=== PATIENT | male | born 1945 | race Caucasian/White ===

== ENCOUNTER → 2016-10-13 | Outpatient (CLI) | payer OTHER ==
[~2016-10-13] MED LIST: ALPH300C PO; ASCA500 PO; ASPCH81 PO; ASPI81TA28 PO; ATOR-22 PO; AZEL0.15 NAE; CEPH500C PO; CRDCD120 PO; CYAN1SUB12 SL; DILT120C67 PO; FLUT0.15 NAE; GABA-113 PO; HYDRELX3 PO; MULT-506 PO; NAPR1TAB9 PO; OMEG10007 PO; OXYB5TAB PO; OXYB5TAB74 PO; PRAM0.5T10 PO; PRLSR20 PO; SAW1000C PO; SIMV40TA2 PO; TAMS0.4C38 PO; TELM80TA4 PO; TRAZ50TA35 PO; VIT D PO; [UNRECOGNIZED DRUG - REMARK] PO
[2016-10-13 17:53] LABS: ALT/SGPT 37 U/L (12-78); AST/SGOT 19 U/L (15-37); BLOOD UREA NITROGEN 20 mg/dl (7-18); BUN/CREATININE RATIO 14.2 (10-20); CALCIUM 8.6 mg/dl (8.5-10.1); CARBON DIOXIDE 27 mmol/L (21-32); CHLORIDE 105 mmol/L (98-107); GLUCOSE 118 mg/dl (70-99); POTASSIUM 3.9 mmol/L (3.5-5.1); SODIUM 141 mmol/L (136-145)
[2016-10-13 17:56] LABS: ALB/GLOB RATIO 1.3 (0.9-2); ALKALINE PHOSPHATASE 71 U/L (45-117)
== END | disposition home or self-care (01) ==
LOC: C.LAB1850 16:19
PROVIDERS: ATTEND Internal Medicine
DX: Z11.59 Encounter for screening for other viral diseases (principal); N28.9 Disorder of kidney and ureter, unspecified

== ENCOUNTER → 2016-10-25 | Outpatient (CLI) | payer OTHER ==
--- NOTE | 2016-10-25 12:11 | DIAGNOSTIC IMAGING REPORT ---
CHEST 2 VIEWS ROUTINE CLINICAL HISTORY: Productive cough COMPARISON STUDY: 06/14/2007 FINDINGS: The cardiac and mediastinal contours are normal. There is no evidence of focal pulmonary consolidation. There is no evidence of failure. No pleural effusions are visualized.[ A linear opacity at the left lung base is felt to be atelectatic. IMPRESSION: No active disease in the chest. Electronically signed by: Johny Baca M.D. 10/25/2016 12:09 PM Dictated Date/Time: 10/25/2016 12:09 PM
== END | disposition home or self-care (01) ==
LOC: C.RAD1850 11:49
PROVIDERS: ATTEND Family Medicine
DX: R05 Cough (principal)

== ENCOUNTER → 2016-12-26 | Outpatient (CLI) | payer OTHER ==
[~2016-12-26] VITALS: Ht 171.5 cm; Wt 109.0 kg
[2016-12-26 11:21] VITALS: BP 125/87; PULSE 84; Ht 171.5 cm; Wt 109.0 kg
== END | disposition home or self-care (01) ==
LOC: C.NEUR 10:43
PROVIDERS: ATTEND Internal Medicine Pulmonary Disease
DX: G47.33 Obstructive sleep apnea (adult) (pediatric) (principal); J31.0 Chronic rhinitis

== ENCOUNTER → 2017-03-28 | Outpatient (CLI) | payer OTHER ==
[2017-03-28 12:32] LABS: BASO % 0.3 %; BASO ABS # 0.02 K/uL (0-0.2); COMPLETE YES; EOS % 3.2 %; HEMATOCRIT 42.7 % (42-52); IG% 0.2 %; LYMPH ABS # 2.05 K/uL (1.2-3.4); MEAN CELL VOLUME 90.7 fL (80-100); MEAN CORPUSCULAR HEMOGLOBIN 32.5 pg (25-34); MEAN CORPUSCULAR HGB CONC 35.8 g/dl (32-36); MEAN PLATELET VOLUME 11.2 fL (7.4-10.4); NEUT % 54.3 %; PLATELET COUNT 126 K/uL (130-400); RED BLOOD COUNT 4.71 M/uL (4.7-6.1); WHITE BLOOD COUNT 6.61 K/uL (4.8-10.8)
[2017-03-28 12:59] LABS: ALT/SGPT 36 U/L (12-78); BLOOD UREA NITROGEN 18 mg/dl (7-18); BUN/CREATININE RATIO 13.1 (10-20); CALCIUM 9.1 mg/dl (8.5-10.1); CARBON DIOXIDE 27 mmol/L (21-32); CHLORIDE 109 mmol/L (98-107); CHOLESTEROL 150 mg/dl (0-200); GLUCOSE 95 mg/dl (70-99); POTASSIUM 4.2 mmol/L (3.5-5.1); SODIUM 143 mmol/L (136-145)
[2017-03-28 13:08] LABS: ALB/GLOB RATIO 1.3 (0.9-2); ALKALINE PHOSPHATASE 66 U/L (45-117); AST/SGOT 20 U/L (15-37); CHOLESTEROL/HDL RATIO 3.1; HDL CHOLESTEROL 48 mg/dl; LDL CHOLESTEROL CALCULATED 69 mg/dl; TRIGLYCERIDES 167 mg/dl (0-150); VERY LOW DENSITY LIPOPROT CALC 33 mg/dl
--- NOTE | 2017-04-10 09:13 | CODING QUERY MEDICAL NECESSITY ---
SUPPORTING DIAGNOSIS NEEDED Dr. Gilmore, A supporting diagnosis is required for the test/procedure performed on this patient in order for us to be reimbursed by the patient's insurance. Please provide a supporting diagnosis for the following test/procedure listed below next to the test name along with your signature. *If there is no additional diagnosis for this patient that would support the following test/procedure please document that below next to the test/procedure. Test(s)/Procedure(s) that require a supporting diagnosis: * ([id number]) B12 VITAMIN LEVEL DIAGNOSIS: DATE OF SERVICE: 03/28/17 Provider Signature: Date: Thank you James Olson [facility] Information Management Once completed, please kindly fax back to [phone] For questions please call [phone]
== END | disposition home or self-care (01) ==
LOC: C.LAB1850 10:50
PROVIDERS: ATTEND Internal Medicine
DX: I10 Essential (primary) hypertension (principal); N40.0 Benign prostatic hyperplasia without lower urinary tract symptoms; G62.9 Polyneuropathy, unspecified

== ENCOUNTER 2017-04-01 19:04 | Emergency (ER) | payer OTHER ==
[~2017-04-01] VITALS: Ht 170.2 cm; Wt 112.0 kg
[~2017-04-01 19:04] MED LIST changes: -ALPH300C PO; -ASPI81TA28 PO; -ATOR-22 PO; -AZEL0.15 NAE; -CYAN1SUB12 SL; -DILT120C67 PO; -FLUT0.15 NAE; -GABA-113 PO; -OXYB5TAB PO; -OXYB5TAB74 PO; -PRAM0.5T10 PO; -SAW1000C PO; -TAMS0.4C38 PO; -TRAZ50TA35 PO
[2017-04-01 19:08] VITALS: Ht 170.2 cm; Wt 112.0 kg
[2017-04-01] MEDS ORDERED: LACTATED RINGER'S 1000ML 1,000 ML IV ONE (19:30)
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
[2017-04-01 19:45] LABS: INR 1.6 (0.9-1.1); PARTIAL THROMBOPLASTIN RATIO 1.4; PROTHROMBIN TIME (PATIENT) 17.6 SECONDS (9.0-12.0)
[2017-04-01] MEDS ORDERED: MoRPHine SULFATE 10 MG/ML CARP/VIAL IV PRN (19:45)
[2017-04-01] MEDS ORDERED: ONDANSETRON INJ 2 MG/ML 2 ML VIAL IV PRN (19:45)
[2017-04-01 19:55] LABS: HEMATOCRIT 19.1 % (42-52); MEAN CELL VOLUME 89.7 fL (80-100); MEAN CORPUSCULAR HEMOGLOBIN 30.5 pg (25-34); MEAN PLATELET VOLUME 9.7 fL (7.4-10.4); PLATELET COUNT 61 K/uL (130-400); PLT ESTIMATE DECREASED; RED BLOOD COUNT 2.13 M/uL (4.7-6.1)
[2017-04-01] MEDS ORDERED: RAPID SEQUENCE INDUCTION BAG ONE (19:57)
[2017-04-01] MEDS ORDERED: MoRPHine SULFATE 4 MG/ML 1 ML CARP\\VIAL ONE (20:00)
[2017-04-01 20:11] LABS: ALB/GLOB RATIO 1.1 (0.9-2); ALKALINE PHOSPHATASE 21 U/L (45-117); ALT/SGPT 11 U/L (12-78); AST/SGOT 9 U/L (15-37); BLOOD UREA NITROGEN 10 mg/dl (7-18); CALCIUM < 5.0 mg/dl (8.5-10.1); CARBON DIOXIDE 11 mmol/L (21-32); CHLORIDE 132 mmol/L (98-107); CREATININE 0.38 mg/dl (0.60-1.40); GLUCOSE 52 mg/dl (70-99); POTASSIUM 1.6 mmol/L (3.5-5.1); SODIUM 157 mmol/L (136-145)
[2017-04-01] MEDS ORDERED: ASPI81TA28 PO (20:11)
[2017-04-01] MEDS ORDERED: DILT120C67 PO (20:11)
[2017-04-01] MEDS ORDERED: ALPH300C PO (20:11)
[2017-04-01] MEDS ORDERED: SAW1000C PO (20:11)
[2017-04-01] MEDS ORDERED: GABA-113 PO (20:11)
[2017-04-01] MEDS ORDERED: OXYB5TAB74 PO (20:11)
[2017-04-01] MEDS ORDERED: FLUT0.15 NAE (20:11)
[2017-04-01] MEDS ORDERED: ATOR-22 PO (20:11)
[2017-04-01] MEDS ORDERED: CYAN1SUB12 SL (20:11)
[2017-04-01] MEDS ORDERED: OXYB5TAB PO (20:19)
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
[2017-04-01 20:23] LABS: ISTAT CREATININE 1.2 mg/dl (0.6-1.3); ISTAT HEMOGLOBIN 9.5 g/dl (14.0-18.0); ISTAT IONIZED CALCIUM 1.07 mmol/l (1.12-1.32)
[2017-04-01] MEDS ORDERED: TAMS0.4C38 PO (20:31)
[2017-04-01] MEDS ORDERED: TRAZ50TA35 PO (20:31)
[2017-04-01] MEDS ORDERED: AZEL0.15 NAE (20:31)
[2017-04-01] MEDS ORDERED: PRAM0.5T10 PO (20:41)
[2017-04-01 20:56] VITALS: BP 116/63; PULSE 76; O2SAT 100
[2017-04-01 20:57] VITALS: TEMP 36.4
[2017-04-01 21:00] VITALS: BP 112/66; PULSE 71; O2SAT 100
[2017-04-01 21:04] LABS: URINE APPEARANCE CLEAR (CLEAR); URINE BILIRUBIN NEG (NEG); URINE COLOR YELLOW; URINE NITRITE NEG (NEG); URINE SPECIFIC GRAVITY 1.023 (1.000-1.030); UROBILINOGEN NEG (NEG); ZZUR CULT IF INDIC CLEAN CATCH NO
[2017-04-01 21:06] LABS: MANUAL MICROSCOPIC REQUIRED? NO; REVIEW REQ? NO
[2017-04-01 21:14] VITALS: O2SAT 100
[2017-04-01 21:15] VITALS: BP 116/68; PULSE 81; TEMP 36.7; O2SAT 100
[2017-04-01 21:35] VITALS: BP 116/81; PULSE 70
== END 2017-04-01 21:36 | disposition short-term general hospital (02) ==
LOC: EDBD 19:04 → C.EDB 19:07
DX: S22.49XA Multiple fractures of ribs, unspecified side, initial encounter for closed fracture (principal); S36.09XA Other injury of spleen, initial encounter; T14.8 Other injury of unspecified body region; T79.4XXA Traumatic shock, initial encounter; V30 Occupant of three-wheeled motor vehicle injured in collision with pedestrian or animal; I10 Essential (primary) hypertension; I48.91 Unspecified atrial fibrillation; Z79.82 Long term (current) use of aspirin; Z79.899 Other long term (current) drug therapy

== ENCOUNTER → 2017-04-09 | Outpatient (CLI) | payer OTHER ==
[~2017-04-09] MED LIST changes: +ALPH300C PO; -ASCA500 PO; -ASPCH81 PO; +ASPI81TA28 PO; +ATOR-22 PO; +AZEL0.15 NAE; -CEPH500C PO; -CRDCD120 PO; +CYAN1SUB12 SL; +DILT120C67 PO; +FLUT0.15 NAE; +GABA-113 PO; -HYDRELX3 PO; -NAPR1TAB9 PO; -OMEG10007 PO; +OXYB5TAB PO; +PRAM0.5T10 PO; +SAW1000C PO; -SIMV40TA2 PO; +TAMS0.4C38 PO; +TRAZ50TA35 PO; -VIT D PO; -[UNRECOGNIZED DRUG - REMARK] PO
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
--- NOTE | 2017-04-27 12:08 | CODING QUERY MEDICAL NECESSITY ---
TREATMENT RENDERED WITHOUT A DIAGNOSIS To promote full compliance with coding requirements relating to patient care, physician participation is requested in all cases of telemetry monitor uncertainty. Please assist us with providing a diagnosis/symptom for the test(s) below: A diagnosis/symptom was not documented on your Order. A valid diagnosis/symptom is required to bill all insurances. Please remember that we are unable to code a diagnosis of rule out, probable, possible, questionable, or suspected. Tests that require a diagnosis: * CT LOWER EXTREM W/O IV CONT DIAGNOSIS: Provider Signature: Date: Thank you Yany Cristobal [facility] Information Management Once completed, please kindly fax back to [phone] For questions please call [phone]
== END | disposition home or self-care (01) ==
LOC: C.CTS 14:59
PROVIDERS: ATTEND Physical Medicine & Rehabilitation
DX: S82.142A Displaced bicondylar fracture of left tibia, initial encounter for closed fracture (principal); X58.XXXA Exposure to other specified factors, initial encounter

== ENCOUNTER → 2017-05-26 | Outpatient (CLI) | payer OTHER ==
--- NOTE | 2017-05-26 10:55 | DIAGNOSTIC IMAGING REPORT ---
VENOUS DOPP LOWER EXT UNILAT CLINICAL HISTORY: 71 years-old Male presenting with CALF PAIN. TECHNIQUE: Real-time grayscale and color and spectral Doppler ultrasound imaging of the veins of the right was performed. Compression and augmentation were also utilized. COMPARISON: None. FINDINGS: Right: Common femoral vein: Patent. Femoral vein: Patent. Greater saphenous vein: Patent. Popliteal vein: Patent. Calf veins: Limited visualization. Other: Heterogeneously hypoechoic laminar collection in the mid medial right calf at the site of clinical interest measuring 8.3 x 0.8 x 5.9 cm. This is avascular on color Doppler. IMPRESSION: 1. No evidence of deep venous thrombosis. 2. Complex fluid collection in the medial mid right calf could represent hematoma or less likely abscess. Electronically signed by: Marc Rocha M.D. 05/26/2017 10:53 AM Dictated Date/Time: 05/26/2017 10:51 AM
== END | disposition home or self-care (01) ==
LOC: C.ULTR 10:11
PROVIDERS: ATTEND Internal Medicine
DX: M79.604 Pain in right leg (principal); M79.89 Other specified soft tissue disorders

== ENCOUNTER → 2017-06-21 | Outpatient (CLI) | payer OTHER ==
[2017-06-21 10:36] LABS: BASO % 0.4 %; BASO ABS # 0.03 K/uL (0-0.2); COMPLETE YES; HEMATOCRIT 47.6 % (42-52); IG% 0.1 %; LYMPH % 36.6 %; LYMPH ABS # 2.48 K/uL (1.2-3.4); MEAN CORPUSCULAR HEMOGLOBIN 31.6 pg (25-34); MEAN CORPUSCULAR HGB CONC 35.5 g/dl (32-36); MEAN PLATELET VOLUME 10.4 fL (7.4-10.4); MONO % 8.7 %; NEUT % 53.2 %; PLATELET COUNT 133 K/uL (130-400); RED BLOOD COUNT 5.35 M/uL (4.7-6.1); WHITE BLOOD COUNT 6.77 K/uL (4.8-10.8)
[2017-06-21 11:14] LABS: ALT/SGPT 31 U/L (12-78); AST/SGOT 18 U/L (15-37); BLOOD UREA NITROGEN 19 mg/dl (7-18); BUN/CREATININE RATIO 14.2 (10-20); CALCIUM 9.8 mg/dl (8.5-10.1); CARBON DIOXIDE 29 mmol/L (21-32); CHLORIDE 104 mmol/L (98-107); GLUCOSE 102 mg/dl (70-99); SODIUM 139 mmol/L (136-145)
[2017-06-21 11:17] LABS: ALB/GLOB RATIO 1.1 (0.9-2); ALKALINE PHOSPHATASE 80 U/L (45-117)
== END | disposition home or self-care (01) ==
LOC: C.LAB1850 10:02
PROVIDERS: ATTEND Internal Medicine
DX: I10 Essential (primary) hypertension (principal)

== ENCOUNTER 2017-11-29 11:41 | Emergency (ER) | payer OTHER ==
[~2017-11-29] VITALS: Ht 170.2 cm; Wt 110.0 kg
[~2017-11-29 11:41] MED LIST changes: -PRAM0.5T10 PO; +PRAM0.5T13 PO; -TELM80TA4 PO; +TELM80TA6 PO
[2017-11-29 11:53] VITALS: TEMP 36.6; Ht 170.2 cm; Wt 110.0 kg
--- NOTE | 2017-11-29 12:56 | DIAGNOSTIC IMAGING REPORT ---
L ANKLE MIN 3 VIEWS ROUTINE CLINICAL HISTORY: R/O BONE INVOLVEMENT COMPARISON: None FINDINGS: Alignment of the left ankle is anatomic. No fracture or suspicious osseous lesion is present. There is no radiographic evidence of osteomyelitis. There is moderate posterior and plantar calcaneal spurring. There is mild ankle soft tissue swelling. Talar dome is intact. IMPRESSION: No acute osseous abnormality of the left ankle. Electronically signed by: Shane Mcdaniel M.D. 11/29/2017 12:54 PM Dictated Date/Time: 11/29/2017 12:53 PM
--- NOTE | 2017-11-29 13:24 | EMERGENCY ROOM VISIT NOTE ---
ED Visit Note First contact with patient: 12:00 The patient was examined by Jorge Molina PA-C. I agree with the history, physical and findings. Please see the note for disposition and details.
[2017-11-29] MEDS ORDERED: CEPH500C PO (13:30)
[2017-11-29] MEDS ORDERED: TRAM-10 PO (13:30)
[2017-11-29 13:57] VITALS: BP 143/82; PULSE 60; O2SAT 93
--- NOTE | 2017-11-29 15:43 | EMERGENCY ROOM VISIT NOTE ---
History First contact with patient: 12:00 Chief Complaint: ANKLE PAIN Stated Complaint: ANKLE PAIN History of Present Illness The patient is a 72 year old male who presents to the Emergency Room with complaints of left ankle pain. The patient has had this discomfort for the past 2 days. He thought the pain was secondary to his neuropathy. When he looked at his ankle this morning, he noticed some redness. The patient denies any recent trauma to the ankle. He has had a prior history of skin infections in his legs. He denies history of gout. He currently denies any pain extending into the knee, thigh or back region. He denies any prior history of DVT. He rates his discomfort a 10 out of 10 that is worsened when the area is touched or bumped Review of Systems 10 system review was performed and was negative except for pertinent positives and negatives as indicated in history of present illness Past Medical/Surgical History Medical Problems: (1) Atrial fibrillation (2) Hypertension (3) Neuropathy of both feet Family History FH: cancer FH: diabetes mellitus FH: heart disease FH: hypertension FH: kidney disease Social History Smoking Status: Never Smoker Alcohol Use: none Marital Status: Occupation Status: employed Current/Historical Medications Scheduled Alpha-Lipoic Acid (Thioctic Ac (Alpha Lipoic Acid), 300 MG PO UD Aspirin (Aspirin Ec), 81 MG PO DAILY Cephalexin Monohydrate (Keflex), 500 MG PO QID Cyanocobalamin (Vitamin B-12), 2,500 MCG SL DAILY Diltiazem Hcl Extended Release (Diltiazem Hcl Er), 120 MG PO DAILY Fluticasone Propionate (Nasal) (Flonase Allergy Relief), 2 SPRAYS ROXANA DAILY Gabapentin (Neurontin), 300 MG PO TID Multivitamin (Multivitamin), 1 TAB PO QAM Omeprazole (Prilosec), 20 MG PO QAM Tamsulosin Hcl (Flomax), 0.8 MG PO HS Telmisartan/Hctz (Micardis Hct 80MG/12.5MG), 1 TAB PO QAM Trazodone Hcl (Trazodone), 50 MG PO HS Scheduled PRN Azelastine Hcl (Astepro), 2 SPRY ROXANA BID PRN for Nasal Congestion Oxybutynin Chloride (Oxybutynin Chloride Er), 5 MG PO DAILY PRN for Urinary Discomfort Pramipexole Dihydrochloride (Pramipexole Dihydrochlori), 0.5 MG PO HS PRN for Restless Legs Tramadol (Ultram), 1-2 TAB PO Q4H PRN for Pain Physical Exam Vital Signs Date Time Temp Pulse Resp B/P (MAP) Pulse Ox O2 Delivery O2 Flow Rate FiO2 11/29/17 13:57 60 18 143/82 93 11/29/17 11:53 36.6 69 16 171/84 92 Physical Exam CONSTITUTIONAL: Healthy and well nourished. Alert and oriented X 3 with positive affect. Patient appears in moderate discomfort from pain. HEENT: Normocephalic, atraumatic. Pupils equal, round and reactive. NECK: Full active range of motion without discomfort. RESPIRATORY: Clear to auscultation bilaterally with no wheezing, crackles, rhonchi or stridor. CARDIOVASCULAR: Regular rate and rhythm with no murmurs, rubs or gallops. MUSCULOSKELETAL: Examination of the left medial ankle shows an area of erythema that is notably tender to palpation. No vesicles, pustules, induration or fluctuance noted. The patient has no edema, erythema or tenderness to palpation of the anterior, posterior or lateral ankle region. Gentle passive flexion and extension of the ankle does not worsen his discomfort. Pedal pulses are intact. INTEGUMENTARY: No rash or other significant dermatologic conditions noted. NEUROLOGIC: No focal neurologic deficits noted. Left foot and toes are sensory intact. Medical Decision & Procedures ED Course Patient history and physical exam were performed. Nurse's notes were reviewed. Vital signs were reviewed, showing a marginally elevated blood pressure of 171 /84. Clinical exam is most consistent with cellulitis. I did discuss other possibilities, including gout, septic joint and other dermatologic conditions. I did suggest treatment with Keflex antibiotics. He should notice a significant improvement of the erythema within the next 48 hours. He was instructed to return to the emergency department for any progressively worsening symptoms or developing fever. The patient was provided a prescription for OxyIR as needed for breakthrough pain. He was warned about sedation and constipation while taking this medicine. He was encouraged to follow-up with his family doctor if symptoms persist. The patient was happy with plan of care, voiced understanding of all discharge instructions, and rated his discomfort a 6 out of 10 at the conclusion of my exam. The patient was also seen and examined by Dr. Maciejczyk, ED attending physician , who agrees with workup and plan of care. Medical Decision See previous section [place] Drug Monitoring Program Search Results: patient reviewed within database, no issues identified Blood Pressure Screening Patient's blood pressure: Elevated blood pressure Blood pressure disposition: Did not require urgent referral Impression Primary Impression: Cellulitis of left ankle Departure Information Dispostion Home / Self-Care Condition FAIR Prescriptions Tramadol (Ultram) 50 Mg Tab 1-2 TAB PO Q4H Y for Pain, #20 TAB For Initial Treatment Prov: Jorge Molina PA 11/29/17 Cephalexin Monohydrate (Keflex) 500 Mg Cap 500 MG PO QID for 7 Days, #28 CAP Prov: Jorge Molina PA 11/29/17 Forms HOME CARE DOCUMENTATION FORM, IMPORTANT VISIT INFORMATION Patient Instructions My [facility] Additional Instructions Complete all Keflex antibiotics as prescribed. Tylenol 1000 mg every 6-8 hours as needed for pain. Do not exceed Tylenol 3000 mg in a 24-hour period. Ultram if needed for worse pain. The redness should start to fade away within the next 48 hours. Follow up with your family doctor as needed with any persistent symptoms. Return to the emergency department for any progressively worsening redness, swelling, fever or pain.
== END 2017-11-29 13:57 | disposition home or self-care (01) ==
LOC: C.EDB 11:42 → C.EDD 13:57
DX: L03.116 Cellulitis of left lower limb (principal); M25.572 Pain in left ankle and joints of left foot; I10 Essential (primary) hypertension; Z79.899 Other long term (current) drug therapy; G62.9 Polyneuropathy, unspecified

== ENCOUNTER → 2017-12-24 | Outpatient (CLI) | payer OTHER ==
[~2017-12-24] MED LIST changes: -ATOR-22 PO; +CHOL100010 PO; +MAGN500T4 PO; +NIAC1CAP PO; +OMEG10007 PO; -SAW1000C PO; +TRAM-10 PO; +VITA-88 PO
[2017-12-24 12:33] LABS: HEMOGLOBIN A1C 5.6 % (4.5-5.6)
[2017-12-24 12:41] LABS: ALT/SGPT 34 U/L (12-78); BLOOD UREA NITROGEN 23 mg/dl (7-18); CALCIUM 9.5 mg/dl (8.5-10.1); CARBON DIOXIDE 31 mmol/L (21-32); CHOLESTEROL 239 mg/dl (0-200); CREATININE 1.31 mg/dl (0.60-1.40); GLUCOSE 104 mg/dl (70-99); POTASSIUM 4.1 mmol/L (3.5-5.1); SODIUM 136 mmol/L (136-145)
[2017-12-24 12:44] LABS: ALKALINE PHOSPHATASE 80 U/L (45-117); AST/SGOT 17 U/L (15-37); LDL CHOLESTEROL CALCULATED 149 mg/dl; TOTAL PROTEIN 7.7 gm/dl (6.4-8.2)
== END | disposition home or self-care (01) ==
LOC: C.LAB1850 09:56
PROVIDERS: ATTEND Internal Medicine
DX: E78.5 Hyperlipidemia, unspecified (principal); R73.03 Prediabetes

== ENCOUNTER → 2017-12-25 | Outpatient (CLI) | payer OTHER ==
[~2017-12-25] VITALS: Ht 170.2 cm; Wt 108.0 kg
[2017-12-25 12:37] VITALS: BP 143/80; PULSE 91; Ht 170.2 cm; Wt 108.0 kg
== END | disposition home or self-care (01) ==
LOC: C.NEUR 12:15
PROVIDERS: ATTEND Internal Medicine Pulmonary Disease
DX: G47.33 Obstructive sleep apnea (adult) (pediatric) (principal); J31.0 Chronic rhinitis; J30.89 Other allergic rhinitis; I10 Essential (primary) hypertension; J45.909 Unspecified asthma, uncomplicated; Z87.891 Personal history of nicotine dependence; E78.5 Hyperlipidemia, unspecified; G47.00 Insomnia, unspecified; G62.9 Polyneuropathy, unspecified; R73.03 Prediabetes; Z85.528 Personal history of other malignant neoplasm of kidney; Z79.82 Long term (current) use of aspirin; Z79.899 Other long term (current) drug therapy

== ENCOUNTER → 2018-01-14 | Day surgery (SDC) | payer OTHER ==
[2017-12-27 09:54] VITALS: Ht 171.5 cm; Wt 107.3 kg
[~2018-01-14] VITALS: Ht 171.5 cm; Wt 107.3 kg
[~2018-01-14] MED LIST changes: +LIDOCAINE HCL 2% 2 ML VIAL (20MG/ML) ONE; +PROPOFOL IV EMULSION 10 MG/ML 20 ML VIAL IV ONE; +SODIUM CHLORIDE 0.9% 500ML 500 ML IV ONE
--- NOTE | 2018-01-14 09:50 | Endo History and Physical ---
History & Physical Date of Service: Jan 14, 2018. Chief Complaint: screening Referring Physician: Dr. Gilmore History of Present Illness 72 yo CM who presents for screening colonoscopy. Past Surgical History Hx Cardiac Surgery: No Hx Internal Defibrillator: No Hx Pacemaker: No Hx Abdominal Surgery: No Hx of Implantable Prosthesis: No Hx Post-Op Nausea and Vomiting: No Hx Cancer Surgery: Yes (RIGHT PARTIAL NEPHRECTOMY) Hx Thoracic Surgery: No Hx Orthopedic: Yes (KNEE ARTHROSCOPY, CTR, SHOULDER ARTHROSCOPY) Hx Urinary Tract Surgery: No Family History None Social History Smoking Status: Former Smoker Hx Substance Use: No Hx Alcohol Use: Yes (2 DRINKS/MONTH) Allergies Coded Allergies: No Known Allergies (Verified , 12/27/17) Current Medications Reported Home Medications Medications Dose Route/Sig Max Daily Dose Days Date Category Dose Instructions Niacin Flush Free (Niacin W/ Inositol) 1 Cap Cap 1 Cap PO QAM 12/27/17 Reported Cvs Vitamin E (Vitamin E) 400 Unit Cap 400 Units PO QAM 12/27/17 Reported Vitamin D (Cholecalciferol) 1,000 Unit Tab 1,000 Units PO QAM 12/27/17 Reported Keyes-3 (Fish Oil) 1 Ea Cap 1 Cap PO QAM 12/27/17 Reported Magnesium (Magnesium Oxide (Mg Supplement) 500 Mg Tab 500 Mg PO UD 12/27/17 Reported Ultram (Tramadol HCl) 50 Mg Tab 1-2 Tab PO Q4H PRN 11/29/17 Rx For Initial Treatment Pramipexole Dihydrochlori (Pramipexole Dihydrochloride) 0.5 Mg Tab 0.5 Mg PO HS PRN 04/01/17 Reported Flomax (Tamsulosin Hcl) 0.4 Mg Cap 0.8 Mg PO HS 04/01/17 Reported Astepro (Azelastine Hcl) 0.15 % Spr 2 [place] ROXANA BID PRN 04/01/17 Reported Trazodone (Trazodone HCl) 50 Mg Tab 50 Mg PO HS 04/01/17 Reported Oxybutynin Chloride Er (Oxybutynin Chloride) 5 Mg Tab 5 Mg PO DAILY PRN 04/01/17 Reported Neurontin (Gabapentin) 300 Mg Cap 300 Mg PO TID 04/01/17 Reported Flonase Allergy Relief (Fluticasone Propionate (Nasal)) 50 Mcg/Act Spr 2 Sprays ROXANA QAM 04/01/17 Reported Vitamin B-12 (Cyanocobalamin) 2,500 Mcg Sub 2,500 Mcg SL DAILY 04/01/17 Reported Alpha Lipoic Acid (Alpha-Lipoic Acid (Thioctic Ac) 300 Mg Cap 300 Mg PO UD 04/01/17 Reported Diltiazem Hcl Er (Diltiazem Hcl Extended Release) 120 Mg Cap 120 Mg PO QAM 04/01/17 Reported Aspirin Ec (Aspirin) 81 Mg Tab 81 Mg PO QPM 04/01/17 Reported Multivitamin (Multivitamins) Tab 1 Tab PO QAM 11/22/10 Reported Micardis Hct 80MG/12.5MG (Telmisartan/Hydrochlorothiazide) Tab 0.5 Tab PO QAM 11/22/10 Reported Prilosec (Omeprazole) 20 Mg Capcr 20 Mg PO QAM 05/01/08 Reported Vital Signs Weight (Kilograms): 107.27 Height (Feet): 5 Height (Inches): 7.5 Date Time Temp Pulse Resp B/P (MAP) Pulse Ox O2 Delivery O2 Flow Rate FiO2 01/14/18 09:41 36.6 52 18 139/91 (107) 93 Room Air Physical Exam General Appearance: WD/WN, no apparent distress Respiratory/Chest: Auscultation: breath sounds normal Cardiovascular: Heart Auscultation: RRR Abdomen: Bowel Sounds: normal Inspection & Palpation: soft, non-distended, no tenderness, guarding & rebound Assessment and Plan Assessment: 72 yo CM who presents for screening colonoscopy. Plan: Proceed with colonoscopy.
--- NOTE | 2018-01-14 11:04 | GI REPORT ---
Procedure Date: 01/14/2018 10:22 AM Procedure: Colonoscopy Indications: Screening for colorectal malignant neoplasm Medicines: Monitored Anesthesia Care Complications: No immediate complications. Estimated Blood Loss: Estimated blood loss: none. Procedure: Pre-Anesthesia Assessment: - Prior to the procedure, a History and Physical was performed, and patient medications and allergies were reviewed. The patient's tolerance of previous anesthesia was also reviewed. The risks and benefits of the procedure and the sedation options and risks were discussed with the patient. All questions were answered, and informed consent was obtained. Prior Anticoagulants: The patient has taken aspirin, last dose was 3 days prior to procedure. ASA Grade Assessment: III - A patient with severe systemic disease. After reviewing the risks and benefits, the patient was deemed in satisfactory condition to undergo the procedure. After I obtained informed consent, the scope was passed under direct vision. Throughout the procedure, the patient's blood pressure, pulse, and oxygen saturations were monitored continuously. The scope was introduced through the anus and advanced to the terminal ileum. The colonoscopy was performed without difficulty. The patient tolerated the procedure well. The quality of the bowel preparation was good. The terminal ileum, ileocecal valve, appendiceal orifice, and rectum were photographed. Findings: The perianal and digital rectal examinations were normal. Two sessile polyps were found in the transverse colon and ascending colon. The polyps were 5 to 7 mm in size. These polyps were removed with a hot snare. Resection and retrieval were complete. A 8 mm polyp was found in the transverse colon. The polyp was flat. The polyp was removed with a hot snare. Resection and retrieval were complete. To prevent bleeding after the polypectomy, one hemostatic clip was successfully placed (MR conditional). There was no bleeding at the end of the procedure. Multiple small-mouthed diverticula were found in the sigmoid colon. Non-bleeding internal hemorrhoids were found during retroflexion. The hemorrhoids were small. Impression: - Two 5 to 7 mm polyps in the transverse colon and in the ascending colon, removed with a hot snare. Resected and retrieved. - One 8 mm polyp in the transverse colon, removed with a hot snare. Resected and retrieved. Clip (MR conditional) was placed. - Diverticulosis in the sigmoid colon. - Non-bleeding internal hemorrhoids. Recommendation: - Resume previous diet. - Continue present medications. - Repeat colonoscopy for surveillance based on pathology results. - Return to primary care physician as previously scheduled. Greg Rivero, DO 01/14/2018 11:04:08 AM This report has been signed electronically. Note Initiated On: 01/14/2018 10:22 AM I attest to the content of the Intraoperative Record and orders documented therein, exceptions below
--- NOTE | 2018-01-14 11:16 | Anesthesiology Progress Note ---
Anesthesia Post Op Note Date & Time Jan 14, 2018 at 11:16 Vital Signs Pain Intensity: 0 Vital Signs Past 12 Hours Date Time Temp Pulse Resp B/P (MAP) Pulse Ox O2 Delivery O2 Flow Rate FiO2 01/14/18 11:05 58 16 114/69 (84) 94 Room Air 01/14/18 09:41 36.6 52 18 139/91 (107) 93 Room Air Notes Mental Status: alert / awake / arousable, participated in evaluation Pt Amnestic to Procedure: Yes Nausea / Vomiting: adequately controlled Pain: adequately controlled Airway Patency, RR, SpO2: stable & adequate BP & HR: stable & adequate Hydration State: stable & adequate Anesthetic Complications: no major complications apparent
[2018-01-14 11:35] VITALS: BP 130/79; PULSE 49; O2SAT 94
--- NOTE | 2018-01-14 12:08 | Discharge Instructions ---
Endoscopy Patient Instructions Date / Procedure(s) Performed Jan 14, 2018. Colonoscopy Allergy Information Coded Allergies: No Known Allergies (Verified , 12/27/17) Discharge Date / Findings Jan 14, 2018. Colon polyps Diverticulosis Internal hemorrhoids Medication Instructions Stopped Medication(s): stopped ASA and vitamins and supplements on Sunday Restart Stopped Medication(s): OK to resume all medications today as prescribed Reported Home Medications Medications Dose Route/Sig Max Daily Dose Days Date Category Dose Instructions Niacin Flush Free (Niacin W/ Inositol) 1 Cap Cap 1 Cap PO QAM 12/27/17 Reported [facility] Vitamin E (Vitamin E) 400 Unit Cap 400 Units PO QAM 12/27/17 Reported Vitamin D (Cholecalciferol) 1,000 Unit Tab 1,000 Units PO QAM 12/27/17 Reported [place]-3 (Fish Oil) 1 Ea Cap 1 Cap PO QAM 12/27/17 Reported Magnesium (Magnesium Oxide (Mg Supplement) 500 Mg Tab 500 Mg PO UD 12/27/17 Reported Ultram (Tramadol HCl) 50 Mg Tab 1-2 Tab PO Q4H PRN 11/29/17 Rx For Initial Treatment Pramipexole Dihydrochlori (Pramipexole Dihydrochloride) 0.5 Mg Tab 0.5 Mg PO HS PRN 04/01/17 Reported Flomax (Tamsulosin Hcl) 0.4 Mg Cap 0.8 Mg PO HS 04/01/17 Reported Astepro (Azelastine Hcl) 0.15 % Spr 2 Velma ROXANA BID PRN 04/01/17 Reported Trazodone (Trazodone HCl) 50 Mg Tab 50 Mg PO HS 04/01/17 Reported Oxybutynin Chloride Er (Oxybutynin Chloride) 5 Mg Tab 5 Mg PO DAILY PRN 04/01/17 Reported Neurontin (Gabapentin) 300 Mg Cap 300 Mg PO TID 04/01/17 Reported Flonase Allergy Relief (Fluticasone Propionate (Nasal)) 50 Mcg/Act Spr 2 Sprays ROXANA QAM 04/01/17 Reported Vitamin B-12 (Cyanocobalamin) 2,500 Mcg Sub 2,500 Mcg SL DAILY 04/01/17 Reported Alpha Lipoic Acid (Alpha-Lipoic Acid (Thioctic Ac) 300 Mg Cap 300 Mg PO UD 04/01/17 Reported Diltiazem Hcl Er (Diltiazem Hcl Extended Release) 120 Mg Cap 120 Mg PO QAM 04/01/17 Reported Aspirin Ec (Aspirin) 81 Mg Tab 81 Mg PO QPM 04/01/17 Reported Multivitamin (Multivitamins) Tab 1 Tab PO QAM 11/22/10 Reported Micardis Hct 80MG/12.5MG (Telmisartan/Hydrochlorothiazide) Tab 0.5 Tab PO QAM 11/22/10 Reported Prilosec (Omeprazole) 20 Mg Capcr 20 Mg PO QAM 05/01/08 Reported Provider Instructions Activity Restrictions - No exercising or heavy lifting for 24 hours. - Do not drink alcohol the day of the procedure. - Do not drive a car or operate machinery until the day after the procedure. - Do not make any important decisions or sign important papers in 24 hours after the procedure. Following Day: - Return to full activity which may include returning to work/school. Diet Start your diet with liquids and light foods (jello, soup, juice, toast). Then eat your usual diet if not nauseated. Treatment For Common After Affects For mild abdominal pain, bloating, or excessive gas: - Rest - Eat lightly - Lie on right side Follow-Up Information Follow-up with Dr. Gilmore as scheduled Anesthesia Information What You Should Know You have had a procedure that required some medicine to reduce anxiety and discomfort. This treatment is called moderate sedation. After receiving the treatment, you may be sleepy, but you will be able to breathe on your own. The effects of the treatment may last for several hours. Follow these instructions along with Activity/Diet recommendations noted above: * Do NOT do anything where dizziness or clumsiness would be dangerous. * Rest quietly at home today, then you can be up and about tomorrow. * Have a responsible person stay with you the rest of today. * You may have had an I.V. today. If so, you may take the dressing off later today. Recommendations Call your doctor if: * Trouble breathing * Continuous vomiting for more than 24 hours * Temperature above 101 degrees * Severe abdominal pain or bloating * Pain not relieved by pain medicine ordered * There is increased drainage or redness from any incision * A large amount of rectal bleeding greater than 2-3 tablespoons. (If you had a polyp/s removed or have hemorrhoids, a small amount of blood - from the rectum is to be expected.) * You have any unanswered questions or concerns. IN THE EVENT OF A SERIOUS EMERGENCY, GO TO THE NEAREST EMERGENCY ROOM Your discharge instructions were prepared by provider Greg Rivero. Patient Instructions Signature Page Chriss Sen Patient (or Guardian) Signature/Date: I have read and understand the instructions given to me by my caregivers. Caregiver/RN/Doctor Signature/Date: The above-named patient and/or guardian has received patient instructions on this date. + Original Patient Signature Page (only) stays with chart. Please make copy for patient.
== END | disposition home or self-care (01) ==
LOC: C.GI 09:20
PROVIDERS: ATTEND Internal Medicine
DX: Z12.11 Encounter for screening for malignant neoplasm of colon (principal); D12.2 Benign neoplasm of ascending colon; D12.3 Benign neoplasm of transverse colon; K57.30 Diverticulosis of large intestine without perforation or abscess without bleeding; K64.8 Other hemorrhoids; G47.33 Obstructive sleep apnea (adult) (pediatric); I10 Essential (primary) hypertension; Z90.5 Acquired absence of kidney; Z98.890 Other specified postprocedural states; Z87.891 Personal history of nicotine dependence; Z79.82 Long term (current) use of aspirin; Z79.899 Other long term (current) drug therapy; Z85.528 Personal history of other malignant neoplasm of kidney

== ENCOUNTER → 2018-01-29 | Outpatient (CLI) | payer OTHER ==
[~2018-01-29] MED LIST changes: -LIDOCAINE HCL 2% 2 ML VIAL (20MG/ML) ONE; -PROPOFOL IV EMULSION 10 MG/ML 20 ML VIAL IV ONE; -SODIUM CHLORIDE 0.9% 500ML 500 ML IV ONE
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
--- NOTE | 2018-01-29 13:48 | DIAGNOSTIC IMAGING REPORT ---
LEFT FOOT 3 VIEWS CLINICAL HISTORY: Left foot pain. FINDINGS: 3 views of the left foot are compared to study dated 03/25/2014. The skeletal structures are osteopenic. No fracture is identified. Degenerative spurring is seen along the dorsal aspect of the tarsal bones. Minimal arthritic change is seen at the first metatarsophalangeal joint. Large dorsal and plantar calcaneal enthesophytes are identified. The overlying soft tissues are within normal limits. IMPRESSION: 1. No left foot fracture is identified. 2. Osteopenia, mild degenerative change, and large heel spurs as above. Electronically signed by: Romario Murphy M.D. 01/29/2018 1:46 PM Dictated Date/Time: 01/29/2018 1:45 PM
== END | disposition home or self-care (01) ==
LOC: C.RAD1850 13:17
PROVIDERS: ATTEND Internal Medicine
DX: M85.872 Other specified disorders of bone density and structure, left ankle and foot (principal); M19.072 Primary osteoarthritis, left ankle and foot; M77.32 Calcaneal spur, left foot; S89.92XA Unspecified injury of left lower leg, initial encounter; X58.XXXA Exposure to other specified factors, initial encounter

== ENCOUNTER 2020-11-15 07:40 | Inpatient (IN) ==
[2020-11-15] MEDS ORDERED: ACETAMINOPHEN 1,000 MG/100 ML VIAL IV STA (08:15)
[2020-11-15] MEDS ORDERED: IPRATROPIUM BROMIDE/ALBUTEROL respimat INH INH STA (08:15)
[2020-11-15] MEDS ORDERED: SODIUM CHLORIDE 0.9% 1000ML 1,000 ML IV ONE (08:15)
[2020-11-15] MEDS ORDERED: guaiFENesin 600 MG TABCR PO STA (08:15)
[2020-11-15] MEDS ORDERED: DEXAMETHASONE SOD INJ 10 MG/ML VIAL IV ONE (08:16)
[2020-11-15 08:25] LABS: Basophils # (auto) 0.01 K/uL (0-0.2); Basophils % (auto) 0.1 %; Eosinophils # (auto) 0.01 K/uL (0-0.5); Eosinophils % (auto) 0.1 %; Hematocrit (blood only) 48.8 % (42-52); Hemoglobin 17.1 g/dL (14.0-18.0); Immature Granulocytes # (auto) 0.03 K/uL (0.00-0.02); Immature Granulocytes % (auto) 0.4 %; Lymphocytes # (auto) 1.46 K/uL (1.2-3.4); Lymphocytes % (auto) 19.3 %; Mean Corpuscular Volume 91.4 fL (80-100); Mean Platelet Volume 10.9 fL (7.4-10.4); Monocytes # (auto) 0.61 K/uL (0.11-0.59); Neutrophils # (auto) 5.46 K/uL (1.4-6.5); Neutrophils % (auto) 72.1 %; Platelet Count 137 K/uL (130-400); RDW Coefficient of Variation 12.6 % (11.5-14.5); RDW Standard Deviation 42.2 fL (36.4-46.3); Red Blood Count 5.34 M/uL (4.7-6.1); White Blood Count 7.58 K/uL (4.8-10.8)
[2020-11-15 08:45] LABS: Alanine Aminotransferase 50 U/L (12-78); Albumin Level 3.4 gm/dl (3.4-5.0); Aspartate Aminotransferase 58 U/L (15-37); BUN Creatinine Ratio 18.1 (10-20); Bilirubin Direct 0.2 mg/dl (0-0.2); Blood Urea Nitrogen 25 mg/dl (7-18); Calcium 9.3 mg/dl (8.5-10.1); Carbon Dioxide 30 mmol/L (21-32); Chloride 104 mmol/L (98-107); Creatinine Clr Calc Pharmacy 57.4 ml/min; Est GFR (African American) 58.9; Est GFR (Non-African American) 50.8; Glucose 86 mg/dl (70-99); Lipase 112 U/L (73-393); Magnesium 2.4 mg/dl (1.8-2.4); Potassium 3.5 mmol/L (3.5-5.1); Sodium 140 mmol/L (136-145)
[2020-11-15 08:48] LABS: Albumin Globulin Ratio 0.8 (0.9-2); Alkaline Phosphatase 55 U/L (45-117); Bilirubin,Total 0.9 mg/dl (0.2-1); Globulin 4.2 gm/dl (2.5-4.0); Phosphorus 1.8 mg/dl (2.5-4.9); Total Protein 7.6 gm/dl (6.4-8.2); Troponin I < 0.015 ng/ml (0-0.045)
--- NOTE | 2020-11-15 09:00 | XRay Report ---
XR chest 1V portable CLINICAL HISTORY: Atypical chest pain COMPARISON STUDY: Chest x-ray dated 2006, CT scan performed January 2020 FINDINGS: The heart is the upper limits of normal in size. There is aortic tortuosity/ectasia. There are multiple old left-sided rib fractures. There is bilateral mucosal thickening, a finding which debbie ears new. Diagnostic considerations include mild pulmonary vascular congestion versus interstitial in flammatory/infectious process. Clinical and radiographic follow-up is recommended.[ IMPRESSION: Interval development of mild interstitial thickening. Likely diagnostic considerations in clude mild pulmonary vascular congestion versus interstitial infectious/inflammatory process. Clinica l and radiographic follow-up is recommended. ACT 112: Negative or not required by law. Electronically signed by: Johny Baca M.D. 11/15/2020 8:59 AM
--- NOTE | 2020-11-15 09:50 | Emergency Department Note ---
Impression & Plan Pneumonia due to COVID-19 virus, Hypoxemia, Former smoker, Hypophosphatemia ED Provider Note NAME: HAZEL LOCKETT AGE: 75 SEX: M ARRIVES VIA: Ambulance INFORMANT: Patient, ED PROVIDER(S): Javy Herron MD CHIEF COMPLAINT: Shortness of breath. PLAN: Disposition: Admit MEDICAL DECISION MAKING: The patient is a pleasant 75 y/o gentleman with a pmhx of HTN, HLD, former smoker who presents to the emergency department with worsening shortness of br eath, cough, body aches, diarrhea, sore throat evolving over the past 2 weeks with Covid19 test performed on 11/10 at [facility] that returned positive yesterday. The patient reports he was also diagnosed with PNA on CXR and was started on Azithromycin and prednisone but has had worsening symptoms over the past 24 hours and has noted low home O2 saturations. On arrival the patient is fatigued uncomfortable-appearing but in NAD, AF, O2 saturation 87% on RA and otherwise VSS. The patient appears clinically dry. He has scant intermittent wheeze and diminished at bases. EKG without overt acute ischemia. CXR with interstitial thickening, which is suspicious for PNA given patient's known Covid19 status. WBC, H/H, platelets wnl. Chemistry without acidosis. BUN 25 c/w patient's clinially dry appearance. Phosphorus 1.8 with repletion initiated. AST 58, nonspecific. Otherwise, LFTs and electrolytes unremarkable. Troponin negative/undetectable. BNP wnl. Treatment initiated with IVF hydration, apap, guaifenesin, dexamethasone, and combivent. Given patient hypoxia in the setting of Covid19 pna, reasonable to admit for further management. Patient agrees. Dr. Hoffman, [facility] hospitalist, will evaluate the patient for admission. Triage Nursing notes reviewed and agree them. Prior medical records reviewed Vital Signs: reviewed and remarkable for hypoxia. Differential diagnosis: Reactive airway disease, pneumonia, pneumothorax, COPD, CHF, infections, cardiac ischemia, pulmonary embolism, musculoskeletal, gastrointestinal, as well as other pathologies. ER treatment provided: See below. Diagnostics interpreted by me: ECG: Sinus bradycardia, 57 bpm, incomplete but right bundle branch block, no ectopy, no overt ST elevation depression, QTC 100. Cardiac Monitoring: An order for continuous cardiac monitoring was placed and demonstrated Sinus bradycardia, 57 bpm, no ectopy Laboratory studies: See below Imaging studies: XR chest 1V portable CLINICAL HISTORY: Atypical chest pain COMPARISON STUDY: Chest x-ray dated 2006, CT scan performed January 2020 FINDINGS: The heart is the upper limits of normal in size. There is aortic tortuosity/ectasia. There are multiple old left-sided rib fractures. There is bilateral mucosal thickening, a finding which appears new. Diagnostic considerations include mild pulmonary vascular congestion versus interstitial inflammatory/infectious process. Clinical and radiographic follow-up is recommended.[ IMPRESSION: Interval development of mild interstitial thickening. Likely diagnostic considerations include mild pulmonary vascular congestion versus interstitial infectious/inflammatory process. Clinical and radiographic follow- up is recommended. ACT 112: Negative or not required by law. Electronically signed by: Johny Baca M.D. 11/15/2020 8:59 AM Consultation(s): Dr. Hoffman, [facility] hospitalist. HPI: The patient is a pleasant 75 y/o gentleman with a pmhx of HTN, HLD, former smoker who presents to the emergency department with worsening shortness of breath, cough, body aches, diarrhea, sore throat evolving over the past 2 weeks with Covid19 test performed on 11/10 at [facility] that returned positive yesterday. The patient reports he was also diagnosed with PNA on CXR and was started on Azithromycin and prednisone but has had worsening symptoms over the past 24 hours and has noted low home O2 saturations. ROS: See above HPI for pertinent positives & negatives. A total of 10 systems reviewed and were otherwise negative. PAST MEDICAL HISTORY:See Below PAST SURGICAL HISTORY:See Below FAMILY HISTORY:See Below SOCIAL HISTORY:See Below HOME MEDICATIONS:See Below ALLERGIES:See Below VITALS:See Below PHYSICAL EXAMINATION: GENERAL: Awake, alert, fatigued/uncomfortable-appearing, in no distress HENT: Normocephalic, atraumatic. Oropharynx with dry mucous membranes and otherwise unremarkable. . EYES: Normal conjunctiva. Sclera non-icteric. NECK: Supple. No nuchal rigidity. FROM. No JVD. RESPIRATORY: Scant intermittent wheeze and diminished at bases. CARDIAC: Regular rate, normal rhythm. Extremities warm and well perfused. Pulses equal. ABDOMEN: Soft, non-distended. No tenderness to palpation. No rebound or guarding. No masses. RECTAL: Deferred. MUSCULOSKELETAL: Chest examination reveals no tenderness. The back is symmetrical on inspection without obvious abnormality. There is no CVA tenderness to palpation. No joint edema. LOWER EXTREMITIES: Calves are equal size bilaterally and non-tender. No edema. No discoloration. NEURO: Normal sensorium. No sensory or motor deficits noted. SKIN: No rash or jaundice noted. Javy Herron MD Past Med/Surg History Medical History (Updated 11/15/20 @ 20:58 by Javy Herron MD) Benign essential hypertension Enlarged prostate without lower urinary tract symptoms (luts) Former smoker Generalized osteoarthritis History of malignant neoplasm of kidney Hyperlipidemia Insomnia Internal hemorrhoids Memory loss Neuropathy of both feet Obstructive sleep apnea Peripheral neuropathy Postnasal drip Prediabetes Renal/ureteral disease Thoracic aortic aneurysm Tubular adenoma of colon Surgical History S/P carpal tunnel release S/P nasal septoplasty S/p nephrectomy S/P shoulder surgery S/P tonsillectomy and adenoidectomy Family History Mother Kidney malignancy Grandfather Prostate cancer Myocardial infarction Denies family history of Colon cancer Ovarian cancer Breast cancer Social History Smoking Status: Former smoker Smoking End Date: 1981; Hx Alcohol Use: Yes Alcohol type: beer Hx Substance Use: No Preferred Language: Faroese Communication Ability: Effective Visual Impairment: No Limitations Hearing Ability: Normal 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 Beliefs That Will Affect Care: None marital status: Current Living Situation: Spouse current occupational status: employed Other Information That Helps Us Care for You: No Feels Safe at Home: Yes Safety Concerns: Feels Safe At This Time Childhood Exposure to Second-Hand Smoke: Yes Dental Care, Regularly: Yes Physical Activity Frequency: 5-6 Times per Week Seatbelt Use: always Sunscreen Use: Yes Assistive Devices: Oxygen - Continuous Allergies Allergies Allergy/AdvReac Type Severity Reaction Status Date / Time No Known Drug Allergies Allergy Verified 11/15/20 09:54 house dust mite AdvReac Verified 11/15/20 09:54 Home Meds Home Medications Medication Instructions Recorded Confirmed aspirin 81 mg tablet 81 mg PO DAILY tab 06/26/19 11/15/20 diltiazem HCl 120 mg 120 mg PO DAILY #90 cap 06/26/19 11/15/20 capsule,extended release 24 hr fluticasone propionate 50 2 sprays INTRANASAL BID #48 gm 06/26/19 11/15/20 mcg/actuation nasal spray,suspension telmisartan 80 0.5 tab PO DAILY #90 tab 06/26/19 11/15/20 mg-hydrochlorothiazide 12.5 mg tablet benzonatate 100 mg PO [id number] 11/15/20 11/15/20 finasteride 5 mg PO DAILY 11/15/20 11/15/20 gabapentin 600 mg PO DAILY 11/15/20 11/15/20 trazodone 100 mg PO QPM 11/15/20 11/15/20 Previous Rx's Medication Instructions Recorded pramipexole 0.5 mg tablet 0.5 mg PO QPM #90 tab 03/05/19 cholecalciferol (vitamin D3) 125 5,000 units PO DAILY #30 cap 06/27/19 mcg (5,000 unit) capsule omeprazole 20 mg capsule,delayed 40 mg PO DAILY #90 cap 06/27/19 release tamsulosin 0.4 mg capsule 0.8 mg PO QPM #180 cap 04/26/20 pravastatin 10 mg tablet 10 mg PO DAILY #90 tab 05/24/20 Results & Data (ED) Vital Signs Vital Signs - 24 hr 11/15/20 07:40 11/15/20 07:55 11/15/20 09:32 Temperature 36.8 C Temperature Source Oral Pulse Rate 56 L 59 L Pulse Rate [Apical] 64 Pulse Rhythm Regular Regular Pulse Rhythm [Apical] Regular Pulse Strength Normal Pulse Strength [Apical] Normal Respiratory Rate 20 20 Respiratory Effort / Characteristics Non-Labored Spontaneous Short of Breath Non-Labored Spontaneous Respiratory Depth Normal Normal Respiratory Pattern Regular Regular Blood Pressure 136/71 Blood Pressure [Right Arm] 133/82 Blood Pressure Mean 92 Blood Pressure Mean [Right Arm] 99 Blood Pressure Position Lying Blood Pressure Position [Right Arm] Lying Pulse Oximetry 87 L 92 92 Oxygen Delivery Method Nasal Cannula Nasal Cannula Nasal Cannula Oxygen Flow Rate 4 4 5 Sepsis Recent Fever Within 48 Hours No Sepsis New/Unexplained Change in Mental Status No Sepsis Action Taken by Nursing No Action Required Oxygen Flow Rate - Titration 4 Pulse Oximetry Post Tiitration 92 Laboratory Data Attestation: I reviewed the patient's lab results. Result diagrams: 11/15/20 08:05 11/15/20 08:05 Lab Results 11/15/20 11/15/20 11/15/20 Range/Units 08:05 08:05 08:05 WBC 7.58 (4.8-10.8) K/uL RBC 5.34 (4.7-6.1) M/uL Hgb 17.1 (14.0-18.0) g/dL Hct 48.8 (42-52) % MCV 91.4 (80-100) fL MCH 32.0 (25-34) pg MCHC 35.0 (32-36) g/dL RDW Std Deviation 42.2 (36.4-46.3) fL RDW Coeff of Linda 12.6 (11.5-14.5) % Plt Count 137 (130-400) K/uL MPV 10.9 H (7.4-10.4) fL Immature Gran % (Auto) 0.4 % Neut % (Auto) 72.1 % Lymph % (Auto) 19.3 % [place] % (Auto) 8.0 % Eos % (Auto) 0.1 % Baso % (Auto) 0.1 % Neut # (Auto) 5.46 (1.4-6.5) K/uL Lymph # (Auto) 1.46 (1.2-3.4) K/uL [place] # (Auto) 0.61 H (0.11-0.59) K/uL Eos # (Auto) 0.01 (0-0.5) K/uL Baso # (Auto) 0.01 (0-0.2) K/uL Immature Gran # (Auto) 0.03 H (0.00-0.02) K/uL D-Dimer (0-500) ug/L FEU Sodium 140 (136-145) mmol/L Potassium 3.5 (3.5-5.1) mmol/L Chloride 104 (98-107) mmol/L Carbon Dioxide 30 (21-32) mmol/L Anion Gap 6.0 (3-11) BUN 25 H (7-18) mg/dl Creatinine 1.37 (0.6-1.4) mg/dl Est Cr Clr Drug Dosing 57.4 ml/min Est GFR ( Amer) 58.9 Est GFR (Non-Af Amer) 50.8 BUN/Creatinine Ratio 18.1 (10-20) Glucose 86 (70-99) mg/dl Calcium 9.3 (8.5-10.1) mg/dl Phosphorus 1.8 L (2.5-4.9) mg/dl Magnesium 2.4 (1.8-2.4) mg/dl Ferritin (8-388) ng/ml Total Bilirubin 0.9 (0.2-1) mg/dl Direct Bilirubin 0.2 (0-0.2) mg/dl AST 58 H (15-37) U/L ALT 50 (12-78) U/L Alkaline Phosphatase 55 (45-117) U/L Lactate Dehydrogenase (87-241) U/L Total Creatine Kinase (39-308) U/L Troponin I < 0.015 (0-0.045) ng/ml C-Reactive Protein (0-0.29) mg/dl NT-Pro-B Natriuret Pep 288 (0-900) pg/ml Total Protein 7.6 (6.4-8.2) gm/dl Albumin 3.4 (3.4-5.0) gm/dl Globulin 4.2 H (2.5-4.0) gm/dl Albumin/Globulin Ratio 0.8 L (0.9-2) Lipase 112 (73-393) U/L Procalcitonin (0-0.5) ng/ml Hepatitis C Ab Screen (Neg) 11/15/20 11/15/20 11/15/20 Range/Units 08:05 08:05 08:05 WBC (4.8-10.8) K/uL RBC (4.7-6.1) M/uL Hgb (14.0-18.0) g/dL Hct (42-52) % MCV (80-100) fL MCH (25-34) pg MCHC (32-36) g/dL RDW Std Deviation (36.4-46.3) fL RDW Coeff of Linda (11.5-14.5) % Plt Count (130-400) K/uL MPV (7.4-10.4) fL Immature Gran % (Auto) % Neut % (Auto) % Lymph % (Auto) % [place] % (Auto) % Eos % (Auto) % Baso % (Auto) % Neut # (Auto) (1.4-6.5) K/uL Lymph # (Auto) (1.2-3.4) K/uL [place] # (Auto) (0.11-0.59) K/uL Eos # (Auto) (0-0.5) K/uL Baso # (Auto) (0-0.2) K/uL Immature Gran # (Auto) (0.00-0.02) K/uL D-Dimer (0-500) ug/L FEU Sodium (136-145) mmol/L Potassium (3.5-5.1) mmol/L Chloride (98-107) mmol/L Carbon Dioxide (21-32) mmol/L Anion Gap (3-11) BUN (7-18) mg/dl Creatinine (0.6-1.4) mg/dl Est Cr Clr Drug Dosing ml/min Est GFR ( Amer) Est GFR (Non-Af Amer) BUN/Creatinine Ratio (10-20) Glucose (70-99) mg/dl Calcium (8.5-10.1) mg/dl Phosphorus (2.5-4.9) mg/dl Magnesium (1.8-2.4) mg/dl Ferritin 870.0 H (8-388) ng/ml Total Bilirubin (0.2-1) mg/dl Direct Bilirubin (0-0.2) mg/dl AST (15-37) U/L ALT (12-78) U/L Alkaline Phosphatase (45-117) U/L Lactate Dehydrogenase 547 H (87-241) U/L Total Creatine Kinase 459 H (39-308) U/L Troponin I (0-0.045) ng/ml C-Reactive Protein 4.10 H (0-0.29) mg/dl NT-Pro-B Natriuret Pep (0-900) pg/ml Total Protein (6.4-8.2) gm/dl Albumin (3.4-5.0) gm/dl Globulin (2.5-4.0) gm/dl Albumin/Globulin Ratio (0.9-2) Lipase (73-393) U/L Procalcitonin < 0.05 (0-0.5) ng/ml Hepatitis C Ab Screen (Neg) 11/15/20 11/15/20 Range/Units 08:05 08:21 WBC (4.8-10.8) K/uL RBC (4.7-6.1) M/uL Hgb (14.0-18.0) g/dL Hct (42-52) % MCV (80-100) fL MCH (25-34) pg MCHC (32-36) g/dL RDW Std Deviation (36.4-46.3) fL RDW Coeff of Linda (11.5-14.5) % Plt Count (130-400) K/uL MPV (7.4-10.4) fL Immature Gran % (Auto) % Neut % (Auto) % Lymph % (Auto) % [place] % (Auto) % Eos % (Auto) % Baso % (Auto) % Neut # (Auto) (1.4-6.5) K/uL Lymph # (Auto) (1.2-3.4) K/uL [place] # (Auto) (0.11-0.59) K/uL Eos # (Auto) (0-0.5) K/uL Baso # (Auto) (0-0.2) K/uL Immature Gran # (Auto) (0.00-0.02) K/uL D-Dimer 1430 H* (0-500) ug/L FEU Sodium (136-145) mmol/L Potassium (3.5-5.1) mmol/L Chloride (98-107) mmol/L Carbon Dioxide (21-32) mmol/L Anion Gap (3-11) BUN (7-18) mg/dl Creatinine (0.6-1.4) mg/dl Est Cr Clr Drug Dosing ml/min Est GFR ( Amer) Est GFR (Non-Af Amer) BUN/Creatinine Ratio (10-20) Glucose (70-99) mg/dl Calcium (8.5-10.1) mg/dl Phosphorus (2.5-4.9) mg/dl Magnesium (1.8-2.4) mg/dl Ferritin (8-388) ng/ml Total Bilirubin (0.2-1) mg/dl Direct Bilirubin (0-0.2) mg/dl AST (15-37) U/L ALT (12-78) U/L Alkaline Phosphatase (45-117) U/L Lactate Dehydrogenase (87-241) U/L Total Creatine Kinase (39-308) U/L Troponin I (0-0.045) ng/ml C-Reactive Protein (0-0.29) mg/dl NT-Pro-B Natriuret Pep (0-900) pg/ml Total Protein (6.4-8.2) gm/dl Albumin (3.4-5.0) gm/dl Globulin (2.5-4.0) gm/dl Albumin/Globulin Ratio (0.9-2) Lipase (73-393) U/L Procalcitonin (0-0.5) ng/ml Hepatitis C Ab Screen Neg (Neg) Administered Medications Finasteride (Finasteride 5 Mg Tab) 5 mg PO DAILY IVA Stop: 12/15/20 15:59 Last Admin: 11/15/20 18:19 Dose: 5 mg Documented by: [id number] Ondansetron HCl (Ondansetron Inj 2 Mg/Ml 2 Ml Vial) 4 mg IV Q6H PRN PRN Reason: Nausea Stop: 12/15/20 15:06 Last Admin: 11/15/20 18:23 Dose: 4 mg Documented by: [id number] Pravastatin Sodium (Pravastatin Sod 10 Mg Tab) 10 mg PO DAILY IVA Stop: 12/15/20 15:59 Last Admin: 11/15/20 17:27 Dose: 10 mg Documented by: [id number] Discontinued Medications Albuterol (Ipratropium [place]/Albuterol Respimat Inh) 2 puffs INH NOW STA Stop: 11/15/20 08:16 Last Admin: 11/15/20 09:23 Dose: 2 puffs Documented by: [id number] Dexamethasone (Dexamethasone Sod Inj 10 Mg/Ml Vial) 6 mg IV NOW ONE Stop: 11/15/20 08:17 Last Admin: 11/15/20 09:22 Dose: 6 mg Documented by: [id number] Guaifenesin (Guaifenesin 600 Mg Tabcr) 600 mg PO NOW STA Stop: 11/15/20 08:16 Last Admin: 11/15/20 09:22 Dose: 600 mg Documented by: [id number] Sodium Chloride (Nss 1000ml) 1,000 mls @ 999 mls/hr IV .Q1H1M ONE Stop: 11/15/20 09:15 Last Infusion: 11/15/20 10:23 Dose: 0 mls/hr Documented by: [id number] Admin: 11/15/20 09:23 Dose: 999 mls/hr Documented by: [id number] Acetaminophen (Ofirmev) 1,000 mg in 100 mls @ 400 mls/hr IV NOW STA Stop: 11/15/20 08:29 Last Infusion: 11/15/20 09:37 Dose: 0 mls/hr Documented by: [id number] Admin: 11/15/20 09:22 Dose: 400 mls/hr Documented by: [id number] Potassium Phosphate 9 mmol/ (Sodium Chloride) 253 mls @ 170 mls/hr IV ONE ONE Stop: 11/15/20 11:59 Last Infusion: 11/15/20 13:40 Dose: 0 mls/hr Documented by: [id number] Admin: 11/15/20 10:40 Dose: 170 mls/hr Documented by: [id number] Potassium Phosphate (Potassium Phos 3 Mmol/1 Ml Infusion) 9 mmol IV NOW STA Stop: 11/15/20 09:52 Last Admin: 11/15/20 11:37 Dose: Not Given Documented by: [id number] Discharge Plan Visit Data Chief Complaint: Shortness of Breath/Dyspnea ED Provider: Javy Herron Discharge Problem: Pneumonia due to COVID-19 virus, Hypoxemia, Former smoker, Hypophosphatemia Patient Disposition: Admitted As Inpatient Discharge Instructions Interventions: ED Discharge Assessment Last Done: 11/15/20 14:01
[2020-11-15] MEDS ORDERED: POTASSIUM PHOS 3 MMOL/1 ML INFUSION IV STA (09:51)
[2020-11-15] MEDS ORDERED: POTASSIUM PHOSPHATE 9 MMOL in SODIUM CHLORIDE 0.9% 250 ML IV ONE (10:30)
[2020-11-15 10:37] LABS: D Dimer 1430 ug/L FEU (0-500)
--- NOTE | 2020-11-15 10:46 | History & Physical Report ---
Date of Service November 15, 2020 Assessment & Plan (1) Pneumonia due to COVID-19 virus: Mr. Sen is a 75 year old male with a history of Prediabetes, Hypertension, Hyperlipidemia, Obstructive Sleep Apnea, Renal Cancer, Lung Nodules, Thoracic Aortic Aneurysm, and Ossteoarthritis who presents to [facility] ER today with progressive SOB and Hypoxia secondary to SARS CoV 2. Patient developed a cough approximately 1 week ago, along with general achiness, loss of taste, decreased appetite, and loose stools. He was evaluated at [facility] last week and was diagnosed with pneumonia. He was started on Azithromycin, prednisone, and Tessalon Perles -- although he does not recall exactly when he started these medications. He does not feel these medication have been helping him. A COVID swab was done through [facility], and this test was Positive. His SpO2 was 87% when he came into the ER. Now on O2 at 5L/min via nasal cannula, and his O2 saturations are in the 92% to 94% range. Recommend the following: -- Admit to [facility], isolation precautions. -- Continue supplemental O2. -- IV Decadron 6 mg daily. -- Incentive spirometry. -- Continuous O2 monitoring. -- Supportive care. (2) Hypoxemia: -- Secondary to SARS CoV2 pneumonia. -- Management as outlined above. (3) Hypertension, essential: -- HR and BP are well controlled. -- Hold Diltiazem and Telmisartan-Hydrochlorothiazide today. (4) Hyperlipidemia: -- Continue Pravastatin 10 mg daily. (5) Obstructive sleep apnea: -- Continue CPAP. -- Patient does not know the settings. -- Set up through [facility] Patient. (6) Thoracic aortic aneurysm: -- Stable at 4.[address] Scans 02/19/2020 and 07/06/2019. -- Control BP/HR. History of Present Illness Chief Complaint: -- SOB. -- Cough. -- + SARS Cov-2. Primary Care Provider: Moni Pickett MD Mr. Sen is a 75 year old male with a history of Prediabetes, Hypertension, Hyperlipidemia, Obstructive Sleep Apnea, Renal Cancer, Lung Nodules, Thoracic Aortic Aneurysm, and Ossteoarthritis who presents to [facility] ER today with progressive SOB and Hypoxia. Patient developed a cough approximately 1 week ago, along general achiness, loss of taste, decreased appetite, and loose stools. As his symptoms were persisting, he went to [facility] last week and was diagnosed with pneumonia. He was started on Azithromycin, prednisone, and Tessalon Perles. A COVID swab was done through [facility], and this test was Positive. Patient notices the SOB predominantly following cough spells, but he now notices dyspnea with exertion. He denies any chest pain, heaviness, or tightness. His cough is non- productive. He denies any fever, chills, headache, or stiff neck. He denies any vomiting and his diarrhea resolved after taking Kaopectate. He denies any abdominal pain. He denies any dysuria, urinary urgency, or urinary frequency. Patient previously smoked but quit in the . He has 2 pulmonary nodules which are followed, and they have been stable in size suggesting a benign process. He denies any history of COPD. Allergies Allergy/AdvReac Type Severity Reaction Status Date / Time No Known Drug Allergies Allergy Verified 11/15/20 09:54 house dust mite AdvReac Verified 11/15/20 09:54 Home Medications Medication Instructions Recorded Confirmed Type pramipexole 0.5 mg tablet 0.5 mg PO QPM #90 tab 03/05/19 11/15/20 Rx aspirin 81 mg tablet 81 mg PO DAILY tab 06/26/19 11/15/20 History diltiazem HCl 120 mg 120 mg PO DAILY #90 cap 06/26/19 11/15/20 History capsule,extended release 24 hr fluticasone propionate 50 2 sprays INTRANASAL BID #48 gm 06/26/19 11/15/20 History mcg/actuation nasal spray,suspension telmisartan 80 0.5 tab PO DAILY #90 tab 06/26/19 11/15/20 History mg-hydrochlorothiazide 12.5 mg tablet cholecalciferol (vitamin D3) 125 5,000 units PO DAILY #30 cap 06/27/19 11/15/20 Rx mcg (5,000 unit) capsule omeprazole 20 mg capsule,delayed 40 mg PO DAILY #90 cap 06/27/19 11/15/20 Rx release tamsulosin 0.4 mg capsule 0.8 mg PO QPM #180 cap 04/26/20 11/15/20 Rx pravastatin 10 mg tablet 10 mg PO DAILY #90 tab 05/24/20 11/15/20 Rx benzonatate 100 mg PO [id number] 11/15/20 11/15/20 History finasteride 5 mg PO DAILY 11/15/20 11/15/20 History gabapentin 600 mg PO DAILY 11/15/20 11/15/20 History trazodone 100 mg PO QPM 11/15/20 11/15/20 History Past Med/Surg History Medical History (Updated 11/15/20 @ 20:58 by Javy Herron MD) Benign essential hypertension Enlarged prostate without lower urinary tract symptoms (luts) Former smoker Generalized osteoarthritis History of malignant neoplasm of kidney Hyperlipidemia Insomnia Internal hemorrhoids Memory loss Neuropathy of both feet Obstructive sleep apnea Peripheral neuropathy Postnasal drip Prediabetes Renal/ureteral disease Thoracic aortic aneurysm Tubular adenoma of colon Surgical History S/P carpal tunnel release S/P nasal septoplasty S/p nephrectomy S/P shoulder surgery S/P tonsillectomy and adenoidectomy Family History Mother Kidney malignancy Grandfather Prostate cancer Myocardial infarction Denies family history of Colon cancer Ovarian cancer Breast cancer Social History Smoking Status: Former smoker Smoking End Date: 1981; Hx Alcohol Use: Yes Alcohol type: beer Hx Substance Use: No Preferred Language: Nicaraguan Communication Ability: Effective Visual Impairment: No Limitations Hearing Ability: Normal [employer] Required: No Beliefs That Will Affect Care: None marital status: Current Living Situation: Spouse current occupational status: employed Other Information That Helps Us Care for You: No Feels Safe at Home: Yes Safety Concerns: Feels Safe At This Time Childhood Exposure to Second-Hand Smoke: Yes Dental Care, Regularly: Yes Physical Activity Frequency: 5-6 Times per Week Seatbelt Use: always Sunscreen Use: Yes Assistive Devices: Oxygen - Continuous Review of Systems Review of Systems: All systems reviewed & are unremarkable except as noted in Subjective Physical Exam Physical Exam: SpO2 93%. GENERAL: Patient in no acute distress. HEENT: Head is atraumatic, normocephalic. Sclerae anicteric. EOM's intact. Facies symmetric. No perioral cyanosis. Supplemental O2 at 5L/min via NC is in place. NECK: No JVD. Carotid upstrokes are + 2 bilaterally. No bruits are noted. CHEST/LUNGS: Scattered crackles throughout, with late expiratory wheezes on forced exhalation. CVS: S1 and S2 are regular without obvious murmurs, gallops, or rubs. PMI is nonpalpable. No lifts, heaves, or thrills. No abdominal aortic or renal bruits. ABDOMINAL EXAM: Bowel sounds are present. No masses, organomegaly, or tenderness. EXTREMITIES: No clubbing or cyanosis. No edema. Intact radial pulses bilaterally. NEUROLOGIC EXAM: Patient is awake, alert, and oriented. Pleasant and cooperative. Answers questions appropriately. Speech is clear. Normal movement in all 4 extremities. EKG 11/15/20: -- Sinus bradycardia at 57 bpm with an incomplete RBBB. -- No change compared to 07/06/2019. Results & Data Results & Data ([facility]) Vital Signs (Past 12 Hours) Vital Signs Temp Pulse Pulse Resp BP BP Pulse Ox 11/15/20 09:32 59 L 64 20 133/82 92 11/15/20 07:55 92 11/15/20 07:40 36.8 C 56 L 20 136/71 87 L Laboratory Results Laboratory Results - last 24 hr 11/15/20 11/15/20 11/15/20 08:05 08:05 08:05 WBC 7.58 RBC 5.34 Hgb 17.1 Hct 48.8 MCV 91.4 MCH 32.0 MCHC 35.0 RDW Std Deviation 42.2 RDW Coeff of Linda 12.6 Plt Count 137 MPV 10.9 H Immature Gran % (Auto) 0.4 Neut % (Auto) 72.1 Lymph % (Auto) 19.3 [place] % (Auto) 8.0 Eos % (Auto) 0.1 Baso % (Auto) 0.1 Neut # (Auto) 5.46 Lymph # (Auto) 1.46 [place] # (Auto) 0.61 H Eos # (Auto) 0.01 Baso # (Auto) 0.01 Immature Gran # (Auto) 0.03 H D-Dimer Sodium 140 Potassium 3.5 Chloride 104 Carbon Dioxide 30 Anion Gap 6.0 BUN 25 H Creatinine 1.37 Est Cr Clr Drug Dosing 57.4 Est GFR ( Amer) 58.9 Est GFR (Non-Af Amer) 50.8 BUN/Creatinine Ratio 18.1 Glucose 86 Calcium 9.3 Phosphorus 1.8 L Magnesium 2.4 Ferritin Total Bilirubin 0.9 Direct Bilirubin 0.2 AST 58 H ALT 50 Alkaline Phosphatase 55 Lactate Dehydrogenase Total Creatine Kinase Troponin I < 0.015 C-Reactive Protein NT-Pro-B Natriuret Pep 288 Total Protein 7.6 Albumin 3.4 Globulin 4.2 H Albumin/Globulin Ratio 0.8 L Lipase 112 Procalcitonin Influ A Molecular Assay Influ B Molecular Assay 11/15/20 11/15/20 11/15/20 08:05 08:05 08:05 WBC RBC Hgb Hct MCV MCH MCHC RDW Std Deviation RDW Coeff of Linda Plt Count MPV Immature Gran % (Auto) Neut % (Auto) Lymph % (Auto) [place] % (Auto) Eos % (Auto) Baso % (Auto) Neut # (Auto) Lymph # (Auto) Grant # (Auto) Eos # (Auto) Baso # (Auto) Immature Gran # (Auto) D-Dimer Sodium Potassium Chloride Carbon Dioxide Anion Gap BUN Creatinine Est Cr Clr Drug Dosing Est GFR ( Amer) Est GFR (Non-Af Amer) BUN/Creatinine Ratio Glucose Calcium Phosphorus Magnesium Ferritin 870.0 H Total Bilirubin Direct Bilirubin AST ALT Alkaline Phosphatase Lactate Dehydrogenase 547 H Total Creatine Kinase 459 H Troponin I C-Reactive Protein 4.10 H NT-Pro-B Natriuret Pep Total Protein Albumin Globulin Albumin/Globulin Ratio Lipase Procalcitonin Pending Influ A Molecular Assay Influ B Molecular Assay 11/15/20 11/15/20 08:21 10:41 WBC RBC Hgb Hct MCV MCH MCHC RDW Std Deviation RDW Coeff of Linda Plt Count MPV Immature Gran % (Auto) Neut % (Auto) Lymph % (Auto) [place] % (Auto) Eos % (Auto) Baso % (Auto) Neut # (Auto) Lymph # (Auto) [place] # (Auto) Eos # (Auto) Baso # (Auto) Immature Gran # (Auto) D-Dimer 1430 H* Sodium Potassium Chloride Carbon Dioxide Anion Gap BUN Creatinine Est Cr Clr Drug Dosing Est GFR ( Amer) Est GFR (Non-Af Amer) BUN/Creatinine Ratio Glucose Calcium Phosphorus Magnesium Ferritin Total Bilirubin Direct Bilirubin AST ALT Alkaline Phosphatase Lactate Dehydrogenase Total Creatine Kinase Troponin I C-Reactive Protein NT-Pro-B Natriuret Pep Total Protein Albumin Globulin Albumin/Globulin Ratio Lipase Procalcitonin Influ A Molecular Assay Pending Influ B Molecular Assay Pending Diagnostic Findings CXR 11/15/2020: FINDINGS: The heart is the upper limits of normal in size. There is aortic tortuosity/ectasia. There are multiple old left-sided rib fractures. There is bilateral mucosal thickening, a finding which appears new. Diagnostic considerations include mild pulmonary vascular congestion versus interstitial inflammatory/infectious process. Clinical and radiographic follow-up is recommended.[ IMPRESSION: -- Interval development of mild interstitial thickening. -- Likely diagnostic considerations include mild pulmonary vascular congestion vs interstitial infectious/inflammatory process. -- Clinical and radiographic follow-up is recommended. Medications Administered Potassium Phosphate 9 mmol/ (Sodium Chloride) 253 mls @ 170 mls/hr IV ONE ONE Stop: 11/15/20 11:59 Last Admin: 11/15/20 10:40 Dose: 170 mls/hr Documented by: [id number] Discontinued Medications Albuterol (Ipratropium [place]/Albuterol Respimat Inh) 2 puffs INH NOW STA Stop: 11/15/20 08:16 Last Admin: 11/15/20 09:23 Dose: 2 puffs Documented by: [id number] Dexamethasone (Dexamethasone Sod Inj 10 Mg/Ml Vial) 6 mg IV NOW ONE Stop: 11/15/20 08:17 Last Admin: 11/15/20 09:22 Dose: 6 mg Documented by: [id number] Guaifenesin (Guaifenesin 600 Mg Tabcr) 600 mg PO NOW STA Stop: 11/15/20 08:16 Last Admin: 11/15/20 09:22 Dose: 600 mg Documented by: [id number] Sodium Chloride (Nss 1000ml) 1,000 mls @ 999 mls/hr IV .Q1H1M ONE Stop: 11/15/20 09:15 Last Infusion: 11/15/20 10:23 Dose: 0 mls/hr Documented by: [id number] Admin: 11/15/20 09:23 Dose: 999 mls/hr Documented by: [id number] Acetaminophen (Ofirmev) 1,000 mg in 100 mls @ 400 mls/hr IV NOW STA Stop: 11/15/20 08:29 Last Infusion: 11/15/20 09:37 Dose: 0 mls/hr Documented by: [id number] Admin: 11/15/20 09:22 Dose: 400 mls/hr Documented by: [id number] Code Status & VTE Plan Code Status Full Code VTE Prophylaxis Plan VTE Prophylaxis will be ordered: Yes Supervising Physician Co-Signing Physician Notes I personally saw and examined the patient. I verified all miranda points and agree with ASHWIN Davis with the following exceptions and/or additions: 75-year-old male presents to the ER with 1 week shortness of breath. COVID-19 positive on November 11 (4 days ago) at [facility]. Treated with prednisone 40 mg p.o. and Z-James. Continued hypoxia with O2 sats less than 90% and worsening shortness of breath prompted ER visit today. O/E No respiratory distress, Chest CTAB (poor inspiratory effort), no wheezing, HS1+2, RRR, no murmurs, abdomen SNT, BS +ve. A/P COVID-19 pneumonia - already had 5 days of prednisone therefore will continue 5 days of dexamethasone 6mg IV. DVT Prophylaxis - elevated d-dimer in setting of COVID-19 therefore will give higher dose Lovenox 40mg SQ BID PG Care Time/CCT Total # of Minutes Spent Total Time Spent with Patient: Total time spent is greater than 50% in coordination of care (as documented) at patient's floor/unit and/or counseling patient:35 Coding Level of Care Code 06245 Initial Inpt Care Lvl 3 Diagnoses Pneumonia due to COVID-19 virus U07.1; J12.82 Hypoxemia R09.02 Hypertension, essential I10 Hyperlipidemia E78.5 Obstructive sleep apnea G47.33 Thoracic aortic aneurysm I71.2
[2020-11-15 10:54] LABS: C Reactive Protein 4.1 mg/dl (0-0.29)
[2020-11-15 11:35] LABS: Influenza A virus by PCR Negative (Negative); Influenza B virus by PCR Negative (Negative)
[2020-11-15] MEDS ORDERED: POLYETHYLENE (MIRALAX) 17 GM PACK PO PRN (15:07)
[2020-11-15] MEDS ORDERED: ONDANSETRON INJ 2 MG/ML 2 ML VIAL IV PRN (15:07)
[2020-11-15] MEDS ORDERED: ACETAMINOPHEN 325 MG TAB PO PRN (15:07)
[2020-11-15] MEDS ORDERED: ALUMINUM/MAGNESIUM SUSP 30 ML UDC PO PRN (15:07)
[2020-11-15] MEDS: PRAVASTATIN SOD 10 MG TAB PO SCH (17:27)
[2020-11-15] MEDS: FINASTERIDE 5 MG TAB PO SCH (18:19)
[2020-11-15] MEDS: traZODone HCL 100 MG TAB PO SCH (21:10)
[2020-11-15] MEDS: ENOXAPARIN INJ 40 MG/0.4 ML SYR SQ SCH (21:10)
[2020-11-15] MEDS: PRAMIPEXOLE DIHYDROCHLO 0.5 MG TAB PO SCH (21:10)
[2020-11-15] MEDS: TAMSULOSIN HCL 0.4 MG CAP PO SCH (21:10)
--- NOTE | 2020-11-16 05:57 | Electrocardiogram Report ---
Test Reason : Blood Pressure : / mmHG Vent. Rate : 057 BPM Atrial Rate : 057 BPM P-R Int : 160 ms QRS Dur : 100 ms QT Int : 428 ms P-R-T Axes : 044 -17 024 degrees QTc Int : 416 ms Sinus bradycardia Incomplete right bundle branch block Borderline ECG When compared with ECG of 06-JUL-2019 11:51, No significant change was found Confirmed by Jonas Reyes ([id number]) on 11/16/2020 5:57:05 AM Referred By: REFERRED SELF Confirmed By:Jonas Reyes
[2020-11-16 06:37] LABS: Basophils # (auto) 0.01 K/uL (0-0.2); Basophils % (auto) 0.2 %; Hematocrit (blood only) 45.6 % (42-52); Hemoglobin 15.7 g/dL (14.0-18.0); Immature Granulocytes # (auto) 0.02 K/uL (0.00-0.02); Immature Granulocytes % (auto) 0.3 %; Lymphocytes # (auto) 1.19 K/uL (1.2-3.4); Lymphocytes % (auto) 19.5 %; Mean Corpuscular Hemoglobin 31.5 pg (25-34); Mean Corpuscular Hgb Conc 34.4 g/dL (32-36); Mean Corpuscular Volume 91.6 fL (80-100); Mean Platelet Volume 10.9 fL (7.4-10.4); Monocytes # (auto) 0.51 K/uL (0.11-0.59); Monocytes % (auto) 8.4 %; Neutrophils # (auto) 4.36 K/uL (1.4-6.5); Neutrophils % (auto) 71.6 %; Platelet Count 145 K/uL (130-400); RDW Coefficient of Variation 12.5 % (11.5-14.5); RDW Standard Deviation 41.9 fL (36.4-46.3); Red Blood Count 4.98 M/uL (4.7-6.1); White Blood Count 6.09 K/uL (4.8-10.8)
[2020-11-16 07:20] LABS: Creatinine Clr Calc Pharmacy 63.1 ml/min; Est GFR (African American) 67.1; Est GFR (Non-African American) 57.9; Potassium 4.6 mmol/L (3.5-5.1)
[2020-11-16] MEDS: GABAPENTIN 600 MG TAB PO SCH (08:18)
[2020-11-16] MEDS: PANTOprazole 40 MG TAB PO SCH (08:18)
[2020-11-16] MEDS: ENOXAPARIN INJ 40 MG/0.4 ML SYR SQ SCH ×2 (08:18→21:01)
[2020-11-16] MEDS: dexAMETHasone 6 MG in SYRINGE 0 ML IV SCH (08:18)
[2020-11-16] MEDS: PRAVASTATIN SOD 10 MG TAB PO SCH (08:19)
[2020-11-16] MEDS: CHOLECALCIFEROL 1,000 UNITS 25 MCG TAB PO SCH (08:19)
[2020-11-16] MEDS: ASPIRIN 81 MG ECTAB PO SCH (08:19)
[2020-11-16] MEDS: FINASTERIDE 5 MG TAB PO SCH (08:19)
[2020-11-16] MEDS ORDERED: DEXAMETHASONE SOD INJ 4 MG/ML VIAL IV SCH (09:00)
--- NOTE | 2020-11-16 12:47 | Hospitalist Progress Note ---
Date of Service November 16, 2020 Assessment & Plan (1) Pneumonia due to COVID-19 virus: responding well to dexamethasone 6mg IV daily, continue for 10 days, day 2 today titrate down on oxygen as tolerated, stable on 4L today making sputum with cough, will add flutter valve to better mobilize sputum incentive spirometry no role for Remdesivir or plasma procalcitonin negative, no antibiotics encourage him to eat what he can, take this one day at a time likely here until the weekend but might get better faster (2) Hypoxemia: -- Secondary to SARS CoV2 pneumonia. stable on 4L today titrate as tolerated (3) Hypertension, essential: -- HR and BP are well controlled. -- Hold Diltiazem and Telmisartan-Hydrochlorothiazide BP 116/70 (4) Hyperlipidemia: -- Continue Pravastatin 10 mg daily. (5) Obstructive sleep apnea: -- Continue CPAP. -- Patient does not know the settings. -- Set up through [facility]. (6) Thoracic aortic aneurysm: -- Stable at 4.[address] Scans 02/19/2020 and 07/06/2019. -- Control BP/HR. Admission and Anticipated Discharge Date Admission Date: November 15, 2020 Subjective patient doing better, said that as soon as he got oxygen he felt better discussed that he was probably hypoxic for a few days on and off, no wonder he would feel better says he was sick since last Sunday, 9 days ago malaise, cough, dyspnea, poor appetite, change in taste says his is now sick as well, awaiting test results at home reviewed chart reviewed labs he was on 7L NC earlier today, down to 4L now he quickly desaturates with any movement but then recovers Review of Systems Review of Systems: All systems reviewed & are unremarkable except as noted in Subjective Constitutional: + fatigue and + weakness; no fever, no chills and no sweats Respiratory: + cough, + dyspnea and + sputum production Cardiovascular: no chest pain and no edema Gastrointestinal: no abdominal pain, no nausea, no vomiting, no constipation and no diarrhea/loose stools Physical Exam Constitutional: WD/WN, vitals as above Eyes: PERRL, conjunctivae normal, anicteric sclerae Neck: trachea midline, no thyromegaly Respiratory: normal respiratory effort, lungs clear to auscultation Cardiovascular: RRR, no murmur, no edema Gastrointestinal (Abdomen): normal bowel sounds, soft, nontender, no hepatosplenomegaly Musculoskeletal: no cyanosis or clubbing, extremities motor strength 5/5 Skin: no rashes, warm and dry Neurologic: patellar DTR's 2+ bilat, sensation intact and PERRL, EOMI, accommodation nl, no face palsy, no dysarthria Psychiatric: A+Ox3, euthymic affect Lymphatic: no cervical or axillary lymphadenopathy Results & Data Results & Data ([facility]) Vital Signs (Past 12 Hours) Vital Signs Temp Pulse Resp BP Pulse Ox 11/16/20 11:28 36.7 C 47 L 20 111/62 93 11/16/20 08:30 30 H 90 11/16/20 07:47 37.0 C 45 L 20 141/74 H 95 11/16/20 06:48 36.7 C 56 L 20 152/78 H 96 Laboratory Results Laboratory Results - last 24 hr 11/15/20 11/16/20 11/16/20 08:05 05:26 05:26 WBC 6.09 RBC 4.98 Hgb 15.7 Hct 45.6 MCV 91.6 MCH 31.5 MCHC 34.4 RDW Std Deviation 41.9 RDW Coeff of Linda 12.5 Plt Count 145 MPV 10.9 H Immature Gran % (Auto) 0.3 Neut % (Auto) 71.6 Lymph % (Auto) 19.5 [place] % (Auto) 8.4 Eos % (Auto) 0.0 Baso % (Auto) 0.2 Neut # (Auto) 4.36 Lymph # (Auto) 1.19 L [place] # (Auto) 0.51 Eos # (Auto) 0.00 Baso # (Auto) 0.01 Immature Gran # (Auto) 0.02 Sodium 142 Potassium 4.6 D Chloride 107 Carbon Dioxide 28 Anion Gap 7.0 BUN 22 H Creatinine 1.23 Est Cr Clr Drug Dosing 63.1 Est GFR ( Amer) 67.1 Est GFR (Non-Af Amer) 57.9 BUN/Creatinine Ratio 18.0 Glucose 104 H Calcium 9.0 Hepatitis C Ab Screen Neg Medications Administered Current Inpatient Medications Acetaminophen (Acetaminophen 325 Mg Tab) 650 mg PO Q4H PRN PRN Reason: pain/fever Stop: 12/15/20 15:06 Al Hydrox/Mg Hydrox/Simethicone (Aluminum/Magnesium Susp 30 Ml Udc) 30 ml PO Q6H PRN PRN Reason: Dyspepsia Stop: 12/15/20 15:06 Aspirin (Aspirin 81 Mg Ectab) 81 mg PO DAILY [facility] Stop: 12/16/20 08:59 Last Admin: 11/16/20 08:19 Dose: 81 mg Documented by: Enoxaparin Sodium (Enoxaparin Inj 40 Mg/0.4 Ml Syr) 40 mg SQ BID IVA Stop: 12/15/20 20:59 Last Admin: 11/16/20 08:18 Dose: 40 mg Documented by: Finasteride (Finasteride 5 Mg Tab) 5 mg PO DAILY IVA Stop: 12/15/20 15:59 Last Admin: 11/16/20 08:19 Dose: 5 mg Documented by: Gabapentin (Gabapentin 600 Mg Tab) 600 mg PO DAILY [facility] Stop: 12/16/20 08:59 Last Admin: 11/16/20 08:18 Dose: 600 mg Documented by: Dexamethasone Sodium Phosphate (6 mg/ Syringe) 1.5 mls @ 1 mls/min IV QAM [facility] Stop: 11/21/20 08:59 Last Admin: 11/16/20 08:18 Dose: 1 mls/min Documented by: Ondansetron HCl (Ondansetron Inj 2 Mg/Ml 2 Ml Vial) 4 mg IV Q6H PRN PRN Reason: Nausea Stop: 12/15/20 15:06 Last Admin: 11/15/20 18:23 Dose: 4 mg Documented by: Pantoprazole Sodium (Pantoprazole 40 Mg Tab) 40 mg PO DAILY [facility] Stop: 12/16/20 08:59 Last Admin: 11/16/20 08:18 Dose: 40 mg Documented by: Polyethylene Glycol (Polyethylene (Miralax) 17 Gm Pack) 17 gm PO DAILY PRN PRN Reason: Constipation Stop: 12/15/20 15:06 Pramipexole Dihydrochloride (Pramipexole Dihydrochlo 0.5 Mg Tab) 0.5 mg PO QPM [facility] Stop: 12/15/20 20:59 Last Admin: 11/15/20 21:10 Dose: 0.5 mg Documented by: Pravastatin Sodium (Pravastatin Sod 10 Mg Tab) 10 mg PO DAILY [facility] Stop: 12/15/20 15:59 Last Admin: 11/16/20 08:19 Dose: 10 mg Documented by: Tamsulosin HCl (Tamsulosin Hcl 0.4 Mg Cap) 0.8 mg PO QPM IVA Stop: 12/15/20 20:59 Last Admin: 11/15/20 21:10 Dose: 0.8 mg Documented by: Trazodone HCl (Trazodone Hcl 100 Mg Tab) 100 mg PO QPM IVA Stop: 12/15/20 20:59 Last Admin: 11/15/20 21:10 Dose: 100 mg Documented by: Vitamin D (Cholecalciferol 1,000 Units 25 Mcg Tab) 5,000 units PO DAILY IVA Stop: 12/16/20 08:59 Last Admin: 11/16/20 08:19 Dose: 5,000 units Documented by: PG Care Time/CCT Total # of Minutes Spent Total Time Spent with Patient: Total time spent is greater than 50% in coordination of care (as documented) at patient's floor/unit and/or counseling patient: Coding Level of Care Code 23296 Subseq Hosp Care Lvl 2 Diagnoses Pneumonia due to COVID-19 virus U07.1; J12.82 Hypoxemia R09.02 Hypertension, essential I10 Hyperlipidemia E78.5 Obstructive sleep apnea G47.33 Thoracic aortic aneurysm I71.2
[2020-11-16] MEDS: traZODone HCL 100 MG TAB PO SCH (21:01)
[2020-11-16] MEDS: PRAMIPEXOLE DIHYDROCHLO 0.5 MG TAB PO SCH (21:01)
[2020-11-16] MEDS: TAMSULOSIN HCL 0.4 MG CAP PO SCH (21:01)
[2020-11-17] MEDS: dexAMETHasone 6 MG in SYRINGE 0 ML IV SCH (08:29)
[2020-11-17] MEDS: ENOXAPARIN INJ 40 MG/0.4 ML SYR SQ SCH ×2 (08:30→22:07)
[2020-11-17] MEDS: FINASTERIDE 5 MG TAB PO SCH (08:30)
[2020-11-17] MEDS: ASPIRIN 81 MG ECTAB PO SCH (08:31)
[2020-11-17] MEDS: CHOLECALCIFEROL 1,000 UNITS 25 MCG TAB PO SCH (08:32)
[2020-11-17] MEDS: GABAPENTIN 600 MG TAB PO SCH (08:33)
[2020-11-17] MEDS: PANTOprazole 40 MG TAB PO SCH (08:33)
[2020-11-17] MEDS: PRAVASTATIN SOD 10 MG TAB PO SCH (08:33)
[2020-11-17] MEDS ORDERED: SODIUM CHLORIDE 0.65% NA SOLN 45 ML (OCEAN) PRN (11:04)
--- NOTE | 2020-11-17 11:10 | Hospitalist Progress Note ---
Date of Service November 17, 2020 Assessment & Plan (1) Pneumonia due to COVID-19 virus: responding well to dexamethasone 6mg IV daily, continue for 10 days, day 3 today titrate down on oxygen as tolerated, stable on 6L today, saturations 90%, no distress at all making sputum with cough, will add flutter valve to better mobilize sputum incentive spirometry, able to take deeper breaths no role for Remdesivir or plasma procalcitonin negative, but with productive cough, will add Zithromax 500mg daily for atypical coverage, treat 5 days encourage him to eat what he can, intake is improving likely here until the weekend but might get better faster (2) Hypoxemia: -- Secondary to SARS CoV2 pneumonia. stable on 6L today titrate as tolerated using incentive spirometer and flutter valve as ordered very motivated to get better (3) Hypertension, essential: -- HR and BP are well controlled. -- Hold Diltiazem and Telmisartan-Hydrochlorothiazide BP 109/68 (4) Hyperlipidemia: -- Continue Pravastatin 10 mg daily. (5) Obstructive sleep apnea: -- Continue CPAP. -- Patient does not know the settings. -- Set up through [facility]. (6) Thoracic aortic aneurysm: -- Stable at 4.[address] Scans 02/19/2020 and 07/06/2019. -- Control BP/HR. (7) Epistaxis: brief, due to dry mucous membranes from oxygen add nasal spray q1H at the bedside Admission and Anticipated Discharge Date Admission Date: November 15, 2020 Subjective patient says he is feeling well, maybe a little better than yesterday coughing up more sputum, occasionally dark, like dry blood has a brief bloody nose last night, discussed that his nose is dry from oxygen, will get him nasal spray no labs today he is on 6L NC today, no distress, utilizing incentive spirometer a few times an hour and flutter valve a few times a day able to take deeper breaths eating a little more today, trying to push intake no fever, no chills, no chest pain, no GI symptoms + cough and dyspnea Review of Systems Review of Systems: All systems reviewed & are unremarkable except as noted in Subjective Physical Exam Constitutional: WD/WN, vitals as above Eyes: PERRL, conjunctivae normal, anicteric sclerae Neck: trachea midline, no thyromegaly Respiratory: normal respiratory effort, lungs clear to auscultation Cardiovascular: RRR, no murmur, no edema Gastrointestinal (Abdomen): normal bowel sounds, soft, nontender, no hepatosplenomegaly Musculoskeletal: no cyanosis or clubbing, extremities motor strength 5/5 Skin: no rashes, warm and dry Neurologic: patellar DTR's 2+ bilat, sensation intact and PERRL, EOMI, accommodation nl, no face palsy, no dysarthria Psychiatric: A+Ox3, euthymic affect Lymphatic: no cervical or axillary lymphadenopathy Results & Data Results & Data ([facility]) Vital Signs (Past 12 Hours) Vital Signs Temp Pulse Resp BP Pulse Ox 11/17/20 08:28 36.5 C 52 L 20 109/68 92 11/16/20 23:57 36.6 C 48 L 20 120/77 92 11/16/20 23:56 86 L Medications Administered Current Inpatient Medications Acetaminophen (Acetaminophen 325 Mg Tab) 650 mg PO Q4H PRN PRN Reason: pain/fever Stop: 12/15/20 15:06 Al Hydrox/Mg Hydrox/Simethicone (Aluminum/Magnesium Susp 30 Ml Udc) 30 ml PO Q6H PRN PRN Reason: Dyspepsia Stop: 12/15/20 15:06 Aspirin (Aspirin 81 Mg Ectab) 81 mg PO DAILY IVA Stop: 12/16/20 08:59 Last Admin: 11/17/20 08:31 Dose: 81 mg Documented by: Azithromycin (Azithromycin 250 Mg Tab) 500 mg PO QAM [facility] Stop: 11/24/20 11:14 Enoxaparin Sodium (Enoxaparin Inj 40 Mg/0.4 Ml Syr) 40 mg SQ BID IVA Stop: 12/15/20 20:59 Last Admin: 11/17/20 08:30 Dose: 40 mg Documented by: Finasteride (Finasteride 5 Mg Tab) 5 mg PO DAILY [facility] Stop: 12/15/20 15:59 Last Admin: 11/17/20 08:30 Dose: 5 mg Documented by: Gabapentin (Gabapentin 600 Mg Tab) 600 mg PO DAILY IVA Stop: 12/16/20 08:59 Last Admin: 11/17/20 08:33 Dose: 600 mg Documented by: Dexamethasone Sodium Phosphate (6 mg/ Syringe) 1.5 mls @ 1 mls/min IV QAM IVA Stop: 11/21/20 08:59 Last Admin: 11/17/20 08:29 Dose: 1 mls/min Documented by: Ondansetron HCl (Ondansetron Inj 2 Mg/Ml 2 Ml Vial) 4 mg IV Q6H PRN PRN Reason: Nausea Stop: 12/15/20 15:06 Last Admin: 11/15/20 18:23 Dose: 4 mg Documented by: Pantoprazole Sodium (Pantoprazole 40 Mg Tab) 40 mg PO DAILY IVA Stop: 12/16/20 08:59 Last Admin: 11/17/20 08:33 Dose: 40 mg Documented by: Polyethylene Glycol (Polyethylene (Miralax) 17 Gm Pack) 17 gm PO DAILY PRN PRN Reason: Constipation Stop: 12/15/20 15:06 Pramipexole Dihydrochloride (Pramipexole Dihydrochlo 0.5 Mg Tab) 0.5 mg PO QPM IVA Stop: 12/15/20 20:59 Last Admin: 11/16/20 21:01 Dose: 0.5 mg Documented by: Pravastatin Sodium (Pravastatin Sod 10 Mg Tab) 10 mg PO DAILY IVA Stop: 12/15/20 15:59 Last Admin: 11/17/20 08:33 Dose: 10 mg Documented by: Sodium Chloride (Sodium Chloride 0.65% Na Soln 45 Ml ([place])) 1 sprays NA Q1H PRN PRN Reason: dry nose Stop: 12/17/20 11:03 Tamsulosin HCl (Tamsulosin Hcl 0.4 Mg Cap) 0.8 mg PO QPM IVA Stop: 12/15/20 20:59 Last Admin: 11/16/20 21:01 Dose: 0.8 mg Documented by: Trazodone HCl (Trazodone Hcl 100 Mg Tab) 100 mg PO QPM IVA Stop: 12/15/20 20:59 Last Admin: 11/16/20 21:01 Dose: 100 mg Documented by: Vitamin D (Cholecalciferol 1,000 Units 25 Mcg Tab) 5,000 units PO DAILY IVA Stop: 12/16/20 08:59 Last Admin: 11/17/20 08:32 Dose: 5,000 units Documented by: PG Care Time/CCT Total # of Minutes Spent Total Time Spent with Patient: Total time spent is greater than 50% in coordination of care (as documented) at patient's floor/unit and/or counseling patient: Coding Level of Care Code 39539 Subseq Hosp Care Lvl 2 Diagnoses Pneumonia due to COVID-19 virus U07.1; J12.82 Hypoxemia R09.02 Hypertension, essential I10 Hyperlipidemia E78.5 Obstructive sleep apnea G47.33 Thoracic aortic aneurysm I71.2 Epistaxis R04.0
[2020-11-17] MEDS: AZITHROMYCIN 250 MG TAB PO SCH (12:59)
[2020-11-17] MEDS: TAMSULOSIN HCL 0.4 MG CAP PO SCH (22:05)
[2020-11-17] MEDS: traZODone HCL 100 MG TAB PO SCH (22:06)
[2020-11-17] MEDS: PRAMIPEXOLE DIHYDROCHLO 0.5 MG TAB PO SCH (22:06)
[2020-11-18 06:55] LABS: Hematocrit (blood only) 45.5 % (42-52); Mean Corpuscular Hemoglobin 31.8 pg (25-34); Mean Corpuscular Hgb Conc 35.2 g/dL (32-36); Mean Corpuscular Volume 90.5 fL (80-100); Mean Platelet Volume 11.2 fL (7.4-10.4); Platelet Count 218 K/uL (130-400); RDW Coefficient of Variation 12.5 % (11.5-14.5); RDW Standard Deviation 41.3 fL (36.4-46.3); Red Blood Count 5.03 M/uL (4.7-6.1); White Blood Count 8.86 K/uL (4.8-10.8)
[2020-11-18 07:22] LABS: BUN Creatinine Ratio 20.5 (10-20); Calcium 8.6 mg/dl (8.5-10.1); Creatinine Clr Calc Pharmacy 59.7 ml/min; Est GFR (African American) 62.7; Est GFR (Non-African American) 54.1; Magnesium 2.2 mg/dl (1.8-2.4); Potassium 4.1 mmol/L (3.5-5.1)
[2020-11-18] MEDS: ASPIRIN 81 MG ECTAB PO SCH (09:33)
[2020-11-18] MEDS: GABAPENTIN 600 MG TAB PO SCH (09:34)
[2020-11-18] MEDS: PANTOprazole 40 MG TAB PO SCH (09:34)
[2020-11-18] MEDS: PRAVASTATIN SOD 10 MG TAB PO SCH (09:35)
[2020-11-18] MEDS: FINASTERIDE 5 MG TAB PO SCH (09:36)
[2020-11-18] MEDS: CHOLECALCIFEROL 1,000 UNITS 25 MCG TAB PO SCH (09:36)
[2020-11-18] MEDS: AZITHROMYCIN 250 MG TAB PO SCH (10:04)
[2020-11-18] MEDS: ENOXAPARIN INJ 40 MG/0.4 ML SYR SQ SCH ×2 (10:05→21:01)
[2020-11-18] MEDS: dexAMETHasone 6 MG in SYRINGE 0 ML IV SCH (10:06)
--- NOTE | 2020-11-18 14:21 | Hospitalist Progress Note ---
Date of Service November 18, 2020 Assessment & Plan (1) Pneumonia due to COVID-19 virus: responding well to dexamethasone 6mg IV daily, continue for 10 days, day 4 today titrate down on oxygen as tolerated, stable on 4-6L today, saturations 92%, no distress at all making sputum with cough, continue flutter valve to better mobilize sputum incentive spirometry, able to take deeper breaths, pulling tidal volume of 2500mL today no role for Remdesivir or plasma procalcitonin negative, but with productive cough, will add Zithromax 500mg daily for atypical coverage, treat 5 days encourage him to eat what he can, intake is improving likely here through the weekend add Mucinex to loosen up sputum (2) Hypoxemia: -- Secondary to SARS CoV2 pneumonia. stable on 6L today titrate as tolerated using incentive spirometer and flutter valve as ordered very motivated to get better (3) Hypertension, essential: -- HR and BP are well controlled. -- Hold Diltiazem and Telmisartan-Hydrochlorothiazide BP 103/69 (4) Hyperlipidemia: -- Continue Pravastatin 10 mg daily. (5) Obstructive sleep apnea: -- Continue CPAP. -- Patient does not know the settings. -- Set up through [facility]. (6) Thoracic aortic aneurysm: -- Stable at 4.[address] Scans 02/19/2020 and 07/06/2019. -- Control BP/HR. (7) Epistaxis: brief, due to dry mucous membranes from oxygen add nasal spray q1H at the bedside Admission and Anticipated Discharge Date Admission Date: November 15, 2020 Subjective patient doing well, still ranging between 4 and 6L, no distress able to take deep breaths, more than 2500mL on incentive spirometer cough is decreasing in frequency, bringing up some yellow phlegm occasionally no fever/chills, no chest pain, no diarrhea CBC and BMP normal today he has concerns about being here, says his is sick at home told him he will likely be here through the weekend Review of Systems Review of Systems: All systems reviewed & are unremarkable except as noted in Subjective Physical Exam Constitutional: WD/WN, vitals as above Eyes: PERRL, conjunctivae normal, anicteric sclerae Neck: trachea midline, no thyromegaly Respiratory: normal respiratory effort, lungs clear to auscultation Cardiovascular: RRR, no murmur, no edema Gastrointestinal (Abdomen): normal bowel sounds, soft, nontender, no hepatosplenomegaly Musculoskeletal: no cyanosis or clubbing, extremities motor strength 5/5 Skin: no rashes, warm and dry Neurologic: patellar DTR's 2+ bilat, sensation intact and PERRL, EOMI, accommodation nl, no face palsy, no dysarthria Psychiatric: A+Ox3, euthymic affect Lymphatic: no cervical or axillary lymphadenopathy Results & Data Results & Data ([facility]) Vital Signs (Past 12 Hours) Vital Signs Temp Pulse Resp BP Pulse Ox 11/18/20 09:31 36.4 C L 51 L 18 103/69 92 Laboratory Results Laboratory Results - last 24 hr 11/18/20 11/18/20 06:27 06:27 WBC 8.86 RBC 5.03 Hgb 16.0 Hct 45.5 MCV 90.5 MCH 31.8 MCHC 35.2 RDW Std Deviation 41.3 RDW Coeff of Linda 12.5 Plt Count 218 MPV 11.2 H Sodium 141 Potassium 4.1 Chloride 108 H Carbon Dioxide 24 Anion Gap 9.0 BUN 27 H Creatinine 1.30 Est Cr Clr Drug Dosing 59.7 Est GFR ( Amer) 62.7 Est GFR (Non-Af Amer) 54.1 BUN/Creatinine Ratio 20.5 H Glucose 87 Calcium 8.6 Magnesium 2.2 Medications Administered Current Inpatient Medications Acetaminophen (Acetaminophen 325 Mg Tab) 650 mg PO Q4H PRN PRN Reason: pain/fever Stop: 12/15/20 15:06 Al Hydrox/Mg Hydrox/Simethicone (Aluminum/Magnesium Susp 30 Ml Udc) 30 ml PO Q6H PRN PRN Reason: Dyspepsia Stop: 12/15/20 15:06 Aspirin (Aspirin 81 Mg Ectab) 81 mg PO DAILY [facility] Stop: 12/16/20 08:59 Last Admin: 11/18/20 09:33 Dose: 81 mg Documented by: Azithromycin (Azithromycin 250 Mg Tab) 500 mg PO QAM [facility]; Protocol Stop: 11/24/20 11:29 Last Admin: 11/18/20 10:04 Dose: 500 mg Documented by: Enoxaparin Sodium (Enoxaparin Inj 40 Mg/0.4 Ml Syr) 40 mg SQ BID [facility] Stop: 12/15/20 20:59 Last Admin: 11/18/20 10:05 Dose: 40 mg Documented by: Finasteride (Finasteride 5 Mg Tab) 5 mg PO DAILY IVA Stop: 12/15/20 15:59 Last Admin: 11/18/20 09:36 Dose: 5 mg Documented by: Gabapentin (Gabapentin 600 Mg Tab) 600 mg PO DAILY IVA Stop: 12/16/20 08:59 Last Admin: 11/18/20 09:34 Dose: 600 mg Documented by: Guaifenesin (Guaifenesin 600 Mg Tabcr) 600 mg PO Q12 IVA Stop: 12/18/20 14:01 Dexamethasone Sodium Phosphate (6 mg/ Syringe) 1.5 mls @ 1 mls/min IV QAM IVA Stop: 11/21/20 08:59 Last Admin: 11/18/20 10:06 Dose: 1 mls/min Documented by: Ondansetron HCl (Ondansetron Inj 2 Mg/Ml 2 Ml Vial) 4 mg IV Q6H PRN PRN Reason: Nausea Stop: 12/15/20 15:06 Last Admin: 11/15/20 18:23 Dose: 4 mg Documented by: Pantoprazole Sodium (Pantoprazole 40 Mg Tab) 40 mg PO DAILY IVA Stop: 12/16/20 08:59 Last Admin: 11/18/20 09:34 Dose: 40 mg Documented by: Polyethylene Glycol (Polyethylene (Miralax) 17 Gm Pack) 17 gm PO DAILY PRN PRN Reason: Constipation Stop: 12/15/20 15:06 Pramipexole Dihydrochloride (Pramipexole Dihydrochlo 0.5 Mg Tab) 0.5 mg PO QPM IVA Stop: 12/15/20 20:59 Last Admin: 11/17/20 22:06 Dose: 0.5 mg Documented by: Pravastatin Sodium (Pravastatin Sod 10 Mg Tab) 10 mg PO DAILY IVA Stop: 12/15/20 15:59 Last Admin: 11/18/20 09:35 Dose: 10 mg Documented by: Sodium Chloride (Sodium Chloride 0.65% Na Soln 45 Ml ([place])) 1 sprays NA Q1H PRN PRN Reason: dry nose Stop: 12/17/20 11:03 Last Admin: 11/17/20 13:00 Dose: 1 sprays Documented by: Tamsulosin HCl (Tamsulosin Hcl 0.4 Mg Cap) 0.8 mg PO QPM IVA Stop: 12/15/20 20:59 Last Admin: 11/17/20 22:05 Dose: 0.8 mg Documented by: Trazodone HCl (Trazodone Hcl 100 Mg Tab) 100 mg PO QPM IVA Stop: 12/15/20 20:59 Last Admin: 11/17/20 22:06 Dose: 100 mg Documented by: Vitamin D (Cholecalciferol 1,000 Units 25 Mcg Tab) 5,000 units PO DAILY [facility] Stop: 12/16/20 08:59 Last Admin: 11/18/20 09:36 Dose: 5,000 units Documented by: PG Care Time/CCT Total # of Minutes Spent Total Time Spent with Patient: Total time spent is greater than 50% in coordination of care (as documented) at patient's floor/unit and/or counseling patient: Coding Level of Care Code 89595 Subseq Hosp Care Lvl 2 Diagnoses Pneumonia due to COVID-19 virus U07.1; J12.82 Hypoxemia R09.02 Hypertension, essential I10 Hyperlipidemia E78.5 Obstructive sleep apnea G47.33 Thoracic aortic aneurysm I71.2 Epistaxis R04.0
[2020-11-18] MEDS: guaiFENesin 600 MG TABCR PO SCH ×2 (14:29→21:03)
[2020-11-18] MEDS: PRAMIPEXOLE DIHYDROCHLO 0.5 MG TAB PO SCH (21:01)
[2020-11-18] MEDS: TAMSULOSIN HCL 0.4 MG CAP PO SCH (21:02)
[2020-11-18] MEDS: traZODone HCL 100 MG TAB PO SCH (21:03)
[2020-11-19] MEDS: dexAMETHasone 6 MG in SYRINGE 0 ML IV SCH (07:43)
[2020-11-19] MEDS: ASPIRIN 81 MG ECTAB PO SCH (07:43)
[2020-11-19] MEDS: GABAPENTIN 600 MG TAB PO SCH (07:43)
[2020-11-19] MEDS: PRAVASTATIN SOD 10 MG TAB PO SCH (07:44)
[2020-11-19] MEDS: FINASTERIDE 5 MG TAB PO SCH (07:44)
[2020-11-19] MEDS: CHOLECALCIFEROL 1,000 UNITS 25 MCG TAB PO SCH (07:45)
[2020-11-19] MEDS: AZITHROMYCIN 250 MG TAB PO SCH (07:46)
[2020-11-19] MEDS: PANTOprazole 40 MG TAB PO SCH (07:48)
[2020-11-19] MEDS: guaiFENesin 600 MG TABCR PO SCH ×2 (07:49→20:43)
[2020-11-19] MEDS: ENOXAPARIN INJ 40 MG/0.4 ML SYR SQ SCH ×2 (07:49→20:42)
[2020-11-19] MEDS ORDERED: LOPERAMIDE HCL 2 MG CAP PO PRN (10:59)
[2020-11-19] MEDS ORDERED: SODIUM CHLORIDE 0.9% 1000ML 500 ML IV ONE (11:01)
--- NOTE | 2020-11-19 11:56 | Hospitalist Progress Note ---
Date of Service November 19, 2020 Assessment & Plan (1) Pneumonia due to COVID-19 virus: responding well to dexamethasone 6mg IV daily, continue for 10 days, day 5 today titrate down on oxygen as tolerated, stable on 3L today, saturations 91%, no distress at all making sputum with cough, continue flutter valve to better mobilize sputum incentive spirometry, able to take deeper breaths, pulling tidal volume of 2500mL today no role for Remdesivir or plasma procalcitonin negative, stop Zithromax today encourage him to eat what he can, intake is improving has some diarrhea today, looks a little dry, will give NSS 500cc bolus (2) Hypoxemia: -- Secondary to SARS CoV2 pneumonia. stable on 3L today titrate as tolerated using incentive spirometer and flutter valve as ordered very motivated to get better (3) Hypertension, essential: -- HR and BP are well controlled. -- Hold Diltiazem and Telmisartan-Hydrochlorothiazide BP 100/54 will give NSS 500cc bolus today (4) Hyperlipidemia: -- Continue Pravastatin 10 mg daily. (5) Obstructive sleep apnea: -- Continue CPAP. -- Patient does not know the settings. -- Set up through [facility]. (6) Thoracic aortic aneurysm: -- Stable at 4.[address] Scans 02/19/2020 and 07/06/2019. -- Control BP/HR. (7) Epistaxis: brief, due to dry mucous membranes from oxygen add nasal spray q1H at the bedside give mupirocin bid to left nostril Admission and Anticipated Discharge Date Admission Date: November 15, 2020 Subjective patient having some diarrhea this morning, feeling a little more worn down breathing is better, down to 3L, coughing a lot less no fever/chills, no sweats, no chest pain, no vomiting vitals stable, no labs today updated his over the phone she has COVID, doing okay, told her to keep checking her saturations Review of Systems Review of Systems: All systems reviewed & are unremarkable except as noted in Subjective Constitutional: + fatigue and + weakness; no fever Respiratory: + cough and + dyspnea on exertion; no dyspnea and no sputum production Cardiovascular: no chest pain and no edema Gastrointestinal: + diarrhea/loose stools; no abdominal pain, no nausea, no vomiting and no constipation Physical Exam Constitutional: WD/WN, vitals as above Eyes: PERRL, conjunctivae normal, anicteric sclerae Neck: trachea midline, no thyromegaly Respiratory: normal respiratory effort, lungs clear to auscultation Cardiovascular: RRR, no murmur, no edema Gastrointestinal (Abdomen): normal bowel sounds, soft, nontender, no hepatosplenomegaly Musculoskeletal: no cyanosis or clubbing, extremities motor strength 5/5 Skin: no rashes, warm and dry Neurologic: patellar DTR's 2+ bilat, sensation intact and PERRL, EOMI, accommodation nl, no face palsy, no dysarthria Psychiatric: A+Ox3, euthymic affect Lymphatic: no cervical or axillary lymphadenopathy Results & Data Results & Data ([facility]) Vital Signs (Past 12 Hours) Vital Signs Temp Pulse Resp BP Pulse Ox 11/19/20 08:00 36.6 C 53 L 14 100/54 L 91 11/19/20 03:13 36.5 C 48 L 18 113/73 90 Medications Administered Current Inpatient Medications Acetaminophen (Acetaminophen 325 Mg Tab) 650 mg PO Q4H PRN PRN Reason: pain/fever Stop: 12/15/20 15:06 Al Hydrox/Mg Hydrox/Simethicone (Aluminum/Magnesium Susp 30 Ml Udc) 30 ml PO Q6H PRN PRN Reason: Dyspepsia Stop: 12/15/20 15:06 Aspirin (Aspirin 81 Mg Ectab) 81 mg PO DAILY [facility] Stop: 12/16/20 08:59 Last Admin: 11/19/20 07:43 Dose: 81 mg Documented by: Enoxaparin Sodium (Enoxaparin Inj 40 Mg/0.4 Ml Syr) 40 mg SQ BID IVA Stop: 12/15/20 20:59 Last Admin: 11/19/20 07:49 Dose: 40 mg Documented by: Finasteride (Finasteride 5 Mg Tab) 5 mg PO DAILY [facility] Stop: 12/15/20 15:59 Last Admin: 11/19/20 07:44 Dose: 5 mg Documented by: Gabapentin (Gabapentin 600 Mg Tab) 600 mg PO DAILY [facility] Stop: 12/16/20 08:59 Last Admin: 11/19/20 07:43 Dose: 600 mg Documented by: Guaifenesin (Guaifenesin 600 Mg Tabcr) 600 mg PO Q12 IVA Stop: 12/18/20 14:01 Last Admin: 11/19/20 07:49 Dose: 600 mg Documented by: Dexamethasone Sodium Phosphate (6 mg/ Syringe) 1.5 mls @ 1 mls/min IV QAM IVA Stop: 11/21/20 08:59 Last Admin: 11/19/20 07:43 Dose: 1 mls/min Documented by: Loperamide HCl (Loperamide Hcl 2 Mg Cap) 2 mg PO Q6 PRN PRN Reason: Diarrhea Stop: 12/19/20 10:58 Mupirocin (Mupirocin 2% Oint 22 Gm Tube) 1 appln INTNAS Q12 IVA Stop: 12/19/20 20:59 Ondansetron HCl (Ondansetron Inj 2 Mg/Ml 2 Ml Vial) 4 mg IV Q6H PRN PRN Reason: Nausea Stop: 12/15/20 15:06 Last Admin: 11/15/20 18:23 Dose: 4 mg Documented by: Pantoprazole Sodium (Pantoprazole 40 Mg Tab) 40 mg PO DAILY IVA Stop: 12/16/20 08:59 Last Admin: 11/19/20 07:48 Dose: 40 mg Documented by: Polyethylene Glycol (Polyethylene (Miralax) 17 Gm Pack) 17 gm PO DAILY PRN PRN Reason: Constipation Stop: 12/15/20 15:06 Pramipexole Dihydrochloride (Pramipexole Dihydrochlo 0.5 Mg Tab) 0.5 mg PO QPM IVA Stop: 12/15/20 20:59 Last Admin: 11/18/20 21:01 Dose: 0.5 mg Documented by: Pravastatin Sodium (Pravastatin Sod 10 Mg Tab) 10 mg PO DAILY IVA Stop: 12/15/20 15:59 Last Admin: 11/19/20 07:44 Dose: 10 mg Documented by: Sodium Chloride (Sodium Chloride 0.65% Na Soln 45 Ml ([place])) 1 sprays NA Q1H PRN PRN Reason: dry nose Stop: 12/17/20 11:03 Last Admin: 11/17/20 13:00 Dose: 1 sprays Documented by: Tamsulosin HCl (Tamsulosin Hcl 0.4 Mg Cap) 0.8 mg PO QPM IVA Stop: 12/15/20 20:59 Last Admin: 11/18/20 21:02 Dose: 0.8 mg Documented by: Trazodone HCl (Trazodone Hcl 100 Mg Tab) 100 mg PO QPM IVA Stop: 12/15/20 20:59 Last Admin: 11/18/20 21:03 Dose: 100 mg Documented by: Vitamin D (Cholecalciferol 1,000 Units 25 Mcg Tab) 5,000 units PO DAILY IVA Stop: 12/16/20 08:59 Last Admin: 11/19/20 07:45 Dose: 5,000 units Documented by: PG Care Time/CCT Total # of Minutes Spent Total Time Spent with Patient: Total time spent is greater than 50% in coordination of care (as documented) at patient's floor/unit and/or counseling patient: Coding Level of Care Code 10747 Subseq Hosp Care Lvl 3 Diagnoses Pneumonia due to COVID-19 virus U07.1; J12.82 Hypoxemia R09.02 Hypertension, essential I10 Hyperlipidemia E78.5 Obstructive sleep apnea G47.33 Thoracic aortic aneurysm I71.2 Epistaxis R04.0
[2020-11-19] MEDS ORDERED: OXYMETAZOLINE 0.05% 30 ML BTL NAE ONE ×2 (13:51)
[2020-11-19] MEDS ORDERED: OXYMETAZOLINE 0.05% 30 ML BTL PRN (13:51)
[2020-11-19] MEDS: MUPIROCIN 2% OINT 22 GM TUBE INTNAS SCH ×2 (14:01→20:42)
[2020-11-19] MEDS: TAMSULOSIN HCL 0.4 MG CAP PO SCH (20:43)
[2020-11-19] MEDS: traZODone HCL 100 MG TAB PO SCH (20:43)
[2020-11-19] MEDS: PRAMIPEXOLE DIHYDROCHLO 0.5 MG TAB PO SCH (20:43)
[2020-11-19] MEDS ORDERED: MUPIROCIN 2% OINT 22 GM TUBE INTNAS SCH (21:00)
[2020-11-20] MEDS: MUPIROCIN 2% OINT 22 GM TUBE INTNAS SCH ×2 (09:11→20:59)
[2020-11-20] MEDS: ENOXAPARIN INJ 40 MG/0.4 ML SYR SQ SCH ×3 (09:12→21:04)
[2020-11-20] MEDS: ASPIRIN 81 MG ECTAB PO SCH (09:12)
[2020-11-20] MEDS: dexAMETHasone 6 MG in SYRINGE 0 ML IV SCH (09:12)
[2020-11-20] MEDS: guaiFENesin 600 MG TABCR PO SCH ×2 (09:13→20:58)
[2020-11-20] MEDS: FINASTERIDE 5 MG TAB PO SCH (09:14)
[2020-11-20] MEDS: PRAVASTATIN SOD 10 MG TAB PO SCH (09:14)
[2020-11-20] MEDS: GABAPENTIN 600 MG TAB PO SCH (09:14)
[2020-11-20] MEDS: PANTOprazole 40 MG TAB PO SCH (09:15)
[2020-11-20] MEDS: CHOLECALCIFEROL 1,000 UNITS 25 MCG TAB PO SCH (09:16)
--- NOTE | 2020-11-20 13:36 | Hospitalist Progress Note ---
Date of Service November 20, 2020 Assessment & Plan (1) Pneumonia due to COVID-19 virus: responding well to dexamethasone 6mg IV daily, continue for 10 days, day 6 today titrate down on oxygen as tolerated, stable again on 3L today, saturations 91%, no distress at all making sputum with cough, continue flutter valve to better mobilize sputum incentive spirometry, able to take deeper breaths, pulling tidal volume of 2500mL today no role for Remdesivir or plasma procalcitonin negative, stop Zithromax encourage him to eat what he can, intake is improving no longer has loose stools patient really wants to go home, stable on low flow all week, no distress will get two step tomorrow and try to arrange to go home with oxygen (2) Hypoxemia: -- Secondary to SARS CoV2 pneumonia. remains stable on 3L titrate as tolerated using incentive spirometer and flutter valve as ordered very motivated to get better plan for two step tomorrow (3) Hypertension, essential: -- HR and BP are well controlled. -- Hold Diltiazem and Telmisartan-Hydrochlorothiazide BP 116/69 (4) Hyperlipidemia: -- Continue Pravastatin 10 mg daily. (5) Obstructive sleep apnea: -- Continue CPAP. -- Patient does not know the settings. -- Set up through [facility]. (6) Thoracic aortic aneurysm: -- Stable at 4.[address] Scans 02/19/2020 and 07/06/2019. -- Control BP/HR. (7) Epistaxis: brief, due to dry mucous membranes from oxygen add nasal spray q1H at the bedside give mupirocin bid to left nostril Afrin yesterday no more bleeding Admission and Anticipated Discharge Date Admission Date: November 15, 2020 Subjective patient sitting up in a chair, feels well on 3L, wants to know when he can get out of the hospital discussed two step tomorrow since he is getting better, he agrees with the plan eating well, no more diarrhea, no nausea, coughing a lot less no labs today epistaxis from left nostril resolved, post nasal drip with some old blood and he coughs it up Review of Systems Review of Systems: All systems reviewed & are unremarkable except as noted in Subjective Physical Exam Constitutional: WD/WN, vitals as above Eyes: PERRL, conjunctivae normal, anicteric sclerae Neck: trachea midline, no thyromegaly Respiratory: normal respiratory effort, lungs clear to auscultation Cardiovascular: RRR, no murmur, no edema Gastrointestinal (Abdomen): normal bowel sounds, soft, nontender, no hepatospl enomegaly Musculoskeletal: no cyanosis or clubbing, extremities motor strength 5/5 Skin: no rashes, warm and dry Neurologic: patellar DTR's 2+ bilat, sensation intact and PERRL, EOMI, accommodation nl, no face palsy, no dysarthria Psychiatric: A+Ox3, euthymic affect Lymphatic: no cervical or axillary lymphadenopathy Results & Data Results & Data ([facility]) Vital Signs (Past 12 Hours) Vital Signs Temp Pulse Resp BP Pulse Ox 11/20/20 08:50 36.5 C 48 L 18 116/69 92 Medications Administered Current Inpatient Medications Acetaminophen (Acetaminophen 325 Mg Tab) 650 mg PO Q4H PRN PRN Reason: pain/fever Stop: 12/15/20 15:06 Al Hydrox/Mg Hydrox/Simethicone (Aluminum/Magnesium Susp 30 Ml Udc) 30 ml PO Q6H PRN PRN Reason: Dyspepsia Stop: 12/15/20 15:06 Aspirin (Aspirin 81 Mg Ectab) 81 mg PO DAILY IVA Stop: 12/16/20 08:59 Last Admin: 11/20/20 09:12 Dose: 81 mg Documented by: Enoxaparin Sodium (Enoxaparin Inj 40 Mg/0.4 Ml Syr) 40 mg SQ BID IVA Stop: 12/15/20 20:59 Last Admin: 11/20/20 09:12 Dose: 40 mg Documented by: Finasteride (Finasteride 5 Mg Tab) 5 mg PO DAILY IVA Stop: 12/15/20 15:59 Last Admin: 11/20/20 09:14 Dose: 5 mg Documented by: Gabapentin (Gabapentin 600 Mg Tab) 600 mg PO DAILY [facility] Stop: 12/16/20 08:59 Last Admin: 11/20/20 09:14 Dose: 600 mg Documented by: Guaifenesin (Guaifenesin 600 Mg Tabcr) 600 mg PO Q12 IVA Stop: 12/18/20 14:01 Last Admin: 11/20/20 09:13 Dose: 600 mg Documented by: Dexamethasone Sodium Phosphate (6 mg/ Syringe) 1.5 mls @ 1 mls/min IV QAM IVA Stop: 11/21/20 08:59 Last Admin: 11/20/20 09:12 Dose: 1 mls/min Documented by: Loperamide HCl (Loperamide Hcl 2 Mg Cap) 2 mg PO Q6 PRN PRN Reason: Diarrhea Stop: 12/19/20 10:58 Last Admin: 11/19/20 12:24 Dose: 2 mg Documented by: Mupirocin (Mupirocin 2% Oint 22 Gm Tube) 1 appln INTNAS Q12 IVA Stop: 12/19/20 13:54 Last Admin: 11/20/20 09:11 Dose: 1 appln Documented by: Ondansetron HCl (Ondansetron Inj 2 Mg/Ml 2 Ml Vial) 4 mg IV Q6H PRN PRN Reason: Nausea Stop: 12/15/20 15:06 Last Admin: 11/15/20 18:23 Dose: 4 mg Documented by: Oxymetazoline HCl (Oxymetazoline 0.05% 30 Ml Btl) 1 sprays NA PRN PRN PRN Reason: nose bleed Stop: 12/19/20 13:50 Pantoprazole Sodium (Pantoprazole 40 Mg Tab) 40 mg PO DAILY IVA Stop: 12/16/20 08:59 Last Admin: 11/20/20 09:15 Dose: 40 mg Documented by: Polyethylene Glycol (Polyethylene (Miralax) 17 Gm Pack) 17 gm PO DAILY PRN PRN Reason: Constipation Stop: 12/15/20 15:06 Pramipexole Dihydrochloride (Pramipexole Dihydrochlo 0.5 Mg Tab) 0.5 mg PO QPM IVA Stop: 12/15/20 20:59 Last Admin: 11/19/20 20:43 Dose: 0.5 mg Documented by: Pravastatin Sodium (Pravastatin Sod 10 Mg Tab) 10 mg PO DAILY IVA Stop: 12/15/20 15:59 Last Admin: 11/20/20 09:14 Dose: 10 mg Documented by: Sodium Chloride (Sodium Chloride 0.65% Na Soln 45 Ml ([place])) 1 sprays NA Q1H PRN PRN Reason: dry nose Stop: 12/17/20 11:03 Last Admin: 11/17/20 13:00 Dose: 1 sprays Documented by: Tamsulosin HCl (Tamsulosin Hcl 0.4 Mg Cap) 0.8 mg PO QPM IVA Stop: 12/15/20 20:59 Last Admin: 11/19/20 20:43 Dose: 0.8 mg Documented by: Trazodone HCl (Trazodone Hcl 100 Mg Tab) 100 mg PO QPM IVA Stop: 12/15/20 20:59 Last Admin: 11/19/20 20:43 Dose: 100 mg Documented by: Vitamin D (Cholecalciferol 1,000 Units 25 Mcg Tab) 5,000 units PO DAILY IVA Stop: 12/16/20 08:59 Last Admin: 11/20/20 09:16 Dose: 5,000 units Documented by: PG Care Time/CCT Total # of Minutes Spent Total Time Spent with Patient: Total time spent is greater than 50% in coordination of care (as documented) at patient's floor/unit and/or counseling patient: Coding Level of Care Code 07853 Subseq Hosp Care Lvl 2 Diagnoses Pneumonia due to COVID-19 virus U07.1; J12.82 Hypoxemia R09.02 Hypertension, essential I10 Hyperlipidemia E78.5 Obstructive sleep apnea G47.33 Thoracic aortic aneurysm I71.2 Epistaxis R04.0
[2020-11-20] MEDS: TAMSULOSIN HCL 0.4 MG CAP PO SCH (20:58)
[2020-11-20] MEDS: traZODone HCL 100 MG TAB PO SCH (20:58)
[2020-11-20] MEDS: PRAMIPEXOLE DIHYDROCHLO 0.5 MG TAB PO SCH (20:58)
[2020-11-21] MEDS: PRAVASTATIN SOD 10 MG TAB PO SCH (09:02)
[2020-11-21] MEDS: PANTOprazole 40 MG TAB PO SCH (09:02)
[2020-11-21] MEDS: CHOLECALCIFEROL 1,000 UNITS 25 MCG TAB PO SCH (09:02)
[2020-11-21] MEDS: ASPIRIN 81 MG ECTAB PO SCH (09:02)
[2020-11-21] MEDS: GABAPENTIN 600 MG TAB PO SCH (09:02)
[2020-11-21] MEDS: FINASTERIDE 5 MG TAB PO SCH (09:02)
[2020-11-21] MEDS: guaiFENesin 600 MG TABCR PO SCH (09:02)
[2020-11-21] MEDS: ENOXAPARIN INJ 40 MG/0.4 ML SYR SQ SCH (09:03)
[2020-11-21] MEDS: MUPIROCIN 2% OINT 22 GM TUBE INTNAS SCH (09:03)
--- NOTE | 2020-11-21 10:41 | Discharge Summary ---
Date of Service November 21, 2020 Admission HPI Per Admitting Provider Mr. Sen is a 75 year old male with a history of Prediabetes, Hypertension, Hyperlipidemia, Obstructive Sleep Apnea, Renal Cancer, Lung Nodules, Thoracic Aortic Aneurysm, and Ossteoarthritis who presents to [facility] ER today with progressive SOB and Hypoxia. Patient developed a cough approximately 1 week ago, along general achiness, loss of taste, decreased appetite, and loose stools. As his symptoms were persist ing, he went to [employer] last week and was diagnosed with pneumonia. He was started on Azithromycin, prednisone, and Tessalon Perles. A COVID swab was done through [facility], and this test was Positive. Patient notices the SOB predominantly following cough spells, but he now notices dyspnea with exertion. He denies any chest pain, heaviness, or tightness. His cough is non-productive. He denies any fever, chills, headache, or stiff neck. He denies any vomiting and his diarrhea resolved after taking Kaopectate. He denies any abdominal pain. He denies any dysuria, urinary urgency, or urinary frequency. Patient previously smoked but quit in the . He has 2 pulmonary nodules which are followed, and they have been stable in size suggesting a benign process. He denies any history of COPD. Principal Diagnosis COVID 19 pneumonia Discharge Exam Constitutional WD/WN, vitals as above Eyes PERRL, conjunctivae normal, anicteric sclerae Neck trachea midline, no thyromegaly Respiratory normal respiratory effort, lungs clear to auscultation Cardiovascular RRR, no murmur, no edema Gastrointestinal (Abdomen) normal bowel sounds, soft, nontender, no hepatosplenomegaly Musculoskeletal no cyanosis or clubbing, extremities motor strength 5/5 Skin no rashes, warm and dry Neurologic patellar DTR's 2+ bilat, sensation intact and PERRL, EOMI, accommodation nl, no face palsy, no dysarthria Psychiatric A+Ox3, euthymic affect Lymphatic no cervical or axillary lymphadenopathy Discharge Data Allergies Allergy/AdvReac Type Severity Reaction Status Date / Time No Known Drug Allergies Allergy Verified 11/15/20 09:54 house dust mite AdvReac Verified 11/15/20 09:54 Consultations 11/15/20 09:51 ED Decision to Admit Stat Hospital Course (1) Pneumonia due to COVID-19 virus: responded well to dexamethasone 6mg IV daily, completed 7 days in hospital, continue for three days after discharge titrated down to room air at rest, 2L on exertion making sputum with cough, continue flutter valve to better mobilize sputum incentive spirometry, able to take deeper breaths, pulling tidal volume of 2500mL no role for Remdesivir or plasma procalcitonin negative, stopped Zithromax encourage him to eat what he can, intake is improving no longer has loose stools patient will be discharged to home today, follow up with PCP (2) Hypoxemia: -- Secondary to SARS CoV2 pneumonia. down to room air today, saturations 91%, needed 2L on exertion, will arrange for home oxygen using incentive spirometer and flutter valve as ordered very motivated to get better (3) Hypertension, essential: -- HR and BP are well controlled. -- have held Diltiazem and Telmisartan-Hydrochlorothiazide entire admission continue to hold on discharge, follow up with PCP, can resume if BP becomes elevated again BP 106/65 today (4) Hyperlipidemia: -- Continue Pravastatin 10 mg daily. (5) Obstructive sleep apnea: -- Continue CPAP. -- Set up through [facility]. (6) Thoracic aortic aneurysm: -- Stable at 4.[address] Scans 02/19/2020 and 07/06/2019. -- Control BP/HR. (7) Epistaxis: brief, due to dry mucous membranes from oxygen add nasal spray q1H at the bedside give mupirocin bid to left nostril Afrin once no more bleeding Total Time Total Time Spent Total Time Spent (In Minutes): 35 minutes Total Time Includes: Examination of the Patient, Discharge Planning, Medication Reconciliation and Other (discussed with pillowcase maker) Discharge Plan Discharge Items Patient Disposition: Home - Self-Care Reason For Visit: COVID-19 PNEUMONIA, HYPOXIA Discharge Diagnosis: COVID 19 pneumonia, hypoxia Condition on Discharge: Good Goals: complete course of dexamethasone use oxygen as prescribed, slowly taper off Activity: Resume your previous activity Non-emergency contact: Primary Care Provider Call non-emergency contact if: you have any medication questions and your symptoms worsen Follow-up/Referrals: Moni Pickett MD [Primary Care Provider] - (one week) Diet: Regular Addtl Attending Provider Instructions: Medications: - DEXAMETHASONE: 6mg daily for three more days, this will complete 10 days total of treatment - DILTIAZEM and TELMISARTAN/HCTZ: these blood pressure medications have been held entire admission, BP stable off of them, would continue to hold COVID 19 pneumonia, hypoxia responded well to dexamethasone, down to room air today and 2L on exertion completed 7 days of dexamethasone, need three more days stay well nourished and well hydrated keep nose moist with saline but should not have issues with nose bleeds now that you are off oxygen around the clock stay in isolation 10 days from onset of symptoms, you are safe to be with your since she has COVID Pending Studies at Discharge: No Stand-Alone Forms: My [facility], Work/School Release (Inpt), Smoking Cessation Medications and DC Order Prescriptions: New dexamethasone 4 mg tablet 6 mg PO DAILY 3 Days Qty: 5 RF: 0 Continued pramipexole 0.5 mg tablet 0.5 mg PO QPM Qty: 90 RF: 3 cholecalciferol (vitamin D3) 5,000 unit capsule 5,000 units PO DAILY Qty: 30 RF: 0 tamsulosin 0.4 mg capsule 0.8 mg PO QPM Qty: 180 RF: 3 pravastatin 10 mg tablet 10 mg PO DAILY Qty: 90 RF: 3 aspirin 81 mg tablet 81 mg PO DAILY RF: 0 fluticasone propionate 50 mcg/actuation spray,suspension 2 sprays intranasal BID Qty: 48 RF: 0 omeprazole 20 mg capsule,delayed release(DR/EC) 40 mg PO DAILY Qty: 90 RF: 3 gabapentin 600 mg tablet 600 mg PO DAILY RF: 0 benzonatate 100 mg capsule 100 mg PO [id number] RF: 0 finasteride 5 mg tablet 5 mg PO DAILY RF: 0 trazodone 100 mg tablet 100 mg PO QPM RF: 0 Discontinued diltiazem HCl 120 mg capsule,extended release 24hr 120 mg PO DAILY Qty: 90 RF: 0 telmisartan-hydrochlorothiazid 80-12.5 mg tablet 0.5 tab PO DAILY Qty: 90 RF: 0 Discharge Orders: Discharge Order (Routine); Ordered 11/21/20 Ordered By: Miguel Ángel Rodriguez/Other Patient Handouts: COVID-19 Home Care, Using Oxygen Safely, Discharge Instructions ... Admission Data Admit Date/Time: 11/15/20 10:35 Attending Provider: Miguel Ángel Maurer Admit Provider: Zack Chacon Primary Care Provider: Moni Pickett Other Providers: Zack Hoffman Coding Level of Care Code D/C Day Management >30 mins Diagnoses Pneumonia due to COVID-19 virus U07.1; J12.82 Hypoxemia R09.02 Hypertension, essential I10 Hyperlipidemia E78.5 Obstructive sleep apnea G47.33 Thoracic aortic aneurysm I71.2 Epistaxis R04.0
== END 2020-11-21 13:05 | disposition home or self-care (01) | DRG 177 ==
LOC: EDSEX → ED 07:40 → SUATTDRO 10:35 → 2E 10:35 → 3W 11-16 16:58

== ENCOUNTER 2023-08-11 10:20 | Observation (INO) ==
[2023-08-11] MEDS ORDERED: KETOROLAC TROMETHAMINE 15 MG/ML VIAL IV STA (10:31)
[2023-08-11] MEDS ORDERED: ONDANSETRON INJ 2 MG/ML 2 ML VIAL IV STA (10:31)
[2023-08-11] MEDS ORDERED: ACETAMINOPHEN 1,000 MG/100 ML VIAL IV STA (10:31)
[2023-08-11] MEDS ORDERED: SODIUM CHLORIDE 0.9% 500 ML IV STA (10:31)
[2023-08-11] MEDS ORDERED: cefTRIAXone SODIUM 2,000 MG/50 ML BAG IV STA (10:33)
--- NOTE | 2023-08-11 10:33 | Emergency Department Note ---
Impression & Plan Pain in left testicle, Acute orchitis, Leukocytosis, Acute UTI ED Provider Note NAME: HAZEL LOCKETT AGE: 78 SEX: M : 1945 ARRIVES VIA: Ambulance INFORMANT: [Patient] ED PROVIDER(S): [Romario Coleman MD] CHIEF COMPLAINT: Scrotal pain HISTORY OF PRESENT ILLNESS: The patient is a 78-year-old male who has had 3 days of scrotal pain and some swelling. He believes both testicles are swollen. He is able to urinate without difficulty and has not noticed any difficulty with his stream. There has been no fever, chest pain or shortness of breath. No increased leg swelling. The patient denies trauma to the testicles. He has never had an issue like this before. He is not diabetic. PMHx/PSHx/Social Hx: See Below PHYSICAL EXAM: GENERAL: Patient is in no acute distress. HEENT: No acute trauma, normocephalic atraumatic, mucous membranes moist, no nasal congestion. NECK: No stridor, no adenopathy, no meningismus, trachea is midline. LUNGS: Clear to auscultation bilaterally, no wheeze, no rhonchi, breath sounds equal. HEART: Without murmurs gallops or rubs, regular rate and rhythm. ABDOMEN: Soft, nontender, no peritonitis. EXTREMITIES: No cyanosis, full range of motion of all the joints without pain or difficulty. Mild to moderate bilateral pedal edema. NEUROLOGIC: Oriented x 3, no acute motor or sensory deficits, no focal weakness. SKIN: No jaundice, no diaphoresis. Groin: The patient has significant swelling and discomfort of the left testicle/epididymis. The scrotum is erythematous. The right testicle appears normal in size and seems nontender. DIFFERENTIAL DIAGNOSIS: Orchitis, epididymitis, cellulitis, hernia, testicular torsion, necrotizing fasciitis, among others. EMERGENCY DEPARTMENT PROCEDURES: MEDICAL DECISION MAKING: There is a significant leukocytosis at 24,000, this would be consistent with infection. There is a normal hemoglobin and platelet count. No renal failure or significant electrolyte abnormality. No concerning liver enzyme elevation. No evidence for pancreatitis. Lactic acid level was not elevated making severe sepsis less likely. Urinalysis was consistent with infection. Testicular ultrasound shows epididymoorchitis on the left. On exam, the patient's left hemiscrotum was tender and the left hemiscrotum did appear swollen. The patient received IV ceftriaxone as antibiotic coverage. He was given a 500 cc saline bolus. He received IV Zofran for nausea, IV Toradol for pain. He received IV Tylenol. I did speak with urology, Dr. Mcfarland. Patient does not require any acute urologic intervention. Hospitalization with IV antibiotic therapy was indicated. I did speak with the patient, I spoke with case management, the on-call hospitalist was consulted. Prior/Outside records/notes reviewed: EMS notes. Imaging/x-ray results per my interpretation: Chronic Medical/Social conditions affecting care: Chronic sleep apnea. Care/Management discussed with: Case management, the on-call hospitalistDr. Crocker. Urology-Dr. Mcfarland. Level of care consideration(s): After review of the information above and other included data: --I believe the patient requires escalation of care to admission DISPOSITION: Admission with urology consult Past Med/Surg History Medical History (Updated 08/11/23 @ 16:11 by Romario Coleman MD) Epistaxis Hypophosphatemia Benign essential hypertension Enlarged prostate without lower urinary tract symptoms (luts) Former smoker Generalized osteoarthritis History of malignant neoplasm of kidney Hyperlipidemia Insomnia Internal hemorrhoids Memory loss Obstructive sleep apnea Peripheral neuropathy Postnasal drip Prediabetes Renal/ureteral disease Thoracic aortic aneurysm Tubular adenoma of colon Neuropathy of both feet Surgical History S/P tonsillectomy and adenoidectomy S/P shoulder surgery S/P nasal septoplasty S/P carpal tunnel release S/p nephrectomy Family History Mother Kidney malignancy Grandfather Prostate cancer Myocardial infarction Denies family history of Colon cancer Ovarian cancer Breast cancer Social History Smoking Status: Former smoker Tobacco Type: Cigarettes Hx Alcohol Use: Yes Alcohol type: beer Hx Substance Use: No Preferred Language: Vietnamese Communication Ability: Effective Visual Impairment: No Limitations Hearing Ability: Normal Nurse Transition Required: No Beliefs That Will Affect Care: None marital status: Current Living Situation: Spouse current occupational status: employed Feels Safe at Home: Yes Childhood Exposure to Second-Hand Smoke: Yes Diet: regular Dental Care, Regularly: Yes Physical Activity Frequency: 5-6 Times per Week Seatbelt Use: always Sunscreen Use: Yes Assistive Devices: Oxygen - Continuous Allergies Allergies Allergy/AdvReac Type Severity Reaction Status Date / Time No Known Drug Allergies Allergy Verified 04/20/23 09:21 house dust mite AdvReac Verified 04/20/23 09:21 Home Meds Home Medications Medication Instructions Recorded Confirmed fluticasone propionate 50 2 sprays intranasal BID #48 grams 06/26/19 08/11/23 mcg/actuation nasal spray,suspension (Flonase Allergy Relief) finasteride 5 mg tablet (Proscar) 5 mg PO QAM 11/15/20 08/11/23 trazodone 100 mg tablet 100 mg PO HS sleep 11/15/20 08/11/23 gabapentin 600 mg tablet 600 mg PO .COMPLEX 03/10/21 08/11/23 (Neurontin) aspirin 81 mg tablet,delayed 81 mg PO QAM 05/24/21 08/11/23 release ([place] Low Dose Aspirin) cholecalciferol (vitamin D3) 125 5,000 units PO QAM 05/24/21 08/11/23 mcg (5,000 unit) capsule (Dialyvite Vitamin D) omeprazole 20 mg capsule,delayed 20 mg PO DAILYBB 05/24/21 08/11/23 release pramipexole 0.5 mg tablet (Mirapex) 0.5 mg PO HS 05/24/21 08/11/23 pravastatin 10 mg tablet 10 mg PO HS 05/24/21 08/11/23 tamsulosin 0.4 mg capsule (Flomax) 0.8 mg PO HS 05/24/21 08/11/23 diltiazem HCl 120 mg 120 mg PO DAILY 08/11/23 08/11/23 capsule,extended release 24 hr telmisartan 80 1 tab PO DAILY 08/11/23 08/11/23 mg-hydrochlorothiazide 12.5 mg tablet (Micardis HCT) Results & Data (ED) Vital Signs Vital Signs - 24 hr 08/11/23 10:24 08/11/23 11:55 Temperature 36.9 C Temperature Source Oral Pulse Rate 67 Pulse Rate [Finger] 61 Respiratory Rate 18 18 Respiratory Effort / Characteristics Non-Labored Spontaneous Non-Labored Spontaneous Respiratory Depth Normal Normal Respiratory Pattern Regular Regular Blood Pressure 163/87 H Blood Pressure [Right Arm] 125/62 Blood Pressure Mean 112 Blood Pressure Mean [Right Arm] 83 Blood Pressure Position Sitting Blood Pressure Position [Right Arm] Lying Pulse Oximetry 95 95 Oxygen Delivery Method Room Air Room Air Sepsis Recent Fever Within 48 Hours No Sepsis New/Unexplained Change in Mental Status N/A Sepsis Action Taken by Nursing No Action Required Home Medications Current Medication List: was personally reviewed by me Laboratory Data Attestation: I reviewed the patient's lab results. 08/11/23 10:40 08/11/23 10:40 Lab Results 08/11/23 08/11/23 08/11/23 Range/Units 10:40 10:49 11:21 WBC 24.51 H (4.8-10.8) K/ul RBC 4.97 (4.70-6.10) M/uL Hgb 15.8 (14.0-18.0) g/dl Hct 45.3 (42.0-52.0) % MCV 91.1 (80.0-100.0) fL MCH 31.8 (25.0-34.0) pg MCHC 34.9 (32.0-36.0) g/dL RDW Std Deviation 39.8 (36.4-46.3) fL RDW Coeff of Linda 12.0 (11.5-14.5) % Plt Count 154 (130-400) K/uL MPV 9.9 (9.4-12.4) fL Immature Gran % (Auto) 1.1 % Neut % (Auto) 82.3 % Lymph % (Auto) 9.2 % [place] % (Auto) 7.1 % Eos % (Auto) 0.1 % Baso % (Auto) 0.2 % Neut # (Auto) 20.17 H (1.40-6.50) K/uL Lymph # (Auto) 2.26 (1.20-3.40) K/uL [place] # (Auto) 1.74 H (0.11-0.59) K/uL Eos # (Auto) 0.03 (0.00-0.50) K/uL Baso # (Auto) 0.04 (0.00-0.20) K/uL Immature Gran # (Auto) 0.27 H (0.01-0.20) K/uL RBC Morphology Unremarkable Sodium 135 L (136-145) mmol/L Potassium 4.0 (3.5-5.1) mmol/L Chloride 102 (98-107) mmol/L Carbon Dioxide 28 (21-32) mmol/L Anion Gap 5 (3-11) BUN 16 (6-23) mg/dl Creatinine 1.17 (0.6-1.4) mg/dl Est Cr Clr Drug Dosing 63.2 ml/min Est GFR ( Amer) 69.8 ml/min Est GFR (Non-Af Amer) 60.2 ml/min BUN/Creatinine Ratio 13.7 (10-20) Glucose 115 H (70-99(Fasting)) mg/dl Lactate 1.4 (0.4-2.0) mmol/L Calcium 9.5 (8.6-10.3) mg/dl Total Bilirubin 1.4 H (0.2-1.0) mg/dl AST 22 (13-39) U/L ALT 34 (7-52) U/L Alkaline Phosphatase 67 (34-104) U/L Total Protein 7.5 (6.0-8.3) gm/dl Albumin 3.8 (3.4-5.0) gm/dl Globulin 3.7 (2.5-4.0) gm/dl Albumin/Globulin Ratio 1.0 (0.9-2) Lipase 10 L (11-82) U/L Urine Color Dark Yellow Urine Appearance Cloudy A (Clear) Urine pH 6.0 (4.5-7.5) Ur Specific [place] 1.021 (1.000-1.030) Urine Protein Trace H (Negative) Urine Glucose (UA) Negative (Negative) Urine Ketones Negative (Negative) Urine Blood Negative (Negative) Urine Nitrite Positive A (Negative) Urine Bilirubin Negative (Negative) Urine Urobilinogen Negative (Negative) Ur Leukocyte Esterase Trace H (Negative) Urine WBC (Auto) >30 H (0-5) /hpf Urine RBC (Auto) 0-4 (0-4) /hpf U Hyaline Cast (Auto) 1-5 (0-5) /lpf U Epithel Cells (Auto) 0-5 (0-5) /lpf Urine Bacteria (Auto) 4+ H (Negative) Administered Medications Doxycycline Hyclate 100 mg/ (Dextrose) 100 mls @ 50 mls/hr IV Q12H IVA Stop: 08/21/23 14:59 Last Admin: 08/11/23 15:42 Dose: 50 mls/hr Documented By: ANGELES Discontinued Medications Sodium Chloride (Nss) 500 mls @ 999 mls/hr IV .Q31M STA Stop: 08/11/23 11:01 Last Infusion: 08/11/23 12:09 Dose: Infused Documented By: Admin: 08/11/23 10:59 Dose: 999 mls/hr Documented By: ANGELES Acetaminophen (Ofirmev) 1,000 mg in 100 mls @ 400 mls/hr IV NOW STA Stop: 08/11/23 10:45 Last Infusion: 08/11/23 11:12 Dose: Infused Documented By: Admin: 08/11/23 10:53 Dose: 400 mls/hr Documented By: ANGELES Ceftriaxone Sodium (Rocephin) 2,000 mg in 50 mls @ 100 mls/hr IV NOW STA Stop: 08/11/23 11:02 Last Infusion: 08/11/23 12:09 Dose: Infused Documented By: Admin: 08/11/23 11:11 Dose: 100 mls/hr Documented By: ANGELES Ketorolac Tromethamine (Ketorolac Tromethamine 15 Mg/Ml Vial) 15 mg IV NOW STA Stop: 08/11/23 10:32 Last Admin: 08/11/23 10:54 Dose: 15 mg Documented By: ANGELES Ondansetron HCl (Ondansetron Inj 2 Mg/Ml 2 Ml Vial) 4 mg IV NOW STA Stop: 08/11/23 10:32 Last Admin: 08/11/23 10:54 Dose: 4 mg Documented By: ANGELES Imaging Data Radiologist's Impression: Scrotum Ultrasound 08/11/23 10:31 SCROTAL ULTRASOUND CLINICAL HISTORY: pain, swelling, poss torsion or infection COMPARISON STUDY: None. TECHNIQUE: Grayscale and color and duplex Doppler sonography of the scrotum was performed. FINDINGS: The right testis measures 4.7 x 2.1 x 2.5 cm and the left measures 4.1 x 3.5 x 2.9 cm. There is no testicular mass. There is hypervascularity and heterogeneity of the left epididymis. There is also slight asymmetric hypervascularity of the left testis. Several bilateral epididymal cysts are noted. There are small bilateral hydroceles, left larger than right. IMPRESSION: 1. Sonographic findings suggestive of left epididymoorchitis. 2. No testicular mass. 3. Small bilateral hydroceles, left larger than right. ACT 112: Negative or not required by law. Electronically signed by: Shane Mcdaniel M.D. 08/11/2023 12:10 PM Discharge Plan Visit Data Chief Complaint: Testicular Pain Stated Complaint: SCROTUM PAIN ED Provider: Romario Coleman Discharge Problem: Pain in left testicle, Acute orchitis, Leukocytosis, Acute UTI Patient Disposition: Admitted As Inpatient Condition: Fair Discharge Instructions Interventions: ED Discharge Assessment Last Done: 08/11/23 14:49 Discharge Problem: Leukocytosis Qualifiers: Leukocytosis type: unspecified Qualified Code(s): D72.829 - Elevated white blood cell count, unspecified
[2023-08-11 10:55] LABS: Hematocrit (blood only) 45.3 % (42.0-52.0); Hemoglobin 15.8 g/dl (14.0-18.0); Mean Corpuscular Hemoglobin 31.8 pg (25.0-34.0); Mean Corpuscular Hgb Conc 34.9 g/dL (32.0-36.0); Mean Corpuscular Volume 91.1 fL (80.0-100.0); Mean Platelet Volume 9.9 fL (9.4-12.4); Platelet Count 154 K/uL (130-400); RDW Standard Deviation 39.8 fL (36.4-46.3); Red Blood Count 4.97 M/uL (4.70-6.10); White Blood Count 24.51 K/ul (4.8-10.8)
[2023-08-11 11:11] LABS: Basophils # (auto) 0.04 K/uL (0.00-0.20); Basophils % (auto) 0.2 %; Eosinophils # (auto) 0.03 K/uL (0.00-0.50); Eosinophils % (auto) 0.1 %; Immature Granulocytes # (auto) 0.27 K/uL (0.01-0.20); Immature Granulocytes % (auto) 1.1 %; Lymphocytes # (auto) 2.26 K/uL (1.20-3.40); Lymphocytes % (auto) 9.2 %; Monocytes # (auto) 1.74 K/uL (0.11-0.59); Monocytes % (auto) 7.1 %; Neutrophils # (auto) 20.17 K/uL (1.40-6.50); Neutrophils % (auto) 82.3 %; RBC Morphology Unremarkable
[2023-08-11 11:30] LABS: Appearance Urine Cloudy (Clear); Bacteria Urine Automated 4+ (Negative); Bilirubin Urine Negative (Negative); Blood Urine Negative (Negative); Color Urine Dark Yellow; Epithelial Cell Urine Auto 0-5 /lpf (0-5); Glucose Urine UA Negative (Negative); Ketones Urine Negative (Negative); Leukocyte Esterase Urine Trace (Negative); Nitrite Urine Positive (Negative); Protein Urine Trace (Negative); RBC Urine Automated 0-4 /hpf (0-4); Specific Gravity Urine 1.021 (1.000-1.030); Urobilinogen Urine Negative (Negative); WBC Urine Automated >30 /hpf (0-5)
[2023-08-11 11:48] LABS: Albumin Level 3.8 gm/dl (3.4-5.0); Bilirubin,Total 1.4 mg/dl (0.2-1.0); Calcium 9.5 mg/dl (8.6-10.3)
[2023-08-11 11:55] LABS: BUN Creatinine Ratio 13.7 (10-20); Creatinine Clr Calc Pharmacy 63.2 ml/min; Est GFR (African American) 69.8 ml/min; Est GFR (Non-African American) 60.2 ml/min; Globulin 3.7 gm/dl (2.5-4.0); Total Protein 7.5 gm/dl (6.0-8.3)
--- NOTE | 2023-08-11 12:11 | Ultrasound Report ---
SCROTAL ULTRASOUND CLINICAL HISTORY: pain, swelling, poss torsion or infection COMPARISON STUDY: None. TECHNIQUE: Grayscale and color and duplex Doppler sonography of the scrotum was performed. FINDINGS: The right testis measures 4.7 x 2.1 x 2.5 cm and the left measures 4.1 x 3.5 x 2.9 cm. Ther e is no testicular mass. There is hypervascularity and heterogeneity of the left epididymis. There is also slight asymmetric hypervascularity of the left testis. Several bilateral epididymal cysts are n oted. There are small bilateral hydroceles, left larger than right. IMPRESSION: 1. Sonographic findings suggestive of left epididymoorchitis. 2. No testicular mass. 3. Small bilateral hydroceles, left larger than right. ACT 112: Negative or not required by law. Electronically signed by: Shane Mcdaniel M.D. 08/11/2023 12:10 PM
--- NOTE | 2023-08-11 12:33 | History & Physical Report ---
Date of Service August 11, 2023 Assessment & Plan (1) Epididymo-orchitis without abscess: Plan: Epididymoorchitis Given Rocephin. We will continue Rocephin/Dox Urology consulted No signs of sepsis No signs of [place] Patient with history of BPH, does not feel he is retaining. Bladder scan for next PVR pending, if PVR greater than 300 can cath at that time. Otherwise defer (2) Hypertension, essential: Plan: Continue home meds Plan DVT prophylaxis: Lovenox Disposition: Medical surgical CODE STATUS: Full code Diet: Regular History of Present Illness Primary Care Provider: Moni Pickett MD Chriss is a 78-year-old male with a past medical history of a sending aortic aneurysm, BPH, GERD, hypertension, hyperlipidemia, JANIE, pre-DM who presents to the ER with difficulty voiding and testicular swelling with 2 days of L testicular swelling. Dysuria yesterday, none today. NO hematuria. No fever/chills/sweats. No trauma. 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 Hx hypertension. Otherwise denies medical history. No tobacco abuse, rare social alcohol use. Full code. No medication allergies. Took htn med this AM Medical History: Reviewed Medications: Reviewed Surgical History: Reviewed Family history: Reviewed Allergies: Reviewed Social History: No etoh Code Status: Full Allergies Allergy/AdvReac Type Severity Reaction Status Date / Time No Known Drug Allergies Allergy Verified 04/20/23 09:21 house dust mite AdvReac Verified 04/20/23 09:21 Home Medications Medication Instructions Recorded Confirmed Type fluticasone propionate 50 2 sprays intranasal BID #48 grams 06/26/19 04/20/23 History mcg/actuation nasal spray,suspension (Flonase Allergy Relief) finasteride 5 mg tablet (Proscar) 5 mg PO QAM 11/15/20 04/20/23 History trazodone 100 mg tablet 100 mg PO HS sleep 11/15/20 04/20/23 History gabapentin 600 mg tablet 600 mg PO .COMPLEX 03/10/21 04/20/23 History (Neurontin) aspirin 81 mg tablet,delayed 81 mg PO QAM 05/24/21 04/20/23 History release ([place] Low Dose Aspirin) cholecalciferol (vitamin D3) 125 5,000 units PO QAM 05/24/21 04/20/23 History mcg (5,000 unit) capsule (Dialyvite Vitamin D) cyclosporine 0.05 % eye drops in a 1 drp OPB BID 05/24/21 04/20/23 History dropperette (Restasis) omeprazole 20 mg capsule,delayed 20 mg PO DAILYBB 05/24/21 04/20/23 History release pramipexole 0.5 mg tablet (Mirapex) 0.5 mg PO HS 05/24/21 04/20/23 History pravastatin 10 mg tablet 10 mg PO HS 05/24/21 04/20/23 History tamsulosin 0.4 mg capsule (Flomax) 0.8 mg PO HS 05/24/21 04/20/23 History Past Med/Surg History Medical History (Updated 08/11/23 @ 12:40 by Marc Crocker MD) Epistaxis Hypophosphatemia Benign essential hypertension Enlarged prostate without lower urinary tract symptoms (luts) Former smoker Generalized osteoarthritis History of malignant neoplasm of kidney Hyperlipidemia Insomnia Internal hemorrhoids Memory loss Obstructive sleep apnea Peripheral neuropathy Postnasal drip Prediabetes Renal/ureteral disease Thoracic aortic aneurysm Tubular adenoma of colon Neuropathy of both feet Surgical History S/P tonsillectomy and adenoidectomy S/P shoulder surgery S/P nasal septoplasty S/P carpal tunnel release S/p nephrectomy Family History Mother Kidney malignancy Grandfather Prostate cancer Myocardial infarction Denies family history of Colon cancer Ovarian cancer Breast cancer Social History Smoking Status: Former smoker Tobacco Type: Cigarettes Hx Alcohol Use: Yes Alcohol type: beer Hx Substance Use: No Preferred Language: Fijian Communication Ability: Effective Visual Impairment: No Limitations Hearing Ability: Normal 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 NAD. Cooperative. HEENT: Atraumatic, normocephalic. PERLAA. EOM intact. Vision/hearing intact Pulm: CTAB A&P. -wheezes, -rales, -rhonchi. Symmetrical chest rise. No increased work of breathing. No respiratory distress. Cardiac: RRR, -mrg. Radial pulses intact and symmetrical. Abdominal: Nontender, nondistended, soft. BS present. : Testicles bilaterally swelling left greater than right, tender to posterior palpation on the left consistent with epididymitis. No surrounding tenderness, erythema, no crepitus or evidence of subcu emphysema. Results & Data Results & Data Vital Signs (Past 12 Hours) Vital Signs Temp Pulse Pulse Resp BP BP Pulse Ox 08/11/23 11:55 61 18 125/62 95 08/11/23 10:24 36.9 C 67 18 163/87 H 95 O2 Del Method 08/11/23 11:55 Room Air 08/11/23 10:24 Room Air PG Care Time/CCT Total # of Minutes Spent Total Time Spent with Patient: Total time spent is greater than 50% in coordination of care (as documented) at patient's floor/unit and/or counseling patient: Coding Level of Care Code 31199 INT INP/OBS CARE 255MIN Diagnoses Epididymo-orchitis without abscess N45.3 Hypertension, essential I10
--- NOTE | 2023-08-11 14:05 | Urology Consultation ---
Date of Consultation August 11, 2023 Assessment & Plan (1) Epididymo-orchitis without abscess: Overall clinical picture is suspicious for epididymoorchitis. He is currently covered on ceftriaxone and urine culture is pending. I do not appreciate and crepitus or fluctuant areas that would necessitate drainage. For now would recommend continuing antibiotics, adjusting coverage as culture data becomes available. He can use tylenol or ibuprofen for pain. Ensure he is emptying his bladder - would obtain PVR after voiding. Would continue tamsulosin and finasteride. No plan for surgical intervention at this time. Urology will follow along. History of Present Illness Reason for Consultation: Epididymoorchitis Attending Physician: Marc Crocker MD. History of Present Illness This is a 78 yo male who presented to the ED on 08/11/2023 with left sided scrotal swelling and pain. THis has been going on for 3-4 days. He denies any inciting trauma or recent instrumentation. He denies any associated urinary symptoms, specifically he denies hematuria and dysuria. He has a urologist and is followed for history of kidney cancer (s/p right partial nephrectomy at [facility]). He is currently on tamsulosin and finasteride. He's noticed gradually increasing urinary urgency over the past several months. He has no history of surgery on the prostate. Lab work in the ED was notable for pronounced leukocytosis (WBC 24.51). Creatinine was 1.17 and glucose was 115. Urinalysis was positive for nitrites, trace leukocyte esterase and 4+ bacteria. He had a scrotal ultrasound performed on 08/11/2023. I independently reviewed these images. Both testiscles are in position with no masses. There is blood flow bilaterally with some hyperemia on the left. The left side is slightly enlarged and there is a small amount of hydrocele fluid on that side. Allergies Allergy/AdvReac Type Severity Reaction Status Date / Time No Known Drug Allergies Allergy Verified 04/20/23 09:21 house dust mite AdvReac Verified 04/20/23 09:21 Home Medications Medication Instructions Recorded Confirmed Type fluticasone propionate 50 2 sprays intranasal BID #48 grams 06/26/19 08/11/23 Hi story mcg/actuation nasal spray,suspension (Flonase Allergy Relief) finasteride 5 mg tablet (Proscar) 5 mg PO QAM 11/15/20 08/11/23 History trazodone 100 mg tablet 100 mg PO HS sleep 11/15/20 08/11/23 History gabapentin 600 mg tablet 600 mg PO .COMPLEX 03/10/21 08/11/23 History (Neurontin) aspirin 81 mg tablet,delayed 81 mg PO QAM 05/24/21 08/11/23 History release ([place] Low Dose Aspirin) cholecalciferol (vitamin D3) 125 5,000 units PO QAM 05/24/21 08/11/23 History mcg (5,000 unit) capsule (Dialyvite Vitamin D) omeprazole 20 mg capsule,delayed 20 mg PO DAILYBB 05/24/21 08/11/23 History release pramipexole 0.5 mg tablet (Mirapex) 0.5 mg PO HS 05/24/21 08/11/23 History pravastatin 10 mg tablet 10 mg PO HS 05/24/21 08/11/23 History tamsulosin 0.4 mg capsule (Flomax) 0.8 mg PO HS 05/24/21 08/11/23 History diltiazem HCl 120 mg 120 mg PO DAILY 08/11/23 08/11/23 History capsule,extended release 24 hr telmisartan 80 1 tab PO DAILY 08/11/23 08/11/23 History mg-hydrochlorothiazide 12.5 mg tablet (Micardis HCT) Patient History Medical History (Updated 08/11/23 @ 12:40 by Marc Crocker MD) Epistaxis Hypophosphatemia Benign essential hypertension Enlarged prostate without lower urinary tract symptoms (luts) Former smoker Generalized osteoarthritis History of malignant neoplasm of kidney Hyperlipidemia Insomnia Internal hemorrhoids Memory loss Obstructive sleep apnea Peripheral neuropathy Postnasal drip Prediabetes Renal/ureteral disease Thoracic aortic aneurysm Tubular adenoma of colon Neuropathy of both feet Surgical History S/P tonsillectomy and adenoidectomy S/P shoulder surgery S/P nasal septoplasty S/P carpal tunnel release S/p nephrectomy Family History Mother Kidney malignancy Grandfather Prostate cancer Myocardial infarction Denies family history of Colon cancer Ovarian cancer Breast cancer Social History Smoking Status: Former smoker Tobacco Type: Cigarettes Hx Alcohol Use: Yes Alcohol type: beer Hx Substance Use: No Preferred Language: Greenlandic Communication Ability: Effective Visual Impairment: No Limitations Hearing Ability: Normal [place] [employer] Required: No Beliefs That Will Affect Care: None marital status: Current Living Situation: Spouse current occupational status: employed Feels Safe at Home: Yes Childhood Exposure to Second-Hand Smoke: Yes Diet: regular Dental Care, Regularly: Yes Physical Activity Frequency: 5-6 Times per Week Seatbelt Use: always Sunscreen Use: Yes Assistive Devices: Oxygen - Continuous Review of Systems Review of Systems: 12 point review of systems negative exce pt where otherwise indicated. Physical Exam Constitutional: well developed and well nourished; no acute distress Eyes: + anicteric sclerae; pupils not irregula r Respiratory: normal respiratory effort; no respiratory distress, does not use accessory muscles and no cough Cardiovascular: well perfused Gastrointestinal (Abdomen): Inspection/Auscultation: abdomen normal to inspection; abdomen not distended Musculoskeletal: Extremities: extremities normal to inspection Skin: normal turgor; no rashes and no lesions Neurologic: moves all extremities and awake Psychiatric: Orientation: alert and oriented x 3 Genitourinary: no inguinal adenopathy bilaterally. penis with orthotopic meatus, no discharge or drainage. Bilateral testes palpable in the scrotal sac, left testis is enlarged and indurated with overlying erythema. Area is tender to palpation. No crepitus. No fluctuance. Results & Data Vital Signs (Past 12 Hours) Vital Signs Temp Pulse Pulse Resp BP BP Pulse Ox 08/11/23 11:55 61 18 125/62 95 08/11/23 10:24 36.9 C 67 18 163/87 H 95 O2 Del Method 08/11/23 11:55 Room Air 08/11/23 10:24 Room Air PG Care Time/CCT Total # of Minutes Spent Total Time Spent with Patient: Total time spent is greater than 50% in coordination of care (as documented) at patient's floor/unit and/or counseling patient: Coding Level of Care Code 67383 IN/OBS CONSULT LVL 3,45M Diagnoses Epididymo-orchitis without abscess N45.3
[2023-08-11] MEDS: DOXYCYCLINE HYCLATE 100 MG in DEXTROSE 5% MINI-B 100 ML IV SCH (15:42)
[2023-08-11] MEDS: ACETAMINOPHEN 325 MG TAB PO PRN (17:33)
[2023-08-11] MEDS: KETOROLAC TROMETHAMINE 15 MG/ML VIAL IV PRN (17:34)
[2023-08-11] MEDS: PRAVASTATIN SOD 10 MG TAB PO SCH (20:46)
[2023-08-11] MEDS: TAMSULOSIN HCL 0.4 MG CAP PO SCH (20:46)
[2023-08-11] MEDS: traZODone HCL 100 MG TAB PO SCH (20:46)
[2023-08-11] MEDS: PRAMIPEXOLE DIHYDROCHLO 0.5 MG TAB PO SCH (20:47)
[2023-08-12] MEDS: DOXYCYCLINE HYCLATE 100 MG in DEXTROSE 5% MINI-B 100 ML IV SCH ×2 (03:43→16:50)
[2023-08-12] MEDS: KETOROLAC TROMETHAMINE 15 MG/ML VIAL IV PRN ×2 (03:43→14:41)
[2023-08-12] MEDS: ENOXAPARIN INJ 40 MG/0.4 ML SYR SQ SCH (08:10)
[2023-08-12] MEDS: ASPIRIN 81 MG ECTAB PO SCH (08:10)
[2023-08-12] MEDS: FINASTERIDE 5 MG TAB PO SCH (08:10)
[2023-08-12] MEDS: LOSARTAN POTASSIUM 50 MG TAB PO SCH (08:10)
[2023-08-12 08:20] LABS: Basophils # (auto) 0.05 K/uL (0.00-0.20); Basophils % (auto) 0.3 %; Eosinophils # (auto) 0.06 K/uL (0.00-0.50); Eosinophils % (auto) 0.3 %; Hematocrit (blood only) 42.6 % (42.0-52.0); Hemoglobin 14.9 g/dl (14.0-18.0); Immature Granulocytes # (auto) 0.16 K/uL (0.01-0.20); Immature Granulocytes % (auto) 0.9 %; Lymphocytes # (auto) 2.59 K/uL (1.20-3.40); Lymphocytes % (auto) 14.2 %; Mean Corpuscular Hemoglobin 31.6 pg (25.0-34.0); Mean Corpuscular Volume 90.4 fL (80.0-100.0); Mean Platelet Volume 9.8 fL (9.4-12.4); Monocytes # (auto) 1.14 K/uL (0.11-0.59); Monocytes % (auto) 6.2 %; Neutrophils % (auto) 78.1 %; Platelet Count 145 K/uL (130-400); RDW Coefficient of Variation 12.1 % (11.5-14.5); Red Blood Count 4.71 M/uL (4.70-6.10)
[2023-08-12 08:48] LABS: BUN Creatinine Ratio 17.7 (10-20); Calcium 9.1 mg/dl (8.6-10.3); Est GFR (Non-African American) 56.1 ml/min; Potassium 4.2 mmol/L (3.5-5.1)
--- NOTE | 2023-08-12 09:26 | Urology Progress Note ---
Date of Service August 12, 2023 Assessment & Plan (1) Pain in left testicle: (2) Acute orchitis: Plan Ongoing left epididymoorchitis, seems to be improving with ceftriaxone. Would recommend continuing to follow cultures and tailor antibiotics once these become available. He can try a hot or cold packs to help with pain. He can also try to elevate the scrotum to help with any edema. No plan for surgical intervention at this time. Admission and Anticipated Discharge Date Admission Date: August 11, 2023 Subjective Still having some left scrotal pain, worse with movement when he sits on it Tolerating a diet with no nausea or vomiting Not having any fevers or chills WBC improved (24 down to 18) Creatinine 1.24 Urine culture with gram-negative rods, final speciation and sensitivities pendingremains on broad-spectrum antibiotics with ceftriaxone Physical Exam Physical Exam: Well-appearing, NAD Genitourinary: No inguinal adenopathy bilaterally. Scrotum is tender to palpation on the left. Left testis is indurated and enlarged. Some of the induration extending up the spermatic cord has receded from prior exam. There is some penile edema, but no fluctuant areas. No crepitus or fluctuance of the scrotum to suggest worsening infection or abscess. Results & Data Vital Signs (Past 12 Hours) Vital Signs Temp Pulse Pulse Resp BP Pulse Ox O2 Del Method 08/12/23 08:01 36.8 C 82 16 150/74 H 93 Room Air 08/12/23 02:35 66 24 92 08/11/23 23:25 76 25 H 95 FiO2 08/12/23 08:01 08/12/23 02:35 21 08/11/23 23:25 21 PG Care Time/CCT Total # of Minutes Spent Total Time Spent with Patient: Total time spent is greater than 50% in coordination of care (as documented) at patient's floor/unit and/or counseling patient: Coding Level of Care Code 33739 SUB INP/OBS CARE 10/25MIN Diagnoses Pain in left testicle N50.812 Acute orchitis N45.2
[2023-08-12] MEDS: cefTRIAXone SODIUM 2,000 MG in DEXTROSE 5 % MINI-B 50 ML IV SCH (13:14)
--- NOTE | 2023-08-12 17:56 | Hospitalist Progress Note ---
Date of Service August 12, 2023 Assessment & Plan (1) Epididymo-orchitis without abscess: Plan: Epididymoorchitis Slight improvement, pending cultures continue current antibiotic management, follow urology consult/stay significantly pain Urology consulted No signs of sepsis No signs of Forniers (2) Hypertension, essential: Plan: Continue home meds, the blood pressure is fairly managed Plan DVT prophylaxis: Lovenox Disposition: Medical surgical CODE STATUS: Full code Diet: Regular Admission and Anticipated Discharge Date Admission Date: August 11, 2023 Subjective If still have significant pain, on exam patient's penis and scrotum were erythematous, edematous and tender Review of Systems Review of Systems: 12 point review of systems negative exce pt where otherwise indicated. Physical Exam Physical Exam: Well-appearing, NAD Constitutional: well developed and well nourished; no acute distress Eyes: + anicteric sclerae; pupils not irregula r Respiratory: normal respiratory effort; no respiratory distress, does not use accessory muscles and no cough Gastrointestinal (Abdomen): Inspection/Auscultation: abdomen normal to inspection; abdomen not distended Musculoskeletal: Extremities: extremities normal to inspection Skin: normal turgor; no rashes and no lesions Neurologic: moves all extremities and awake Psychiatric: Orientation: alert and oriented x 3 Results & Data Results & Data Vital Signs (Past 12 Hours) Vital Signs Temp Pulse Resp BP Pulse Ox O2 Del Method 08/12/23 15:17 36.9 C 67 16 131/73 94 Room Air 08/12/23 08:01 36.8 C 82 16 150/74 H 93 Room Air PG Care Time/CCT Total # of Minutes Spent Total Time Spent with Patient: Total time spent is greater than 50% in coordination of care (as documented) at patient's floor/unit and/or counseling patient: Coding Level of Care Code 97196 SUB INP/OBS CARE 2/35MIN Diagnoses Epididymo-orchitis without abscess N45.3 Hypertension, essential I10
[2023-08-12] MEDS: TAMSULOSIN HCL 0.4 MG CAP PO SCH (21:22)
[2023-08-12] MEDS: traZODone HCL 100 MG TAB PO SCH (21:22)
[2023-08-12] MEDS: PRAMIPEXOLE DIHYDROCHLO 0.5 MG TAB PO SCH (21:23)
[2023-08-12] MEDS: PRAVASTATIN SOD 10 MG TAB PO SCH (21:23)
[2023-08-12] MEDS: ACETAMINOPHEN 325 MG TAB PO PRN (21:29)
[2023-08-12] MEDS: FLUTICASONE PROPIONATE NA SPR 16 GM BTL PRN (23:05)
[2023-08-13] MEDS: DOXYCYCLINE HYCLATE 100 MG in DEXTROSE 5% MINI-B 100 ML IV SCH ×2 (03:25→14:59)
[2023-08-13] MEDS ORDERED: COUGH DROP (SUGAR FREE) LOZ 24 LOZ/1 BOX BUCCAL ONE (03:28)
[2023-08-13] MEDS: KETOROLAC TROMETHAMINE 15 MG/ML VIAL IV PRN (05:20)
[2023-08-13 06:47] LABS: Basophils # (auto) 0.03 K/uL (0.00-0.20); Basophils % (auto) 0.2 %; Eosinophils % (auto) 0.7 %; Hematocrit (blood only) 39.6 % (42.0-52.0); Hemoglobin 13.8 g/dl (14.0-18.0); Immature Granulocytes # (auto) 0.13 K/uL (0.01-0.20); Immature Granulocytes % (auto) 0.9 %; Lymphocytes # (auto) 2.01 K/uL (1.20-3.40); Lymphocytes % (auto) 14.7 %; Mean Corpuscular Hemoglobin 31.8 pg (25.0-34.0); Mean Corpuscular Hgb Conc 34.8 g/dL (32.0-36.0); Mean Corpuscular Volume 91.2 fL (80.0-100.0); Monocytes # (auto) 1.07 K/uL (0.11-0.59); Monocytes % (auto) 7.8 %; Neutrophils # (auto) 10.38 K/uL (1.40-6.50); Neutrophils % (auto) 75.7 %; Platelet Count 158 K/uL (130-400); RDW Coefficient of Variation 11.9 % (11.5-14.5); Red Blood Count 4.34 M/uL (4.70-6.10); White Blood Count 13.72 K/ul (4.8-10.8)
[2023-08-13 07:10] LABS: BUN Creatinine Ratio 16.1 (10-20); Calcium 8.6 mg/dl (8.6-10.3); Est GFR (African American) 69.1 ml/min; Est GFR (Non-African American) 59.6 ml/min; Potassium 3.9 mmol/L (3.5-5.1)
[2023-08-13] MEDS: ACETAMINOPHEN 325 MG TAB PO PRN ×2 (07:59→20:18)
[2023-08-13] MEDS: ASPIRIN 81 MG ECTAB PO SCH (08:05)
[2023-08-13] MEDS: LOSARTAN POTASSIUM 50 MG TAB PO SCH (08:05)
[2023-08-13] MEDS: FINASTERIDE 5 MG TAB PO SCH (08:06)
[2023-08-13] MEDS: ENOXAPARIN INJ 40 MG/0.4 ML SYR SQ SCH (08:06)
[2023-08-13] MEDS ORDERED: HYDROCODONE/ACETAMOPHEN 5/325MG TAB PO ONE (10:56)
[2023-08-13] MEDS: cefTRIAXone SODIUM 2,000 MG in DEXTROSE 5 % MINI-B 50 ML IV SCH (13:05)
--- NOTE | 2023-08-13 14:22 | Urology Progress Note ---
Date of Service August 13, 2023 Assessment & Plan (1) Pain in left testicle: (2) Acute orchitis: Plan Left epididymoorchitis - gradually improving with antibiotics. Remains afebrile and hemodynamically stable. Labs reviewedWBC downtrending to 13.72 today, normal renal function. Urine culture final with E. coli. On ceftriaxone and doxycycline. No fluctuant areas or crepitus that would require surgical intervention appreciated on exam. Continue supportive care and antibiotic therapy. He can try a cold pack to help with pain and scrotal elevation to help with any edema. Urology will follow. Admission and Anticipated Discharge Date Admission Date: August 11, 2023 Subjective Patient examined at bedside this AM. Awake, resting in bed on arrival. No acute distress. Still with scrotal/left testicular pain. Voiding without issue. Denies hematuria or dysuria. No fevers. Review of Systems Constitutional: as per Subjective / HPI Genitourinary: + as per Subjective / HPI Physical Exam Physical Exam: Well-appearing, NAD Respiratory: no respiratory distress and no labored breathing Neurologic: awake Psychiatric: Orientation: alert, oriented x 3 and cooperative Genitourinary: Scrotum is tender to palpation on the left. Left testis is indurated, enlarged, erythematous. No crepitus or fluctuance of the scrotum to suggest worsening infection or abscess. No open areas or drainage Results & Data Vital Signs (Past 12 Hours) Vital Signs Temp Pulse Resp BP Pulse Ox O2 Del Method 08/13/23 07:10 36.9 C 61 16 146/78 H 96 Room Air PG Care Time/CCT Total # of Minutes Spent Total Time Spent with Patient: Total time spent is greater than 50% in coordination of care (as documented) at patient's floor/unit and/or counseling patient: Coding Level of Care Code 96319 SUB INP/OBS CARE 2/35MIN Diagnoses Pain in left testicle N50.812 Acute orchitis N45.2
--- NOTE | 2023-08-13 15:19 | Hospitalist Progress Note ---
Date of Service August 13, 2023 Assessment & Plan (1) Epididymo-orchitis without abscess: Plan: Epididymoorchitis Slight improvement, pending cultures continue current antibiotic management, follow urology consult/stay significantly pain Urology consulted, continue antibiotics No signs of sepsis continue scrotal support (2) Hypertension, essential: Plan: Continue home meds, the blood pressure is fairly managed Plan DVT prophylaxis: Lovenox Disposition: Medical surgical CODE STATUS: Full code Diet: Regular Admission and Anticipated Discharge Date Admission Date: August 11, 2023 Subjective patient seen and examined, still has some scrotal pain Review of Systems Review of Systems: All systems reviewed are negative, apart from the ones contained in the history. Physical Exam Physical Exam: The patient is awake, alert and oriented 3, well developed and well nourished, normocephalic and atraumatic, lying in bed and in no acute distress. HEENT--PERRL, EOMI, mucous membranes and oropharynx mildly dry Neck--supple. No JVD. No bruits. Thyroid normal, trachea midline, no adenopathy. Heart--normal S1 and S2. No murmurs, rubs or gallops. Lungs--clear bilaterally, no respiratory distress, no accessory muscle use. Abdomen--normal bowel sounds and soft. Mild epigastric and left sided abdominal pain Extremities--no cyanosis or clubbing. No edema. Dermatologic--normal skin turgor, normal color, no abnormal lymph nodes, no rash. Neurologic--cranial nerves II through XII grossly intact. Rheumatologic--normal range of motion. Psychiatric--normal affect. Results & Data Results & Data Vital Signs (Past 12 Hours) Vital Signs Temp Pulse Resp BP Pulse Ox O2 Del Method 08/13/23 07:10 98.4 F 61 16 146/78 H 96 Room Air PG Care Time/CCT Total # of Minutes Spent Total Time Spent with Patient: Total time spent is greater than 50% in coordination of care (as documented) at patient's floor/unit and/or counseling patient: Coding Level of Care Code 43442 SUB INP/OBS CARE 2/35MIN Diagnoses Epididymo-orchitis without abscess N45.3 Hypertension, essential I10 Time Spent (min) 35
[2023-08-13] MEDS: FLUTICASONE PROPIONATE NA SPR 16 GM BTL PRN (19:33)
[2023-08-13] MEDS: PRAVASTATIN SOD 10 MG TAB PO SCH (20:03)
[2023-08-13] MEDS: traZODone HCL 100 MG TAB PO SCH (20:04)
[2023-08-13] MEDS: TAMSULOSIN HCL 0.4 MG CAP PO SCH (20:04)
[2023-08-13] MEDS: PRAMIPEXOLE DIHYDROCHLO 0.5 MG TAB PO SCH (20:04)
[2023-08-14] MEDS: DOXYCYCLINE HYCLATE 100 MG in DEXTROSE 5% MINI-B 100 ML IV SCH (02:42)
[2023-08-14 06:26] LABS: Basophils # (auto) 0.05 K/uL (0.00-0.20); Basophils % (auto) 0.4 %; Eosinophils # (auto) 0.15 K/uL (0.00-0.50); Eosinophils % (auto) 1.3 %; Hematocrit (blood only) 38.8 % (42.0-52.0); Hemoglobin 13.7 g/dl (14.0-18.0); Immature Granulocytes # (auto) 0.09 K/uL (0.01-0.20); Immature Granulocytes % (auto) 0.8 %; Lymphocytes # (auto) 2.38 K/uL (1.20-3.40); Lymphocytes % (auto) 20.8 %; Mean Corpuscular Hemoglobin 31.5 pg (25.0-34.0); Mean Corpuscular Hgb Conc 35.3 g/dL (32.0-36.0); Mean Corpuscular Volume 89.2 fL (80.0-100.0); Mean Platelet Volume 10.3 fL (9.4-12.4); Monocytes # (auto) 1.04 K/uL (0.11-0.59); Monocytes % (auto) 9.1 %; Neutrophils # (auto) 7.75 K/uL (1.40-6.50); Neutrophils % (auto) 67.6 %; Platelet Count 180 K/uL (130-400); RDW Coefficient of Variation 11.9 % (11.5-14.5); RDW Standard Deviation 38.7 fL (36.4-46.3); Red Blood Count 4.35 M/uL (4.70-6.10); White Blood Count 11.46 K/ul (4.8-10.8)
[2023-08-14 06:35] LABS: Anion Gap 6 (3-11); BUN Creatinine Ratio 17.2 (10-20); Blood Urea Nitrogen 21 mg/dl (6-23); Calcium 9.1 mg/dl (8.6-10.3); Carbon Dioxide 26 mmol/L (21-32); Chloride 105 mmol/L (98-107); Creatinine Clr Calc Pharmacy 59.9 ml/min; Est GFR (African American) 66.3 ml/min; Est GFR (Non-African American) 57.2 ml/min; Glucose 98 mg/dl (70-99(Fasting)); Sodium 137 mmol/L (136-145)
[2023-08-14] MEDS: ASPIRIN 81 MG ECTAB PO SCH (09:26)
[2023-08-14] MEDS: ENOXAPARIN INJ 40 MG/0.4 ML SYR SQ SCH (09:26)
[2023-08-14] MEDS: LOSARTAN POTASSIUM 50 MG TAB PO SCH (09:26)
[2023-08-14] MEDS: FINASTERIDE 5 MG TAB PO SCH (09:26)
--- NOTE | 2023-08-14 09:37 | Urology Progress Note ---
Date of Service August 14, 2023 Assessment & Plan (1) Pain in left testicle: (2) Acute orchitis: Plan Left epididymoorchitis - gradually improving with antibiotics. Remains afebrile and hemodynamically stable. Labs reviewedWBC improved to 11.46, normal renal function. Urine culture final with E. coli. Blood cultures preliminary no growth. On ceftriaxone and doxycycline. No fluctuant areas or crepitus that would require surgical intervention appreciated on exam. Continue supportive care and antibiotic therapy. Will need a total of 10-14 days of antibiotics per final culture sensitivities. He can try a cold pack to help with pain, scrotal elevation to help with any edema, and scrotal support. Urology will sign-off. Please contact us with any further questions, concerns, or changes in patient status. Admission and Anticipated Discharge Date Admission Date: August 11, 2023 Subjective Patient examined at bedside this AM. Awake, resting in bed on arrival. No acute distress. Still with scrotal/left testicular pain, but overall improved from yesterday. Voiding without issue. Denies hematuria or dysuria. Denies fevers, chills, nausea, vomiting. Eager to go home. Review of Systems Constitutional: as per Subjective / HPI Gastrointestinal: as per Subjective / HPI Genitourinary: + as per Subjective / HPI Physical Exam Physical Exam: Well-appearing, NAD Respiratory: no respiratory distress and no labored breathing Neurologic: awake Psychiatric: Orientation: alert, oriented x 3 and cooperative Genitourinary: Scrotum is tender to palpation on the left. Left testis is indurated, enlarged, erythematous but improved since yesterday. No crepitus or fluctuance of the scrotum to suggest worsening infection or abscess. No open areas or drainage. Minimal right scrotal tenderness. Results & Data Vital Signs (Past 12 Hours) Vital Signs Temp Pulse Pulse Resp BP Pulse Ox O2 Del Method 08/14/23 07:05 36.8 C 59 L 18 147/78 H 92 Room Air 08/13/23 23:48 60 92 08/13/23 23:31 159/80 H FiO2 08/14/23 07:05 08/13/23 23:48 21 08/13/23 23:31 PG Care Time/CCT Total # of Minutes Spent Total Time Spent with Patient: Total time spent is greater than 50% in coordination of care (as documented) at patient's floor/unit and/or counseling patient: Coding Level of Care Code 65487 SUB INP/OBS CARE 235MIN Diagnoses Pain in left testicle N50.812 Acute orchitis N45.2
--- NOTE | 2023-08-14 14:11 | Discharge Summary ---
Date of Service August 14, 2023 Admission HPI Per Admitting Provider Chriss is a 78-year-old male with a past medical history of a sending aortic aneurysm, BPH, GERD, hypertension, hyperlipidemia, JANIE, pre-DM who presents to the ER with difficulty voiding and testicular swelling with 2 days of L testicular swelling. Dysuria yesterday, none today. NO hematuria. No fever/chills/sweats. No trauma. 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 Hx hypertension. Otherwise denies medical history. No tobacco abuse, rare social alcohol use. Full code. No medication allergies. Took htn med this AM Medical History: Reviewed Medications: Reviewed Surgical History: Reviewed Family history: Reviewed Allergies: Reviewed Social History: No etoh Code Status: Full Principal Diagnosis epididimo orchitis Discharge Exam The patient is awake, alert and oriented 3, well developed and well nourished, normocephalic and atraumatic, lying in bed and in no acute distress. HEENT--PERRL, EOMI, mucous membranes and oropharynx mildly dry Neck--supple. No JVD. No bruits. Thyroid normal, trachea midline, no adenopat hy. Heart--normal S1 and S2. No murmurs, rubs or gallops. Lungs--clear bilaterally, no respiratory distress, no accessory muscle use. Abdomen--normal bowel sounds and soft. Mild epigastric and left sided abdominal pain Extremities--no cyanosis or clubbing. No edema. Dermatologic--normal skin turgor, normal color, no abnormal lymph nodes, no rash. Neurologic--cranial nerves II through XII grossly intact. Rheumatologic--normal range of motion. Psychiatric--normal affect. Discharge Data Allergies Allergy/AdvReac Type Severity Reaction Status Date / Time No Known Drug Allergies Allergy Verified 04/20/23 09:21 house dust mite AdvReac Verified 04/20/23 09:21 Consultations 08/11/23 12:19 ED Decision to Admit Stat 08/11/23 14:48 Consult Urology Routine Ordered Studies 08/11/23 10:31 US scrotum/testicle Stat Hospital Course (1) Epididymo-orchitis without abscess: Epididymoorchitis Slight improvement, cultures growin E coli glover sensistive -patient clinically much improved Appreciate urology -D/C on PO Doxycycline and cephalexin for 7 more days continue scrotal support -Outpatient f/u with urology (2) Hypertension, essential: Continue home meds, the blood pressure is fairly managed Plan DVT prophylaxis: Lovenox Disposition: Medical surgical CODE STATUS: Full code Diet: Regular Total Time Total Time Spent Total Time Spent (In Minutes): 35 Discharge Plan Discharge Items Patient Disposition: Home - Self-Care Reason For Visit: INFECTION Discharge Diagnosis: epididmo orchitis Condition on Discharge: Fair Activity: Resume your previous activity Non-emergency contact: Primary Care Provider and Urologist Call non-emergency contact if: you have any medication questions Follow-up/Referrals: Moni Pickett MD [Primary Care Provider] - 08/29/23 10:30 am (Appointment is going to with [address] [place] [address],[id number]) Diet: Regular Addtl Attending Provider Instructions: please make appointment to follow up with your PCP. Continue scrotal elevation as needed Pending Studies at Discharge: No Stand-Alone Forms: [facility] [employer], Smoking Cessation Medications and DC Order Prescriptions: New cephalexin 500 mg capsule 500 mg PO BID 7 Days Qty: 14 0RF doxycycline hyclate 100 mg tablet 100 mg PO BID 7 Days Qty: 14 0RF ibuprofen 600 mg tablet 600 mg PO Q8H PRN (Reason: pain) Qty: 14 0RF Continued fluticasone propionate [Flonase Allergy Relief] 50 mcg/actuation spray,suspension 2 sprays intranasal BID Qty: 48 finasteride [Proscar] 5 mg tablet 5 mg PO QAM trazodone 100 mg tablet 100 mg PO HS gabapentin [Neurontin] 600 mg tablet 600 mg PO .COMPLEX Rx Instructions: 600 mg PO 1 tablet in am, 2 tablets in pm telmisartan-hydrochlorothiazid [Micardis HCT] 80-12.5 mg tablet 1 tab PO DAILY diltiazem HCl 120 mg capsule,extended release 24hr 120 mg PO DAILY aspirin [[place] Low Dose Aspirin] 81 mg Tablet,Delayed Release (Dr/Ec) 81 mg PO QAM pramipexole [Mirapex] 0.5 mg tablet 0.5 mg PO HS pravastatin 10 mg tablet 10 mg PO HS tamsulosin [Flomax] 0.4 mg capsule 0.8 mg PO HS omeprazole 20 mg capsule,delayed release(DR/EC) 20 mg PO DAILYBB cholecalciferol (vitamin D3) [Dialyvite Vitamin D] 5,000 unit capsule 5,000 units PO QAM Discharge Orders: Discharge Order (Routine); Ordered 08/14/23 Ordered By: Kira Chavez Admission Data Admit Date/Time: 08/11/23 12:45 Attending Provider: Kira Chavez Admit Provider: Marc Crocker Primary Care Provider: Moni Pickett Other Providers: Marc Crocker; Darnell Mcfarland Other Interventions: Discharge Summary Assessment (RN) Last Done: 08/14/23 11:10 Coding Level of Care Code 31243 INP/OBS DISCH >30 MIN Diagnoses Epididymo-orchitis without abscess N45.3 Hypertension, essential I10 Time Spent (min) 35
--- OUTSIDE RECORDS SUMMARY | 2023-08-14 20:34 | External Medical Summary | Continuity of Care Document ---
Author Name Unknown Organization [facility] [address] [facility] Address [address] [place], [place] [id number] Care Team Providers Care Card Services Specialist Name Role Phone Moni Pickett Primary Care Physician [phone] [id number] 03/07/23 - 03/07/23 [facility] [address], [address] [place] [address] [phone] Encounter Diagnosis Loss of weight(Discharge Diagnosis) - 03/07/23 Generalized osteoarthritis(Discharge Diagnosis) - 03/07/23 Chronic kidney disease (CKD)(Discharge Diagnosis) - 03/07/23 Discharge Disposition: Home or Self Care Attending Physician: MD Pickett Amy L Allergies, Adverse Reactions, Alerts No Known Medication Allergies Substance Reaction Severity Status Dust mite upper resp symptoms Active Assessment and Plan Extracted from: Title:Office Visit Note Author:MD Pickett Amy L D ate:03/07/23 1.Loss of weight STATUS: new problem, now resolved. DATA: hx & weightsreviewed. GOAL: Maintain stable body weight. PLAN: his weight is going back up, so this supports our belief that this is not due to any serious etiology. Cont current monitoring. 2.Generalized osteoarthritis Refill Voltaren gel. 3.Chronic kidney disease (CKD) Reviewed recent labs, showing GFR improved. Return in 6 months. Immunizations Given and Recorded Vaccine Date Status Refusal Reason influenza virus vaccine, inactivated 06/16/22 Give n influenza virus vaccine, inactivated 06/21/21 Give n influenza virus vaccine, inactivated 1 06/21/20 Re corded SARS-CoV-2 (COVID-19) mRNA-1273 vaccine 2 03/31/21 Recorded pneumococcal 13-valent vaccine 3 12/24/18 Recorded tetanus/diphtheria/pertuss, acel (Tdap) 4 04/01/17 Recorded tetanus/diphtheria/pertuss, acel (Tdap) 01/29/13 R ecorded zoster vaccine live 07/01/14 Recorded pneumococcal 23-valent vaccine 01/29/13 Recorded 1Result Comment: [facility]- pt stated 2Result Comment: 2021-12-27: Historical information-source unspecified 3Result Comment: Route: Unknown 4Result Comment: 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[employer] 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 aspirin 81 mg oral tablet 81 mg, 1 tab, PO, Daily, 0, 0, 07/29/07 10:59:18, current medication from another provider, [id number], Constant Indicator Start Date: 07/29/07 Status: Ordered B-Complex 50 oral tablet Start: 07/17/19 10:58:00 EDT, 1 tab, PO, Daily Start Date: 07/17/19 Status: Ordered diclofenac 1% topical gel Start: 03/07/23 13:06:00 EDT, 2 g =, topical, qid, Disp# 100 g, Refills: 3, not to exceed 16 grams/day/single joint of lower extremities, PRN: Pain, Pharmacy: [facility] Start Date: 03/07/23 Status: Ordered diclofenac 1% topical gel Start: 03/07/23 15:45:00 EDT, 2 g =, topical, qid, Disp# 100 g, Refills: 3, not to exceed 16 grams/day/single joint of lower extremities, PRN: Pain, Pharmacy: [facility] Start Date: 03/07/23 Status: Ordered DilTIAZem (Eqv-Cardizem CD) 120 mg/24 hours oral capsule, extended release Start: 03/13/22 9:51:00 EDT, See Instructions, Disp# 90 cap, Refills: 3, TAKE 1 CAPSULE DAILY, Pharmacy: [facility] Start Date: 03/13/22 Status: Ordered finasteride 5 mg oral tablet Start: 01/09/23 12:57:00 EDT, See Instructions, Disp# 90 tab, Refills: 3, TAKE 1 TABLET DAILY, Pharmacy: [facility] Start Date: 01/09/23 Status: Ordered Flonase 50 mcg/inh nasal spray Start: 12/14/22 17:08:00 EDT, 2 spray, intranasal, Daily, Disp# 16 g, Refills: 3, Pharmacy: [facility] Start Date: 12/14/22 Status: Ordered gabapentin 600 mg oral tablet Start: 12/15/22 9:56:00 EDT, 1 tab, PO, tid, Disp# 270 tab, Refills: 3, Pharmacy: [facility] Start Date: 12/15/22 Status: Ordered Micardis 80 mg oral tablet Start: 12/15/22 10:05:00 EDT, 1 tab, PO, Daily, Disp# 90 tab, Refills: 3, [facility] Start Date: 12/15/22 Status: Ordered multivitamin Start: 09/29/11 15:10:00 EST, 1 tab, PO, Daily, tab Start Date: 09/29/11 Status: Ordered omeprazole 20 mg oral delayed release capsule See Instructions, Disp# 90 cap, Refills: 3, TAKE 1 CAPSULE DAILY, Pharmacy: [facility] Start Date: 07/14/21 Status: Ordered pramipexole 0.5 mg oral tablet Start: 10/10/22 12:53:00 EST, See Instructions, Disp# 90 tab, Refills: 3, TAKE 1 TABLET DAILY, Pharmacy: [facility] Start Date: 10/10/22 Status: Ordered pravastatin 20 mg oral tablet Start: 06/26/22 20:51:00 EDT, See Instructions, Disp# 90 tab, Refills: 3, TAKE 1 TABLET DAILY, Pharmacy: [facility] Start Date: 06/26/22 Status: Ordered ProAir HFA 90 mcg/inh inhalation aerosol Start: 07/25/22 11:46:00 EDT, 1 puff, inhaled, qid, Disp# 18 g, Refills: 1, PRN: as needed for wheezing, Pharmacy: [id number] Start Date: 07/25/22 Status: Ordered tamsulosin 0.4 mg oral capsule Start: 05/26/22 10:15:00 EDT, See Instructions, Disp# 180 cap, Refills: 3, TAKE 2 CAPSULES DAILY, Pharmacy: [facility] Start Date: 05/26/22 Status: Ordered traMADol 50 mg oral tablet Start: 04/09/18 10:59:00 EDT, 1 tab, PO, q4h, PRN: as needed for pain Start Date: 04/09/18 Status: Ordered traZODone 100 mg oral tablet Start: 01/02/23 20:56:00 EDT, See Instructions, Disp# 90 tab, Refills: 3, TAKE 1 TABLET AT BEDTIME,Pharmacy: [facility] Start Date: 01/02/23 Status: Ordered Vitamin D3 5000 intl units oral capsule Start: 07/17/19 9:07:00 EDT, 1 cap, PO, Daily Start Date: 07/17/19 Status: Ordered Mental Status 03/07/23 Barriers to Learning one year None evide nt Mandatory Health Literacy Documentation Yes Health Literacy Communication Barriers N ever Primary Language Jordanian Problem List Condition Confirmation Course Effective Dates Status H ealth Status Informant Acute gout Confirmed Active Memory loss Confirmed Active Ascending aortic aneurysm Confirmed Active Ankle edema Confirmed Active Atypical pneumonia Confirmed Active Acute bilateral back pain Confirmed Active Bacterial pneumonia Confirmed Active Cellulitis Confirmed Active Chronic cough Confirmed Active Chronic kidney disease (CKD) Confirmed Active COVID-19 Confirmed Active Generalized osteoarthritis Confirmed Active OVIEDO (dyspnea on exertion) Confirmed Active Edema Confirmed Active Esophageal reflux Confirmed Active HTN (hypertension) Confirmed Active Hyperlipidemia Confirmed Active HTN (hypertension) Confirmed Active Insomnia Confirmed Active Enlarged prostate without lower urinary tract symptoms (luts) Confirmed Active Lower urinary tract symptoms Confirmed Active Neuropathy Confirmed Active Neuropathy of lower extremity Confirmed Active JANIE (obstructive sleep apnea) Confirmed Active Toenail fungus Confirmed Active Post-nasal drip Confirmed Active PND (post-nasal drip) Confirmed Active Prediabetes Confirmed Active Renal mass Confirmed Active Renal mass Confirmed Active RLS (restless legs syndrome) Confirmed Active Tongue ulcer Confirmed Active Loss of weight Confirmed Active Diagnosis Diagnosis Type Effective Dates Health Status Clinical Service Informant Loss of weight Discharge Diagnosis 03/07/23 Non-Specified Generalized osteoarthritis Discharge Diagnosis 03/07/23 Non-Specified Chronic kidney disease (CKD) Discharge Diagnosis 03/07/23 Non-Specified Procedures Procedure Date Related Diagnosis Body Site Status Joint injection 02/08/22 Completed Injection into shoulder joint 1 12/14/21 Completed X-ray tomography of right shoulder 2 12/14/21 Completed X-ray tomography of lumbar spine 3 12/09/21 Completed Colonoscopy 4, 5 10/10/21 Complete d CXR - Chest X-ray 6 10/28/20 Compl eted Colonoscopy 7 01/14/18 Completed Shave biopsy and cauterization of skin 09/23/15 Completed Partial nephrectomy 8 08/06/07 Com pleted carpal tunnel release 9 C ompleted Nasal septoplasty Complet ed shoulder surgery 10 Compl eted Tonsillectomy and adenoidectomy [facility]: 1. No acute fracture or abnormality. Moderate degenerative changes about the AC joint with inferiorclacicular spur. No significant degenerative changes about the glenohumeral joint 3UOC Impression: 1. Degenerative changes to include disc space narrowing and spondylosis, no fractures or lesions. 4path - hyperplastic polyp 5COLO to cecum, 2 mm sigmoid polyp CF, left colon tics, hemorrhoids. 6No acute process. 7tubular adenomas - 5 year recall 8Cystoscopy, right ureteral stent placement, right open partial nephrectomy 9left hand 10-29-2012 left shoulder Vital Signs Most recent to oldest [Reference Range]: 1 Patient Weight 107.7 kg (03/07/23 12:53 PM) Heart Rate 90 bpm (03/07/23 12:53 PM) Respiratory Rate 18 br/min (03/07/23 12:53 PM) Blood Pressure 98/70mmHg (03/07/23 12:53 PM) Cuff Pulse Pressure 28 mmHg (03/07/23 12:53 PM) BP Location # 1 Left Arm (03/07/23 12:53 PM) Social History Social History Type Response Tobacco Former smoker, Start ed age 16 Years. Stopped age 37 Years. Smoking Status Never smoked cigaret segundo Sex Male FCM Outpt Note * MD Piyush, Moni Steve: PERFORM Event Display: FCM Outpt Note Authored Date: Chief Complaint follow up, no new concerns History of Present Illness 1) Unintentional wt loss - he feels that he's eating well. Not sure if he's still losing wt. 2) OA - would like refill of his Diclofenac topical. This does seem to help. 3) CKD - he had part of one kidney removed. Review of Systems Review of Systems- Constitutional: no fatigue or changes in weight. HEENT: no vision changes, or sinus congestion. Respiratory: no cough or SOB. Cardiac: no chest pain or pedal edema. GI: no abdominal pain or change in bowel habits. Neurologic: no headaches. Musculoskeletal: + joint pains. Physical Exam Vitals & Measurements HR:90(Monitored) RR:18 BP:98/70 SpO2:93% WT:107.7kg WT:107.700kg(Dosing) PHQ2 Data(Data Documented on:03/07/2023 12:53) Emotional health assessment NEGATIVE Alert, in NAD. HEENT - PERRL, TM's clear, nares clear, oropharynx normal. Neck - supple, no adenopathy, thyromegaly or mass. Lungs - clear with good breath sounds, no wheezing. Heart - RRR, no murmur. Neuro - alert, oriented. Assessment/Plan 1.Loss of weight STATUS: new problem, now resolved. DATA: hx & weightsreviewed. GOAL: Maintain stable body weight. PLAN: his weight is going back up, so this supports our belief that this is not due to any serious etiology. Cont current monitoring. 2.Generalized osteoarthritis Refill Voltaren gel. 3.Chronic kidney disease (CKD) Reviewed recent labs, showing GFR improved. Return in 6 months. Problem List/Past Medical History Ongoing Acute bilateral back pain Acute gout Ankle edema Ascending aortic aneurysm Atypical pneumonia Bacterial pneumonia Cellulitis Chronic cough Chronic kidney disease (CKD) COVID-19 OVIEDO (dyspnea on exertion) Edema Enlarged prostate without lower urinary tract symptoms (luts) Esophageal reflux Generalized osteoarthritis HTN (hypertension) HTN (hypertension) Hyperlipidemia Insomnia Loss of weight Lower urinary tract symptoms Memory loss Neuropathy Neuropathy of lower extremity JANIE (obstructive sleep apnea) PND (post-nasal drip) Post-nasal drip Prediabetes Renal mass Renal mass RLS (restless legs syndrome) Toenail fungus Tongue ulcer Historical AK (actinic keratosis) Lipoma of skin SK (seborrheic keratosis) Tachycardia Procedure/Surgical History Joint injection (02/08/2022)Injection into shoulder joint (12/14/2021)X-ray tomography of right shoulder (12/14/2021)X-ray tomography of lumbar spine (12/09/2021)Colonoscopy (10/10/2021)CXR - Chest X-ray (10/28/2020)Colonoscopy (01/14/2018)Shave biopsy and cauterization of skin (09/23/2015)Partial nephrectomy (08/06/2007)shoulder surgerycarpal tunnel releaseTonsillectomy and adenoidectomyNasal septoplasty Medications albuterol(ProAir HFA 90 mcg/inh inhalation aerosol), 1 puff, inhaled, qid, PRN, 1 refills aspirin(aspirin 81 mg oral tablet), 81 mg= 1 tab, PO, Daily cholecalciferol(Vitamin D3 5000 intl units oral capsule), 5000 Int_Unit= 1 cap, PO, Daily diclofenac topical(diclofenac 1% topical gel), 2 g, topical, qid, PRN, 3 refills dilTIAZem(DilTIAZem (Eqv-Cardizem CD) 120 mg/24 hours oral capsule, extended release), See Instructions finasteride(finasteride 5 mg oral tablet), See Instructions fluticasone nasal(Flonase 50 mcg/inh nasal spray), 100 mcg= 2 spray, intranasal, Daily, 3 refills gabapentin(gabapentin 600 mg oral tablet), 600 mg= 1 tab, PO, tid, 3 refills multivitamin, 1 tab, PO, Daily multivitamin(B-Complex 50 oral tablet), 1 tab, PO, Daily omeprazole(omeprazole 20 mg oral delayed release capsule), See Instructions pramipexole(pramipexole 0.5 mg oral tablet), See Instructions, 3 refills pravastatin(pravastatin 20 mg oral tablet), See Instructions tamSULOsin(tamsulosin 0.4 mg oral capsule), See Instructions telmisartan(Micardis 80 mg oral tablet), 80 mg= 1 tab, PO, Daily, 3 refills traMADol(traMADol 50 mg oral tablet), 50 mg= 1 tab, PO, q4h, PRN traZODone(traZODone 100 mg oral tablet), See Instructions Allergies Dust miteupper resp symptoms No Known Medication Allergies Social History Smoking Status Never smoked cigarettes Alcohol Use:Current Type:Beer Frequency:1-2 times per month Employment/School Status:Retired Exercise Exercise type:Walking Tobacco Use:Former smoker Started at age:16Years Stopped at age:37Years Family History Heart disease: PGF. Hypertension: Mother. Kidney cancer, primary, with metastasis from kidney to other site....: Mother. Stroke: PGF. 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[employer] Corona zoster vaccine live 07/2014 Recorded pneumococcal 23-valent vaccine 01/29/2013 Recorded tetanus/diphtheria/pertuss, acel (Tdap) 01/29/2013 Recorded Recommendations Health Maintenance Pending(in the next year) OverDue Medicare Annual Wellness Visit due02/28/22and every 1year Adult Influenza Vaccine due03/31/22and every 1year Body Mass Index due01/25/23and every 1year Due Adult COVID-19 Vaccination due03/07/23Unknown Frequency Falls Plan of Care due03/07/23Unknown Frequency Shingles Vaccine due03/07/23One-time only Satisfied(in the past 1 year) Satisfied Diabetes Management A1c on03/05/23.Satisfied by Contributor_system, [employer] Lipid Screening on03/05/23.Satisfied by Contributor_system, [id number] Electronic Signature on File Electronically Reviewed/Signed by: Moni Pickett MD Author Signature Dt/Tm:03/07/2023 01:20 PM Senior Receptionist [facility] [address] [address] [facility] Patient Care team information Care Team Personnel Name: MD Pickett Amy L Position: Physician - Family Med Member Role: Primary Care Provider Address: Address: [address] [place] [address] [place] Name: MD Patino Claudia J Position: Physician - Radiologist Member Role: Lifetime Relationship Address: Address: [address] [place] [address] [place] Name: DREW Schmidt Lynn Position: Physician Bar Roller Exempt - Vasc Surg Member Role: Lifetime Relationship Address: Address: [address] [place] [address] [place] Care Team Related Persons Name: ANTWON LOCKETT Address: home [facility] [place] [phone] Name: CALVIN LOCKETT Address: home [address] [place], [phone]
--- OUTSIDE RECORDS SUMMARY | 2023-08-14 20:34 | External Medical Summary | Continuity of Care Document ---
Author Name Unknown Organization [facility] [address] Address [address] [place], [place] [id number] Care Team Providers Care Director Strategic Account Management Name Role Phone Moni Pickett Primary Care Physician [phone] [facility]counter [id number] Date(s): 03/05/23 - 03/05/23 [facility] [address] [facility] [address], [address] [place], [phone] Encounter Diagnosis Prediabetes(Final) - Hyperlipidemia, unspecified(Final) - Abnormal weight loss(Final) - Discharge Disposition: Home or Self Care Attending Physician: MD Pickett Amy L Referring Physician: MD Pickett Amy L Allergies, Adverse Reactions, Alerts No Known Medication Allergies Substance Reaction Severity Status Dust mite upper resp symptoms Active Immunizations Given and Recorded Vaccine Date Status [...] pneumococcal 23-valent vaccine 01/29/13 Recorded 1Result Comment: [facility]- pt stated 2Result Comment: 2021-12-27: Historical information-source unspecified 3Result Comment: Route: Unknown 4Result Comment: 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[employer] 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 aspirin 81 mg oral tablet 81 mg, 1 tab, PO, Daily, 0, 0, 07/29/07 10:59:18, current medication from another provider, [id number], Constant Indicator Start Date: 07/29/07 Status: Ordered B-Complex 50 oral tablet Start: 07/17/19 10:58:00 EDT, 1 tab, PO, Daily Start Date: 07/17/19 Status: Ordered diclofenac 1% topical gel Start: 03/07/23 13:06:00 EDT, 2 g =, topical, qid, Disp# 100 g, Refills: 3, not to exceed 16 grams/day/single joint of lower extremities, PRN: Pain, Pharmacy: [facility] Start Date: 03/07/23 Status: Ordered diclofenac 1% topical gel Start: 03/07/23 15:45:00 EDT, 2 g =, topical, qid, Disp# 100 g, Refills: 3, not to exceed 16 grams/day/single joint of lower extremities, PRN: Pain, Pharmacy: [facility] Start Date: 03/07/23 Status: Ordered DilTIAZem (Eqv-Cardizem CD) 120 mg/24 hours oral capsule, extended release Start: 03/13/22 9:51:00 EDT, See Instructions, Disp# 90 cap, Refills: 3, TAKE 1 CAPSULE DAILY, Pharmacy: [facility] Start Date: 03/13/22 Status: Ordered finasteride 5 mg oral tablet Start: 01/09/23 12:57:00 EDT, See Instructions, Disp# 90 tab, Refills: 3, TAKE 1 TABLET DAILY, Pharmacy: [facility] Start Date: 01/09/23 Status: Ordered Flonase 50 mcg/inh nasal spray Start: 12/14/22 17:08:00 EDT, 2 spray, intranasal, Daily, Disp# 16 g, Refills: 3, Pharmacy: [facility] Start Date: 12/14/22 Status: Ordered gabapentin 600 mg oral tablet Start: 12/15/22 9:56:00 EDT, 1 tab, PO, tid, Disp# 270 tab, Refills: 3, Pharmacy: [facility] Start Date: 12/15/22 Status: Ordered Micardis 80 mg oral tablet Start: 12/15/22 10:05:00 EDT, 1 tab, PO, Daily, Disp# 90 tab, Refills: 3, [facility] Start Date: 12/15/22 Status: Ordered multivitamin Start: 09/29/11 15:10:00 EST, 1 tab, PO, Daily, tab Start Date: 09/29/11 Status: Ordered omeprazole 20 mg oral delayed release capsule See Instructions, Disp# 90 cap, Refills: 3, TAKE 1 CAPSULE DAILY, Pharmacy: [facility] Start Date: 07/14/21 Status: Ordered pramipexole 0.5 mg oral tablet Start: 10/10/22 12:53:00 EST, See Instructions, Disp# 90 tab, Refills: 3, TAKE 1 TABLET DAILY, Pharmacy: [facility] Start Date: 10/10/22 Status: Ordered pravastatin 20 mg oral tablet Start: 06/26/22 20:51:00 EDT, See Instructions, Disp# 90 tab, Refills: 3, TAKE 1 TABLET DAILY, Pharmacy: [facility] Start Date: 06/26/22 Status: Ordered ProAir HFA 90 mcg/inh inhalation aerosol Start: 07/25/22 11:46:00 EDT, 1 puff, inhaled, qid, Disp# 18 g, Refills: 1, PRN: as needed for wheezing, Pharmacy: [id number] Start Date: 07/25/22 Status: Ordered tamsulosin 0.4 mg oral capsule Start: 05/26/22 10:15:00 EDT, See Instructions, Disp# 180 cap, Refills: 3, TAKE 2 CAPSULES DAILY, Pharmacy: [facility] Start Date: 05/26/22 Status: Ordered traMADol 50 mg oral tablet Start: 04/09/18 10:59:00 EDT, 1 tab, PO, q4h, PRN: as needed for pain Start Date: 04/09/18 Status: Ordered traZODone 100 mg oral tablet Start: 01/02/23 20:56:00 EDT, See Instructions, Disp# 90 tab, Refills: 3, TAKE 1 TABLET AT BEDTIME,Pharmacy: [facility] Start Date: 01/02/23 Status: Ordered Vitamin D3 5000 intl units oral capsule Start: 07/17/19 9:07:00 EDT, 1 cap, PO, Daily Start Date: 07/17/19 Status: Ordered Problem List Condition Confirmation Course Effective Dates [...] Confirmed Active Loss of weight Confirmed Active Procedures Procedure Date Related Diagnosis Body Site [...] Tonsillectomy and adenoidectomy Completed 1UOC Right shoulder [address] [place] [address] Impression: 1. No acute fracture or abnormality. [...] partial nephrectomy 9left hand 10-29-2012 left shoulder Results Laboratory List Name Date Comprehensive Metabolic Panel (COMP META B PANEL) 03/05/23 Hemoglobin A1C (HEMOGLOBIN, A1C) 03/05/23 Lipid Profile (LIPOPROTEINS) 03/05/23 Thyroid Stimulating Hormone (TSH) 03/05/23 Most recent to oldest [Reference Range]: 1 eGFR CKD-EPI [>60 mL/min/1.73 m2] 58 mL/ min/1.73 m2 1 *LOW* (03/05/23 9:58 AM) Estimated Average Glucose 114 mg/dL (03/05/23 9:58 AM) Non-HDL 113 mg/dL 2 (03/05/23 9:58 AM) Estimated CrCl 57.56 mL/min (03/05/23 10:39 AM) Anion Gap [5-14 mmol/L] 4 mmol/L *LOW* (03/05/23 9:58 AM) Alb [3.5-5.0 g/dL] 4.2 g/dL (03/05/23 9:58 AM) Alk Phos [38-126 unit/L] 65 unit/L (03/05/23 9:58 AM) ALT [<50 unit/L] 28 unit/L (03/05/23 9:58 AM) AST [15-46 unit/L] 32 unit/L (03/05/23 9:58 AM) BUN [7-20 mg/dL] 24 mg/dL *HI* (03/05/23 9:58 AM) Ca [8.4-10.2 mg/dL] 9.2 mg/dL (03/05/23 9:58 AM) Chol/HDL 3 (03/05/23 9:58 AM) Chol [125-200 mg/dL] 165 mg/dL (03/05/23 9:58 AM) Cl- [96-107 mmol/L] 108 mmol/L *HI* (03/05/23 9:58 AM) HCO3 [22-30 mmol/L] 28 mmol/L (03/05/23 9:58 AM) Cret [0.70-1.30 mg/dL] 1.29 mg/dL (03/05/23 9:58 AM) HbA1c 5.6 % 3 (03/05/23 9:58 AM) Glu [74-106 mg/dL] 106 mg/dL (03/05/23 9:58 AM) HDL [>35 mg/dL] 52 mg/dL (03/05/23 9:58 AM) K [3.5-5.1 mmol/L] 4.4 mmol/L (03/05/23 9:58 AM) LDL Chol, Calculated [50-130 mg/dL] 84 m g/dL (03/05/23 9:58 AM) Na [137-145 mmol/L] 140 mmol/L (03/05/23 9:58 AM) T Bili [0.2-1.3 mg/dL] 0.8 mg/dL (03/05/23 9:58 AM) Prot [6.3-8.2 g/dL] 7.1 g/dL (03/05/23 9:58 AM) TG [<200 mg/dL] 144 mg/dL (03/05/23 9:58 AM) TSH [0.47-4.68 uIU/mL] 1.36 uIU/mL 4 (03/05/23 9:58 AM) 1Result Comment: Testing Performed By: Dept of Pathology [facility], [address] [place] [address] 2Result Comment: Testing Performed By: Dept of Pathology [facility], [address] [place] [id number] 3Result Comment: ADA Recommended [place] Reference Range: Normal: <5.7% Prediabetes: 5.7-6.4% Diabetes: >6.4% 4Result Comment: Testing Performed By: Dept of Pathology [address] [address] Social History Social History Type Response Tobacco Former smoker, Start ed age 16 Years. Stopped age 37 Years. 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
--- OUTSIDE RECORDS SUMMARY | 2023-08-16 04:41 | External Medical Summary | Continuity of Care Document ---
Author Name Unknown Organization [address] Address [address] [place], [place] [id number] Care Team Providers Care Volleyball Assistant Coach Name Role Phone Moni Pickett Primary Care Physician [phone] Encounter [facility] [id number] Date(s): 08/10/23 - 08/10/23 [facility] [address], [address] [place] [address] [phone] Discharge Disposition: Home or Self Care Attending Physician: DREW Schmidt Lynn Referring Physician: DREW Schmidt Lynn Allergies, Adverse Reactions, Alerts No Known Medication Allergies Substance Reaction Severity Status Dust mite upper resp symptoms Active Immunizations Given and Recorded Vaccine Date Status Refusal Reason influenza virus vaccine, inactivated 07/23/23 Sam rded influenza virus vaccine, inactivated 06/16/22 Give n influenza virus vaccine, inactivated 06/21/21 Give n influenza virus vaccine, inactivated 1 06/21/20 Re corded RSV Vaccine Unspecified 07/23/23 Recorded SARS-CoV-2 (COVID-19) mRNA-1273 vaccine 2 03/31/21 Recorded pneumococcal 13-valent vaccine 3 12/24/18 Recorded tetanus/diphtheria/pertuss, acel (Tdap) 4 04/01/17 Recorded tetanus/diphtheria/pertuss, acel (Tdap) 01/29/13 R ecorded zoster vaccine live 07/01/14 Recorded pneumococcal 23-valent vaccine 01/29/13 Recorded 1Result Comment: [facility]- pt stated 2Result Comment: 2021-12-27: Historical information-source unspecified 3Result Comment: Route: Unknown 4Result Comment: Unit: Unknown 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 [place] Medications aspirin 81 mg oral tablet 81 mg, 1 tab, PO, Daily, 0, 0, 07/29/07 10:59:18, current medication from another provider, [id number], Constant Indicator Start Date: 07/29/07 Status: Ordered B-Complex 50 oral tablet Start: 07/17/19 10:58:00 EDT, 1 tab, PO, Daily Start Date: 07/17/19 Status: Ordered diclofenac 1% topical gel Start: 03/07/23 13:06:00 EDT, 2 g =, topical, qid, Disp# 100 g, Refills: 3, not to exceed 16 grams/day/single joint of lower extremities, PRN: Pain, Pharmacy: [facility] Start Date: 03/07/23 Status: Ordered diclofenac 1% topical gel Start: 03/07/23 15:45:00 EDT, 2 g =, topical, qid, Disp# 100 g, Refills: 3, not to exceed 16 grams/day/single joint of lower extremities, PRN: Pain, Pharmacy: [facility] Start Date: 03/07/23 Status: Ordered DilTIAZem (Eqv-Cardizem CD) 120 mg/24 hours oral capsule, extended release Start: 04/05/23 8:45:00 EDT, See Instructions, Disp# 90 cap, Refills: 3, TAKE 1 CAPSULE DAILY, Pharmacy: [facility] Start Date: 04/05/23 Status: Ordered finasteride 5 mg oral tablet Start: 01/09/23 12:57:00 EDT, See Instructions, Disp# 90 tab, Refills: 3, TAKE 1 TABLET DAILY, Pharmacy: [facility] Start Date: 01/09/23 Status: Ordered Flonase 50 mcg/inh nasal spray Start: 12/14/22 17:08:00 EDT, 2 spray, intranasal, Daily, Disp# 16 g, Refills: 3, Pharmacy: [facility] Start Date: 12/14/22 Status: Ordered gabapentin 600 mg oral tablet Start: 12/15/22 9:56:00 EDT, 1 tab, PO, tid, Disp# 270 tab, Refills: 3, Pharmacy: [facility] Start Date: 12/15/22 Status: Ordered Micardis 80 mg oral tablet Start: 12/15/22 10:05:00 EDT, 1 tab, PO, Daily, Disp# 90 tab, Refills: 3, Pharmacy: [facility] Start Date: 12/15/22 Status: Ordered multivitamin Start: 09/29/11 15:10:00 EST, 1 tab, PO, Daily, tab Start Date: 09/29/11 Status: Ordered omeprazole 20 mg oral delayed release capsule Start: 03/12/23 16:35:00 EDT, See Instructions, Disp# 90 cap, Refills: 3, TAKE 1 CAPSULE DAILY, Pharmacy: [id number] Start Date: 03/12/23 Status: Ordered pramipexole 0.5 mg oral tablet Start: 10/10/22 12:53:00 EST, See Instructions, Disp# 90 tab, Refills: 3, TAKE 1 TABLET DAILY, Pharmacy: [facility] Start Date: 10/10/22 Status: Ordered pravastatin 20 mg oral tablet Start: 06/26/22 20:51:00 EDT, See Instructions, Disp# 90 tab, Refills: 3, TAKE 1 TABLET DAILY, Pharmacy: [facility] Start Date: 06/26/22 Status: Ordered ProAir HFA 90 mcg/inh inhalation aerosol Start: 07/25/22 11:46:00 EDT, 1 puff, inhaled, qid, Disp# 18 g, Refills: 1, PRN: as needed for wheezing, Pharmacy: [id number] Start Date: 07/25/22 Status: Ordered tamsulosin 0.4 mg oral capsule Start: 05/26/22 10:15:00 EDT, See Instructions, Disp# 180 cap, Refills: 3, TAKE 2 CAPSULES DAILY, Pharmacy: [facility] Start Date: 05/26/22 Status: Ordered traMADol 50 mg oral tablet Start: 04/09/18 10:59:00 EDT, 1 tab, PO, q4h, PRN: as needed for pain Start Date: 04/09/18 Status: Ordered traZODone 100 mg oral tablet Start: 01/02/23 20:56:00 EDT, See Instructions, Disp# 90 tab, Refills: 3, TAKE 1 TABLET AT BEDTIME,Pharmacy: [facility] Start Date: 01/02/23 Status: Ordered [...] Tonsillectomy and adenoidectomy Completed 1UOC Right shoulder [address] [place] [address] Impression: 1. No acute fracture or abnormality. [...] partial nephrectomy 9left hand 10-29-2012 left shoulder Social History Social History Type Response Tobacco Former smoker, Start ed age 16 Years. Stopped age 37 Years. Smoking Status Never smoked cigaret segundo Sex Male Patient Care team information Care Team Personnel Name: MD Piyush, Moni Steve Position: Physician - Family Med Member Role: Primary Care Provider Address: Address: [address] [place] [id number] [place] Name: MD Patino Claudia J Position: Physician - Radiologist Member Role: Lifetime Relationship Address: Address: [address] [place] [id number] [place] Name: DREW Schmidt Lynn Position: Physician Optics Test Technician Exempt - Vasc Surg Member Role: Lifetime Relationship Address: Address: [address] [place] [address] [place] Care Team Related Persons Name: ANTWON LOCKETT Address: home [address] [place] [id number] Name: CALVIN LOCKETT Address: home [address] [place], [id number]
== END 2023-08-14 11:38 | disposition home or self-care (01) ==
LOC: ED 10:20 → EDINP 10:20 → SUATTDRO 12:45 → 3W 17:55
DX: B96.20 Unspecified Escherichia coli [E. coli] as the cause of diseases classified elsewhere; I10 Essential (primary) hypertension; Z79.82 Long term (current) use of aspirin; Z90.5 Acquired absence of kidney; N39.0 Urinary tract infection, site not specified; Z91.09 Other allergy status, other than to drugs and biological substances; Z85.528 Personal history of other malignant neoplasm of kidney; N43.3 Hydrocele, unspecified; D72.829 Elevated white blood cell count, unspecified; Z79.899 Other long term (current) drug therapy; N45.3 Epididymo-orchitis; Z87.891 Personal history of nicotine dependence

== ENCOUNTER 2024-09-01 10:56 | Inpatient (IN) ==
[2024-09-01] MEDS ORDERED: VANCOMYCIN CONSULT ACTIVE PRN ×2 (11:37→15:58)
--- NOTE | 2024-09-01 11:37 | Emergency Department Note ---
Impression & Plan Cellulitis, CANDELARIO (acute kidney injury), Elevated BUN ED Provider Note NAME: HAZEL LOCKETT AGE: 79 SEX: M : 1945 ARRIVES VIA: Walk-In INFORMANT: Patient ED PROVIDER(S): Chang Craven DO CHIEF COMPLAINT: Left foot worsening redness on antibiotics HPI: Patient is a 79-year-old male with a past medical history of cellulitis, hypertension, insomnia, memory loss who presents to the ER as around the of last month per the who is present bedside and provides additional history he walked into a snowplow. He was seen by PCP and from the ER and placed on Keflex. He has been taking this but in the past 24 hours his foot has become more red swollen and tender. He notes his marie is becoming redder. Denies any fevers. No headache or change in vision. No chest pain or shortness of breath. No dysuria, urgency, or frequency. No other exacerbating or remitting factors. ADDITIONAL HISTORY OBTAINED: Per HPI Chronic Medical/Social Conditions Affecting Care: Per HPI PAST MEDICAL HISTORY:See Below PAST SURGICAL HISTORY:See Below FAMILY HISTORY:See Below SOCIAL HISTORY:See Below HOME MEDICATIONS:See Below ALLERGIES:See Below VITALS:See Below PHYSICAL EXAMINATION: GENERAL: Sitting up in bed, alert, well appearing, well nourished, no distress, non-toxic EYE EXAM: normal conjunctiva. OROPHARYNX: no exudate, no erythema, lips, buccal mucosa, and tongue normal and mucous membranes are moist NECK: supple, no nuchal rigidity, no adenopathy, non-tender LUNGS: Clear to auscultation. Normal chest wall mechanics HEART: no murmurs, S1 normal and S2 normal ABDOMEN: abdomen soft, non-tender, normo-active bowel sounds, no masses, no rebound or guarding. BACK: Back is symmetrical on inspection and there is no deformity, no midline tenderness, no CVA tenderness. SKIN: no rashes and no bruising UPPER EXTREMITIES: upper extremities are grossly normal. LOWER EXTREMITIES: Left lower extremity with pitting edema and redness over the dorsal aspect of the foot with swelling tracking up through the marie. Skin is warm and tender. NEURO EXAM: Normal sensorium, cranial nerves II-XII grossly intact, normal speech, no gross weakness of arms, no gross weakness of legs. MEDICAL DECISION MAKING: Patient is a 79-year-old male who presents ER for the below stated complaint. IV was established blood work was obtained. Labs show no significant leukocytosis or anemia. BMP with LFTs bilirubin is unremarkable. Troponin is negative. Lipase normal. Chest x-ray shows no focal infiltrate. Patient cellulitis has been worsening while on antibiotics. This is failure of outpatient treatment. He was given IV Rocephin and vancomycin I discussed with the hospitalist for further evaluation management treatment. Consults/Care Managements Discussions: Per MDM Triage Nursing notes reviewed. Limited review of prior medical records performed Vital Signs: reviewed and remarkable for HTN Differential diagnosis: Cellulitis, abscess, MRSA infection, DVT, necrotizing fasciitis, dermatitis, drug eruption, allergic reaction, as well as other pathologies. ER treatment provided: See below Diagnostics interpreted by me include EKG and cardiac monitoring as listed below: -Cardiac Monitoring: An order was placed for continuous cardiac monitoring. The monitor shows a rate of 70 with sinus rhythm. -ECG: Sinus rhythm rate of 66 T wave inversion in lead III QTc 415 -Laboratory studies:Interpreted by me as stated above in MDM and shown below. Imaging studies: Xrays: As interpreted by me: Portable AP upright 1 view of the chest shows no focal infiltrate CTs show: none Procedures:none Critical Care: None Past Med/Surg History Problem List (Updated 09/01/24 @ 17:59 by Chang Craven DO) Elevated BUN (Acute) CANDELARIO (acute kidney injury) (Acute) Cellulitis (Acute) CANDELARIO (acute kidney injury) Left leg cellulitis Abrasion of left lower leg with infection Hematoma (Acute) Cellulitis (Acute) Acute pain of left lower extremity (Acute) BPH w urinary obs/LUTS Acute UTI (Acute) Leukocytosis (Acute) Acute orchitis (Acute) Pain in left testicle (Acute) Epididymo-orchitis without abscess Allergic rhinitis with postnasal drip Obesity (BMI 30.0-34.9) Multiple pulmonary nodules Exertional dyspnea Allergic rhinitis Nocturnal hypoxemia Hypertension, essential Hypoxemia (Acute) Pneumonia due to COVID-19 virus (Acute) Lung nodule Vitamin D deficiency disease Benign essential hypertension (Acute) Enlarged prostate without lower urinary tract symptoms (luts) (Acute) Generalized osteoarthritis (Acute) History of malignant neoplasm of kidney (Acute) Hyperlipidemia (Acute) Insomnia (Acute) Internal hemorrhoids (Acute) Memory loss (Acute) Obstructive sleep apnea (Acute) Peripheral neuropathy (Acute) Postnasal drip (Acute) Prediabetes (Acute) Renal/ureteral disease (Acute) Thoracic aortic aneurysm (Acute) Tubular adenoma of colon (Acute) Neuropathy of both feet (Chronic) Medical History Epistaxis Hypophosphatemia Former smoker Surgical History S/P tonsillectomy and adenoidectomy S/P shoulder surgery S/P nasal septoplasty S/P carpal tunnel release S/p nephrectomy Family History Mother Kidney malignancy Grandfather Prostate cancer Myocardial infarction Denies family history of Colon cancer Ovarian cancer Breast cancer Social History Smoking Status: Former smoker Tobacco Type: Cigarettes Second Hand Exposure: No; Do You Dip or Chew Tobacco: No; Hx Alcohol Use: Yes Alcohol type: beer Hx Substance Use: No Preferred Language: Belarusian Communication Ability: Effective Visual Impairment: No Limitations Hearing Ability: Normal Vegetable Scullion Required: No Beliefs That Will Affect Care: None marital status: Current Living Situation: Spouse current occupational status: employed Feels Safe at Home: Yes Childhood Exposure to Second-Hand Smoke: Yes Diet: regular Dental Care, Regularly: Yes Physical Activity Frequency: 5-6 Times per Week Seatbelt Use: always Sunscreen Use: Yes Assistive Devices: None Allergies Allergies Allergy/AdvReac Type Severity Reaction Status Date / Time No Known Drug Allergies Allergy Verified 09/01/24 13:06 house dust mite AdvReac Verified 09/01/24 13:06 Home Meds Home Medications Medication Instructions Recorded Confirmed finasteride 5 mg tablet (Proscar) 5 mg PO QAM 11/15/20 09/01/24 gabapentin 600 mg tablet 600 mg PO .COMPLEX 03/10/21 09/01/24 (Neurontin) aspirin 81 mg tablet,delayed 81 mg PO QAM 05/24/21 09/01/24 release ([place] Low Dose Aspirin) cholecalciferol (vitamin D3) 125 5,000 units PO QAM 05/24/21 09/01/24 mcg (5,000 unit) capsule (Dialyvite Vitamin D) omeprazole 20 mg capsule,delayed 20 mg PO DAILYBB 08/24/21 12/02/24 release pravastatin 10 mg tablet 10 mg PO HS 05/24/21 09/01/24 tamsulosin 0.4 mg capsule (Flomax) 0.8 mg PO HS 05/24/21 09/01/24 diltiazem HCl 120 mg 120 mg PO DAILY 08/11/23 09/01/24 capsule,extended release 24 hr telmisartan 80 1 tab PO DAILY 08/11/23 09/01/24 mg-hydrochlorothiazide 12.5 mg tablet (Micardis HCT) pramipexole 0.5 mg tablet (Mirapex) 0.5 mg PO DAILY 10/08/23 09/01/24 Previous Rx's Medication Instructions Recorded ibuprofen 600 mg tablet 600 mg PO Q8H PRN pain #14 tabs 08/14/23 cefdinir 300 mg capsule 300 mg PO BID 9 days #18 caps 08/29/24 Results & Data (ED) Vital Signs Vital Signs - 24 hr 09/01/24 10:56 09/01/24 11:46 09/01/24 12:27 Temperature 36.6 C Temperature Source Temporal Artery Scan Pulse Rate 83 Pulse Rate [Apical] 63 Respiratory Rate 18 18 Blood Pressure 150/110 H Blood Pressure [Left Arm] 113/71 Blood Pressure Mean 123 Blood Pressure Mean [Left Arm] 85 Pulse Oximetry 93 94 93 Sepsis Recent Fever Within 48 Hours No Sepsis New/Unexplained Change in Mental Status N/A Sepsis Action Taken by Nursing No Action Required 09/01/24 12:29 09/01/24 12:30 09/01/24 12:48 Temperature Temperature Source Pulse Rate 64 62 Pulse Rate [Apical] Respiratory Rate 16 Blood Pressure 105/61 Blood Pressure [Left Arm] Blood Pressure Mean 88 Blood Pressure Mean [Left Arm] Pulse Oximetry Sepsis Recent Fever Within 48 Hours Sepsis New/Unexplained Change in Mental Status Sepsis Action Taken by Nursing 09/01/24 13:00 09/01/24 13:01 09/01/24 13:24 Temperature Temperature Source Pulse Rate 61 62 Pulse Rate [Apical] Respiratory Rate 16 18 Blood Pressure 115/64 Blood Pressure [Left Arm] Blood Pressure Mean 97 Blood Pressure Mean [Left Arm] Pulse Oximetry Sepsis Recent Fever Within 48 Hours Sepsis New/Unexplained Change in Mental Status Sepsis Action Taken by Nursing Laboratory Data 09/01/24 11:25 09/01/24 11:25 Lab Results 12/02/24 Range/Units 11:25 WBC 8.46 (4.8-10.8) K/ul RBC 4.90 (4.70-6.10) M/uL Hgb 15.3 (14.0-18.0) g/dl Hct 44.2 (42.0-52.0) % MCV 90.2 (80.0-100.0) fL MCH 31.2 (25.0-34.0) pg MCHC 34.6 (32.0-36.0) g/dL RDW Std Deviation 40.3 (36.4-46.3) fL RDW Coeff of Linda 12.3 (11.5-14.5) % Plt Count 191 (130-400) K/uL MPV 10.2 (9.4-12.4) fL Immature Gran % (Auto) 0.2 % Neut % (Auto) 65.7 % Lymph % (Auto) 22.2 % [place] % (Auto) 9.9 % Eos % (Auto) 1.5 % Baso % (Auto) 0.5 % Neut # (Auto) 5.55 (1.40-6.50) K/uL Lymph # (Auto) 1.88 (1.20-3.40) K/uL [place] # (Auto) 0.84 H (0.11-0.59) K/uL Eos # (Auto) 0.13 (0.00-0.50) K/uL Baso # (Auto) 0.04 (0.00-0.20) K/uL Immature Gran # (Auto) 0.02 (0.01-0.20) K/uL ESR 50 H (0-20) mm/hr Sodium 138 (136-145) mmol/L Potassium 4.0 (3.5-5.1) mmol/L Chloride 104 (98-107) mmol/L Carbon Dioxide 26 (21-32) mmol/L Anion Gap 8 (3-11) BUN 31 H (6-23) mg/dl Creatinine 1.41 H (0.6-1.4) mg/dl Est Cr Clr Drug Dosing 51.9 ml/min eGFR 51.33 BUN/Creatinine Ratio 22.0 H (10-20) Glucose 108 H (70-99(Fasting)) mg/dl Calcium 9.3 (8.6-10.3) mg/dl Total Bilirubin 1.3 H (0.2-1.0) mg/dl AST 19 (13-39) U/L ALT 26 (7-52) U/L Alkaline Phosphatase 55 (34-104) U/L Troponin I High Sens 6.6 (0-20) pg/ml C-Reactive Protein 13.56 H (0-0.5) mg/dl Total Protein 7.5 (6.0-8.3) gm/dl Albumin 4.0 (3.4-5.0) gm/dl Globulin 3.5 (2.5-4.0) gm/dl Albumin/Globulin Ratio 1.1 (0.9-2) Lipase 10 L (11-82) U/L Administered Medications Discontinued Medications Ceftriaxone Sodium (Rocephin) 2,000 mg in 50 mls @ 100 mls/hr IV NOW STA Stop: 09/01/24 12:03 Last Infusion: 09/01/24 12:23 Dose: Infused Documented By: Admin: 09/01/24 11:39 Dose: 100 mls/hr Documented By: LUKASZ Vancomycin HCl 2,100 mg/ (Sodium Chloride) 542 mls @ 200 mls/hr IV NOW ONE Stop: 09/01/24 14:19 Last Admin: 09/01/24 12:49 Dose: Not Given Documented By: LUKASZ Vancomycin HCl 2,250 mg/ (Sodium Chloride) 545 mls @ 200 mls/hr IV NOW ONE Stop: 09/01/24 14:43 Last Infusion: 09/01/24 16:13 Dose: Infused Documented By: Admin: 09/01/24 12:22 Dose: 200 mls/hr Documented By: LUKASZ Imaging Data Radiologist's Impression: Chest X-Ray 09/01/24 11:34 XR chest 1V portable HISTORY: 79 years-old Male Chest pain, nonspecific COMPARISON: 10/28/2021 TECHNIQUE: AP view of the chest FINDINGS: Cardiac silhouette is enlarged. Lungs appear clear. No pneumothorax or pleural effusion. Healed chronic left-sided rib fractures. IMPRESSION: No acute process of the chest. ACT 112: Negative or not required by law. The above report was generated using voice recognition software. It may contain grammatical, syntax or spelling errors. Electronically signed by: Young Durán M.D. 09/01/2024 12:05 PM Discharge Plan Visit Data Chief Complaint: Swelling/Edema to Extremity Stated Complaint: EDEMA IN LT ANKLE/MARIE ED Provider: Chang Craven Discharge Problem: Cellulitis, CANDELARIO (acute kidney injury), Elevated BUN Patient Disposition: Admitted As Inpatient Discharge Instructions Interventions: ED Discharge Assessment Last Done: 09/01/24 17:04 Discharge Problem: Cellulitis Qualifiers: Site of cellulitis: unspecified site Qualified Code(s): L03.90 - Cellulitis, unspecified
[2024-09-01] MEDS: cefTRIAXone SODIUM 2,000 MG/50 ML BAG IV STA (11:39)
[2024-09-01 11:53] LABS: Basophils # (auto) 0.04 K/uL (0.00-0.20); Basophils % (auto) 0.5 %; Eosinophils # (auto) 0.13 K/uL (0.00-0.50); Eosinophils % (auto) 1.5 %; Hematocrit (blood only) 44.2 % (42.0-52.0); Hemoglobin 15.3 g/dl (14.0-18.0); Immature Granulocytes # (auto) 0.02 K/uL (0.01-0.20); Immature Granulocytes % (auto) 0.2 %; Lymphocytes # (auto) 1.88 K/uL (1.20-3.40); Lymphocytes % (auto) 22.2 %; Mean Corpuscular Hemoglobin 31.2 pg (25.0-34.0); Mean Corpuscular Hgb Conc 34.6 g/dL (32.0-36.0); Mean Corpuscular Volume 90.2 fL (80.0-100.0); Mean Platelet Volume 10.2 fL (9.4-12.4); Monocytes # (auto) 0.84 K/uL (0.11-0.59); Monocytes % (auto) 9.9 %; Neutrophils # (auto) 5.55 K/uL (1.40-6.50); Neutrophils % (auto) 65.7 %; Platelet Count 191 K/uL (130-400); RDW Coefficient of Variation 12.3 % (11.5-14.5); RDW Standard Deviation 40.3 fL (36.4-46.3); White Blood Count 8.46 K/ul (4.8-10.8)
--- NOTE | 2024-09-01 12:06 | XRay Report ---
XR chest 1V portable HISTORY: 79 years-old Male Chest pain, nonspecific COMPARISON: 10/28/2021 TECHNIQUE: AP view of the chest FINDINGS: Cardiac silhouette is enlarged. Lungs appear clear. No pneumothorax or pleural effusion. Healed chron ic left-sided rib fractures. IMPRESSION: No acute process of the chest. ACT 112: Negative or not required by law. The above report was generated using voice recognition software. It may contain grammatical, syntax o r spelling errors. Electronically signed by: Young Durán M.D. 09/01/2024 12:05 PM
[2024-09-01 12:16] LABS: Albumin Globulin Ratio 1.1 (0.9-2); Bilirubin,Total 1.3 mg/dl (0.2-1.0); Calcium 9.3 mg/dl (8.6-10.3); Creatinine Clr Calc Pharmacy 51.9 ml/min; Globulin 3.5 gm/dl (2.5-4.0); Total Protein 7.5 gm/dl (6.0-8.3)
[2024-09-01 12:20] LABS: Troponin I High Sensitivity 6.6 pg/ml (0-20)
[2024-09-01] MEDS: VANCOMYCIN HCL 2,250 MG in SODIUM CHLORIDE 0.9% 500 ML IV ONE (12:22)
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
[2024-09-01] MEDS: SODIUM CHLORIDE 0.9% IV ONE (12:49)
[2024-09-01] MEDS: VANCOMYCIN HCL IV ONE (12:49)
[2024-09-01 13:40] LABS: C Reactive Protein 13.56 mg/dl (0-0.5)
--- NOTE | 2024-09-01 15:43 | Electrocardiogram Report ---
Test Reason : Blood Pressure : */* mmHG Vent. Rate : 66 BPM Atrial Rate : 66 BPM P-R Int : 164 ms QRS Dur : 100 ms QT Int : 396 ms P-R-T Axes : 29 -22 1 degrees QTcB Int : 415 ms Normal sinus rhythm Minimal voltage criteria for LVH, may be normal variant ( R in aVL ) Borderline ECG When compared with ECG of 24-May-2021 10:24, No significant change was found Confirmed by Kwame Heck ([id number]) on 09/01/2024 3:43:15 PM Referred By: REFERRED SELF Confirmed By: Kwame Heck
[2024-09-01] MEDS ORDERED: ONDANSETRON INJ 2 MG/ML 2 ML VIAL IV PRN (15:58)
[2024-09-01] MEDS ORDERED: MELATONIN 3 MG TAB PO PRN (15:58)
[2024-09-01] MEDS: ACETAMINOPHEN 325 MG TAB PO PRN (18:33)
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
[2024-09-01] MEDS: PRAVASTATIN SOD 10 MG TAB PO SCH (20:58)
[2024-09-01] MEDS: GABAPENTIN 600 MG TAB PO SCH (20:58)
[2024-09-01] MEDS: VANCOMYCIN HCL 1,500 MG in SODIUM CHLORIDE 0.9% 500 ML IV SCH (20:59)
[2024-09-01] MEDS: TAMSULOSIN HCL 0.4 MG CAP PO SCH (20:59)
[2024-09-01] MEDS ORDERED: HEPARIN SOD 5,000 UNIT/0.5 ML VIAL SQ SCH (21:00)
[2024-09-01] MEDS: oxyCODONE HCL IR 5 MG TAB (IMMEDIATE RELEASE) PO PRN (21:03)
[2024-09-01] MEDS: COUGH DROP (SUGAR FREE) LOZ 24 LOZ/1 BOX BUCCAL PRN (23:03)
[2024-09-02] MEDS ORDERED: VANCOMYCIN HCL 1,750 MG in SODIUM CHLORIDE 0.9% 500 ML IV SCH (00:30)
[2024-09-02] MEDS: FLUTICASONE PROPIONATE NA SPR 16 GM BTL PRN (00:53)
[2024-09-02] MEDS: PANTOprazole 40 MG TAB PO SCH (05:30)
--- NOTE | 2024-09-02 06:36 | Orthopedic Progress Note ---
Date of Service September 02, 2024 Assessment & Plan (1) Left leg cellulitis: Swelling and pain seemed improved slightly with elevation and compression compared to yesterday. Continue antibiotics for cellulitis per hospitalist service. Will discuss with Dr Gaspar and continue to follow Subjective . Patient seen this morning around 6:30am. Sleeping with cpap on. Leg pain slightly improved from yesterday. Review of Systems All systems reviewed & are unremarkable except as noted in HPI & below. Physical Exam . NAD Left leg: Compression stocking on. Swelling seems improved some from yesterday. Still very tender anterior lower leg. +erythema. Able to dorsiflex,plantarflex, move toes without pain. Tender on plantar side of 1st mtp joint. Palpable dorsal is pedic pulse. Results & Data Results & Data Laboratory Results . Diagnostic Findings . PG Care Time/CCT Total # of Minutes Spent Total Time Spent with Patient: Total time spent is greater than 50% in coordination of care (as documented) at patient's floor/unit and/or counseling patient: Coding Level of Care Code 54944 SUB INP/OBS CARE 2/35MIN Diagnoses Left leg cellulitis L03.116
[2024-09-02] MEDS: GABAPENTIN 600 MG TAB PO SCH (07:49)
[2024-09-02] MEDS: dilTIAZem HCL 120 MG CAPCR PO SCH (07:49)
[2024-09-02] MEDS: PRAMIPEXOLE DIHYDROCHLO 0.5 MG TAB PO SCH (07:49)
[2024-09-02] MEDS: FINASTERIDE 5 MG TAB PO SCH (07:50)
[2024-09-02] MEDS ORDERED: ASPIRIN 81 MG ECTAB PO SCH (09:00)
[2024-09-02 09:41] LABS: Basophils # (auto) 0.04 K/uL (0.00-0.20); Basophils % (auto) 0.5 %; Eosinophils # (auto) 0.19 K/uL (0.00-0.50); Eosinophils % (auto) 2.5 %; Hematocrit (blood only) 38.8 % (42.0-52.0); Hemoglobin 13.2 g/dl (14.0-18.0); Immature Granulocytes # (auto) 0.04 K/uL (0.01-0.20); Immature Granulocytes % (auto) 0.5 %; Lymphocytes # (auto) 2.55 K/uL (1.20-3.40); Lymphocytes % (auto) 33.3 %; Mean Corpuscular Hemoglobin 31.1 pg (25.0-34.0); Mean Corpuscular Volume 91.3 fL (80.0-100.0); Mean Platelet Volume 10.6 fL (9.4-12.4); Monocytes # (auto) 0.98 K/uL (0.11-0.59); Monocytes % (auto) 12.8 %; Neutrophils # (auto) 3.86 K/uL (1.40-6.50); Neutrophils % (auto) 50.4 %; Platelet Count 172 K/uL (130-400); RDW Coefficient of Variation 12.2 % (11.5-14.5); RDW Standard Deviation 40.8 fL (36.4-46.3); Red Blood Count 4.25 M/uL (4.70-6.10); White Blood Count 7.66 K/ul (4.8-10.8)
[2024-09-02 09:43] LABS: BUN Creatinine Ratio 17.7 (10-20); C Reactive Protein 8.99 mg/dl (0-0.5); Calcium 8.6 mg/dl (8.6-10.3); Creatinine Clr Calc Pharmacy 59.3 ml/min; Potassium 4.1 mmol/L (3.5-5.1)
--- NOTE | 2024-09-02 10:52 | Pharmacy Report ---
Pharmacy PK ABX Note - Date of Service September 02, 2024 - Assessment and Plan Assessment 79 year old M receiving vancomycin and ceftriaxone for treatment of left leg cellulitis. Was seen in the ED for this on 08/29 and started on cefdinir 300mg po bid. However, pain/swelling of LLE worsened despite antibiotic use so patient returned to ED 09/01. He does have a history of cellulitis, but no history of MRSA and MRSA nasal swab from 09/01 is negative. Patient has been afebrile and without leukocytosis. Day # 2 of antimicrobial therapy. Plan Vancomycin * Loading dose: 2250 mg IV x 1 * Maintenance dose: 1500 mg IV every 24 hours * Regimen is predicted to achieve target AUC/HANSA of 400-600 mg/L.hr * Random vancomycin level will be ordered within the next 48-72 hours. Pharmacy will continue to follow and will adjust dose/frequency as necessary. Thank you. Pharmacy has transitioned to AUC monitoring for vancomycin. AUC/HANSA is the preferred PK/PD target and is associated with decreased risk of nephrotoxicity compared to traditional trough targets.
[2024-09-02] MEDS: cefTRIAXone SODIUM 2,000 MG/50 ML BAG IV SCH (11:57)
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
[2024-09-03] MEDS: ceFAZolin 2000MG 2,000 MG/15 ML SYR IV SCH
[2024-09-03] MEDS ORDERED: ceFAZolin 1000MG 1,000 MG/7.5 ML SYR IV SCH
--- NOTE | 2024-09-03 09:17 | Hospitalist Progress Note ---
Date of Service September 03, 2024 Assessment & Plan (1) Left leg cellulitis: Plan: Presented with worsening LLE pain/swelling despite outpatient antibiotics (sent in by PCP). Injured LLE on 08/27 when he ran into a plow in his garage. Seen in ED on 08/29 and was started on Cefdinir 300 mg PO BID - LLE Doppler from 08/29 negative for DVT - No leukocytosis, afebrile on arrival - CRP and ESR elevated on arrival; CRP downtrending - Acute blood loss anemia with 3 g drop in hgb since presentation on 08/29 -- hgb stable not requiring transfusion. Monitor with AM CBC - Ortho consulted for concern of acute compartment syndrome > Not concerned for acute compartment syndrome, but rather hematoma/cellulitis of the lower leg > Recommend elevating his left leg, compression stocking if tolerated, WBAT, continue antibiotics - Started on Ceftriaxone and Vancomycin on admission - Transitioned to and continued on Cefazolin Q8H - Acetaminophen and oxycodone as needed for pain control - Elevate LLE QS ?Gout attack vs pseudogout of left great toe - Will give colchicine now and can give an additional dose 4 hours after if no symptom improvement - Uric acid with AM labs Plan Ordered colchicine Chronic Stable Issues: - Hypertension: Continue diltiazem; blood pressures stable - Peripheral neuropathy: noted; chronic in lower extremities bilaterally - JANIE: Continue CPAP HS VTE PPx: Heparin 5000u SQ q12h; on HOLD given concern for hematoma CODE STATUS: Full code Admission and Anticipated Discharge Date Admission Date: September 01, 2024 Subjective Patient seen and evaluated at bedside. He reports feeling slightly better today. The extreme tenderness of his anterior LLE is improved today. He ambulated the halls earlier, but reports he had to get back in bed after this due to his leg throbbing and burning. He reports pain of his left great toe. Discussed treating for acute gout attack to see if that improves his toe pain. He denies nausea, abdominal pain, diarrhea, chest pain, shortness of breath, or headache. Physical Exam Physical Exam: General: No acute distress, nondiaphoretic, well-developed, well-nourished. Cardiac: Regular rate and rhythm without murmurs gallops or rubs. Pulm: Clear to auscultation bilaterally without wheezes, rales or rhonchi. No respiratory distress. 93% on room air. Abdominal: Soft, nontender, nondistended. Bowel sounds present. Neuro: A&O x3. No focal neurological deficits. LLE: Warm to touch. Circumferential erythema with significant swelling, improving. No drainage or open wounds noted. Tender to light touch of anterior marie. Point tenderness to medial plantar aspect of metatarsal. Pulses intact. Results & Data Results & Data Vital Signs (Past 12 Hours) Vital Signs Temp Pulse Pulse Resp BP BP Pulse Ox 09/03/24 07:58 97.9 F 59 L 18 114/65 92 09/02/24 21:50 98.8 F 72 18 147/79 H 92 O2 Del Method 09/03/24 07:58 Room Air 09/02/24 21:50 Room Air Laboratory Results Reviewed CBC Reviewed BMP PG Care Time/CCT Total # of Minutes Spent Total Time Spent with Patient: Total time spent is greater than 50% in coordination of care (as documented) at patient's floor/unit and/or counseling patient: Coding Level of Care Code 96558 SUB INP/OBS CARE 2/35MIN Diagnoses Left leg cellulitis L03.116
[2024-09-03 09:35] LABS: Basophils # (auto) 0.05 K/uL (0.00-0.20); Basophils % (auto) 0.7 %; Eosinophils # (auto) 0.19 K/uL (0.00-0.50); Eosinophils % (auto) 2.5 %; Hematocrit (blood only) 42.9 % (42.0-52.0); Hemoglobin 14.6 g/dl (14.0-18.0); Immature Granulocytes # (auto) 0.02 K/uL (0.01-0.20); Immature Granulocytes % (auto) 0.3 %; Lymphocytes # (auto) 2.99 K/uL (1.20-3.40); Lymphocytes % (auto) 39.4 %; Mean Corpuscular Volume 91.1 fL (80.0-100.0); Mean Platelet Volume 9.9 fL (9.4-12.4); Monocytes # (auto) 0.52 K/uL (0.11-0.59); Monocytes % (auto) 6.9 %; Neutrophils # (auto) 3.81 K/uL (1.40-6.50); Neutrophils % (auto) 50.2 %; Platelet Count 194 K/uL (130-400); Red Blood Count 4.71 M/uL (4.70-6.10); White Blood Count 7.58 K/ul (4.8-10.8)
[2024-09-03 09:56] LABS: BUN Creatinine Ratio 15.2 (10-20); C Reactive Protein 8.03 mg/dl (0-0.5); Calcium 9.2 mg/dl (8.6-10.3); Creatinine Clr Calc Pharmacy 53.3 ml/min
[2024-09-03] MEDS: COLCHICINE 0.6 MG TAB PO ONE (17:55)
[2024-09-03 19:37] VITALS: RESP 18; O2SAT 94
[2024-09-04 07:32] VITALS: TEMP 97.7
[2024-09-04 07:51] LABS: Basophils # (auto) 0.05 K/uL (0.00-0.20); Basophils % (auto) 0.6 %; Eosinophils # (auto) 0.22 K/uL (0.00-0.50); Eosinophils % (auto) 2.7 %; Hematocrit (blood only) 42.3 % (42.0-52.0); Hemoglobin 14.5 g/dl (14.0-18.0); Immature Granulocytes # (auto) 0.05 K/uL (0.01-0.20); Immature Granulocytes % (auto) 0.6 %; Lymphocytes # (auto) 2.48 K/uL (1.20-3.40); Mean Corpuscular Hemoglobin 30.9 pg (25.0-34.0); Mean Corpuscular Hgb Conc 34.3 g/dL (32.0-36.0); Mean Platelet Volume 9.7 fL (9.4-12.4); Monocytes # (auto) 0.74 K/uL (0.11-0.59); Monocytes % (auto) 8.9 %; Neutrophils # (auto) 4.73 K/uL (1.40-6.50); Neutrophils % (auto) 57.2 %; Platelet Count 206 K/uL (130-400); RDW Standard Deviation 39.8 fL (36.4-46.3); White Blood Count 8.27 K/ul (4.8-10.8)
[2024-09-04 08:16] LABS: Calcium 9.3 mg/dl (8.6-10.3); Potassium 4.2 mmol/L (3.5-5.1)
[2024-09-04 08:22] LABS: C Reactive Protein 5.06 mg/dl (0-0.5); Creatinine Clr Calc Pharmacy 61.8 ml/min; Uric Acid 6.8 mg/dl (2.6-7.2)
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
[2024-09-04 11:28] VITALS: BP 147/79; PULSE 72
== END 2024-09-04 12:44 | disposition home or self-care (01) | DRG 603 ==
LOC: ED 10:56 → EDINP 13:26 → SUATTDRO 13:26 → 3N 17:04

== ENCOUNTER 2024-09-09 21:33 | Inpatient (IN) ==
[2024-09-09 22:16] LABS: Basophils # (auto) 0.04 K/uL (0.00-0.20); Basophils % (auto) 0.4 %; Eosinophils # (auto) 0.03 K/uL (0.00-0.50); Eosinophils % (auto) 0.3 %; Hematocrit (blood only) 40.7 % (42.0-52.0); Immature Granulocytes # (auto) 0.06 K/uL (0.01-0.20); Immature Granulocytes % (auto) 0.6 %; Lymphocytes # (auto) 1.41 K/uL (1.20-3.40); Lymphocytes % (auto) 14.1 %; Mean Corpuscular Hemoglobin 31.3 pg (25.0-34.0); Mean Corpuscular Hgb Conc 34.4 g/dL (32.0-36.0); Mean Corpuscular Volume 91.1 fL (80.0-100.0); Mean Platelet Volume 10.1 fL (9.4-12.4); Monocytes # (auto) 0.61 K/uL (0.11-0.59); Monocytes % (auto) 6.1 %; Neutrophils # (auto) 7.84 K/uL (1.40-6.50); Neutrophils % (auto) 78.5 %; Platelet Count 222 K/uL (130-400); RDW Coefficient of Variation 12.1 % (11.5-14.5); RDW Standard Deviation 40.4 fL (36.4-46.3); Red Blood Count 4.47 M/uL (4.70-6.10); White Blood Count 9.99 K/ul (4.8-10.8)
--- NOTE | 2024-09-09 22:16 | Emergency Department Note ---
Impression & Plan Sepsis, Pneumonia, Acute metabolic encephalopathy, Bradycardia with 41-50 beats per minute, Gouty arthritis of left great toe ED Provider Note NAME: HAZEL LOCKETT AGE: 79 SEX: M : 1945 ARRIVES VIA: Ambulance INFORMANT: Patient ED PROVIDER(S): Javy Herron MD CHIEF COMPLAINT: Vomiting, bradycardia PLAN: Disposition: Admit MEDICAL DECISION MAKING: The patient is a 79-year-old gentleman with a past medical history of hypertension, hyperlipidemia, peripheral neuropathy, JANIE, osteoarthritis, gout, BPH who presents to the emergency department via EMS and then accompanied by his for evaluation of acute onset nausea and vomiting which his reports occurred this evening after eating dinner. She reports subsequently the patient began to complain of pain all over and was confused from his baseline. He was complaining of chest pain, neck pain, back pain, abdominal pain. He reported tingling all over. Per EMS, patient's heart rate was in the mid 30s and was given 1 mg atropine and 4 mg of Zofran as well as 150 cc of normal saline. Patient's blood pressure remained normotensive however. Patient presents in the setting of being admitted to this facility from 09/01-09/04 for left lower extremity cellulitis with hematoma. Patient was treated with IV antibiotics and discharged on cephalexin for 7 days. The patient was also noted to have suspicion for gout attack versus pseudogout of the left great toe and was started on colchicine. Patient's reports the great toe continues to be red and painful. On my evaluation the patient is uncomfortable but no acute distress, afebrile with heart rate in the 40s-50s and blood pressure stable. O2 saturation was 88% on room air and so placed on 2 L nasal cannula. EKG demonstrates sinus bradycardia, 51 bpm, no ectopy, no evidence of high-grade AV block, no overt ST elevation or depression, QTc 423, QRS 102. Chest x-ray with cardiomegaly and bibasilar densities per my preliminary independent interpretation. X-ray of the left foot demonstrates soft tissue swelling without evidence of fracture. KUB with description of paucity of bowel gas in the right lubna abdomen however better characterized on CT which demonstrated no obstruction. WBC within normal limits. There is neutrophilia but no left shift. Hemoglobin within normal limits. Chemistry without metabolic acidosis. Creatinine 1.5, within prior range of values. Uric acid is mildly above normal at 7.6. Electrolytes and LFTs unremarkable. High-sensitivity troponin 5.8, within normal limits. ESR and CRP are elevated at 41 and 3.8, respectively. Lipase is normal. Procalcitonin is not elevated. UA without evidence of infection. Given the patient's presentation where he complained of chest pain, back pain, neck pain and abdominal pain with symptoms of numbness we did discuss plan for CT imaging with contrast despite his renal insufficiency given concern for possible dissection. CT of the head without contrast was negative for acute abnormalities. CTA of the chest was negative for dissection. Lungs interpreted as atelectasis however given clinical context suspicious for pneumonia. CT of the abdomen pelvis negative acute abnormalities. Of note, the patient was subsequently noted to be hypothermic with rectal temperature of 34.7. Warming blanket/Yocasta hugger was applied and additional warmed fluids administered for concern for sepsis. Empiric treatment initiated with Zosyn. Case was discussed with Dr. Eaton [facility] hospitalist, who will evaluate the patient for admission. Additional antibiotic coverage provided with linezolid and doxycycline. Vancomycin initially considered but was not administered. Further management per admitting team. Triage Nursing notes reviewed and agree them. Prior/external medical records reviewed Vital Signs: reviewed Differential diagnosis: Infection, dehydration, metabolic abnormality, hypo/hyperglycemia, electrolyte disturbance, anemia, hypoxia, cardiac sources, intracerebral event, toxicologic, neurologic, as well as other pathologies. ER treatment provided: See below. Diagnostics interpreted by me: ECG: Sinus bradycardia, 51 bpm, no ectopy, no evidence of high-grade AV block, no overt ST elevation or depression, QTc 423, QRS 102. Cardiac Monitoring: An order for continuous cardiac monitoring was placed and demonstrated Sinus bradycardia, 51 bpm, no ectopy. Laboratory studies: See below Imaging studies: See below Consultation(s): Case was discussed with Dr. Eaton [facility] [place] [facility] hospitalist, who will evaluate the patient for admission. HPI: The patient is a 79-year-old gentleman with a past medical history of hypertension, hyperlipidemia, peripheral neuropathy, JANIE, osteoarthritis, gout, BPH who presents to the emergency department via EMS and then accompanied by his for evaluation of acute onset nausea and vomiting which his reports occurred this evening after eating dinner. She reports subsequently the patient began to complain of pain all over and was confused from his baseline. He was complaining of chest pain, neck pain, back pain, abdominal pain. He reported tingling all over. Per EMS, patient's heart rate was in the mid 30s and was given 1 mg atropine and 4 mg of Zofran as well as 150 cc of normal saline. Patient's blood pressure remained normotensive however. Patient presents in the setting of being admitted to this facility from 09/01-09/04 for left lower extremity cellulitis with hematoma. Patient was treated with IV antibiotics and discharged on cephalexin for 7 days. The patient was also noted to have suspicion for gout attack versus pseudogout of the left great toe and was started on colchicine. Patient's reports the great toe continues to be red and painful. ROS: See above HPI for pertinent positives & negatives. A total of 10 systems reviewed and were otherwise negative. VITALS:See Below PHYSICAL EXAMINATION: GENERAL: Awake, alert, ill-appearing, in no distress HENT: Normocephalic, atraumatic. Oropharynx with dry mucous membranes and otherwise unremarkable. EYES: Normal conjunctiva. Sclera non-icteric. EOMI. No nystamgus. PEARRL. NECK: Supple. No nuchal rigidity. FROM. No JVD. RESPIRATORY: Diminished with underlying rhonchi of bilateral lower lung conrad and otherwise clear to auscultation. CARDIAC: Bradycardic rate, normal rhythm. Extremities warm and well perfused. Pulses equal. ABDOMEN: Soft, non-distended. Mild mid/upper abdominal tenderness without guarding or rebound. MUSCULOSKELETAL: Chest examination reveals no tenderness. The back is symmetrical on inspection without obvious abnormality. There is no CVA tenderness to palpation. No joint edema. LOWER EXTREMITIES: Calves are equal size bilaterally and non-tender. Trace edema of BLE. Trace residual erythema of left lower leg without warmth. Erythema of the medial aspect of the base of the right left great toe suggestive of gout. NEURO: Mildly confused to situation, poor attention. Generalized weakness with 4/5 strength and SILT x 4Ext. SKIN: No rash or jaundice noted. ED COURSE: Critical Care: I have personally spent greater than 35 minutes of critical care time in the direct management of this patient. This includes bedside care, interpretation of diagnostic studies, and testing, discussion with consultants, patient, and family members, and other required patient management activities. This 35 minutes is in excess of all separately billable procedures. Javy Herron MD Past Med/Surg History Problem List Pneumonia (Acute) Sepsis (Acute) Acute metabolic encephalopathy (Acute) Dehydration, moderate Bradycardia with 41-50 beats per minute (Acute) Acute respiratory failure with hypoxia Healthcare-associated pneumonia Gouty arthritis of left great toe (Acute) Elevated BUN (Acute) CANDELARIO (acute kidney injury) (Acute) Cellulitis (Acute) CANDELARIO (acute kidney injury) Left leg cellulitis Abrasion of left lower leg with infection Hematoma (Acute) Cellulitis (Acute) Acute pain of left lower extremity (Acute) BPH w urinary obs/LUTS Acute UTI (Acute) Leukocytosis (Acute) Acute orchitis (Acute) Pain in left testicle (Acute) Epididymo-orchitis without abscess Allergic rhinitis with postnasal drip Obesity (BMI 30.0-34.9) Multiple pulmonary nodules Exertional dyspnea Allergic rhinitis Nocturnal hypoxemia Hypertension, essential Hypoxemia (Acute) Pneumonia due to COVID-19 virus (Acute) Lung nodule Vitamin D deficiency disease Benign essential hypertension (Acute) Enlarged prostate without lower urinary tract symptoms (luts) (Acute) Generalized osteoarthritis (Acute) History of malignant neoplasm of kidney (Acute) Hyperlipidemia (Acute) Insomnia (Acute) Internal hemorrhoids (Acute) Memory loss (Acute) Obstructive sleep apnea (Acute) Peripheral neuropathy (Acute) Postnasal drip (Acute) Prediabetes (Acute) Renal/ureteral disease (Acute) Thoracic aortic aneurysm (Acute) Tubular adenoma of colon (Acute) Neuropathy of both feet (Chronic) Medical History Epistaxis Hypophosphatemia Former smoker Surgical History S/P tonsillectomy and adenoidectomy S/P shoulder surgery S/P nasal septoplasty S/P carpal tunnel release S/p nephrectomy Family History Mother Kidney malignancy Grandfather Prostate cancer Myocardial infarction Denies family history of Colon cancer Ovarian cancer Breast cancer Social History Smoking Status: Former smoker Tobacco Type: Cigarettes Second Hand Exposure: No; Do You Dip or Chew Tobacco: No; Tobacco Cessation Education Requested by Patient: No Hx Alcohol Use: No Hx Substance Use: No Preferred Language: Yi Communication Ability: Effective Visual Impairment: No Limitations Hearing Ability: Normal Criminal Psychologist Required: No Beliefs That Will Affect Care: None marital status: Current Living Situation: Spouse current occupational status: employed Other Information That Helps Us Care for You: No Feels Safe at Home: Yes Safety Concerns: Feels Safe At This Time Childhood Exposure to Second-Hand Smoke: Yes Diet: regular Dental Care, Regularly: Yes Physical Activity Frequency: 5-6 Times per Week Seatbelt Use: always Sunscreen Use: Yes Assistive Devices: Cane Allergies Allergies Allergy/AdvReac Type Severity Reaction Status Date / Time No Known Drug Allergies Allergy Verified 09/01/24 13:06 house dust mite AdvReac Verified 09/01/24 13:06 Home Meds Home Medications Medication Instructions Recorded Confirmed finasteride 5 mg tablet (Proscar) 5 mg PO QAM 11/15/20 09/10/24 gabapentin 600 mg tablet 600 mg PO .COMPLEX 03/10/21 09/10/24 (Neurontin) aspirin 81 mg tablet,delayed 81 mg PO QAM 05/24/21 09/10/24 release (Ketnon Low Dose Aspirin) cholecalciferol (vitamin D3) 125 5,000 units PO QAM 05/24/21 09/10/24 mcg (5,000 unit) capsule (Dialyvite Vitamin D) omeprazole 20 mg capsule,delayed 20 mg PO DAILYBB 05/24/21 09/10/24 release pravastatin 10 mg tablet 10 mg PO HS 05/24/21 09/10/24 diltiazem HCl 120 mg 120 mg PO DAILY 08/11/23 09/10/24 capsule,extended release 24 hr telmisartan 80 1 tab PO DAILY 08/11/23 09/10/24 mg-hydrochlorothiazide 12.5 mg tablet (Micardis HCT) tamsulosin 0.4 mg capsule 0.8 mg PO DAILY 09/04/24 09/10/24 pramipexole 0.5 mg tablet 0.5 mg PO DAILY 09/10/24 09/10/24 Previous Rx's Medication Instructions Recorded ibuprofen 600 mg tablet 600 mg PO Q8H PRN pain #14 tabs 08/14/23 cephalexin 500 mg capsule 500 mg PO BID 7 days #14 caps 09/04/24 Results & Data (ED) Vital Signs Vital Signs - 24 hr 09/10/24 01:30 09/10/24 01:35 09/10/24 02:00 Pulse Rate 46 L 41 L 57 L Respiratory Rate 20 18 Blood Pressure 121/67 100/60 Blood Pressure Mean 79 76 Pulse Oximetry 96 94 Laboratory Data Attestation: I reviewed the patient's lab results. 09/10/24 05:29 09/10/24 05:29 Lab Results 09/09/24 09/10/24 09/10/24 Range/Units 21:42 01:10 01:20 WBC 9.99 (4.8-10.8) K/ul RBC 4.47 L (4.70-6.10) M/uL Hgb 14.0 (14.0-18.0) g/dl Hct 40.7 L (42.0-52.0) % MCV 91.1 (80.0-100.0) fL MCH 31.3 (25.0-34.0) pg MCHC 34.4 (32.0-36.0) g/dL RDW Std Deviation 40.4 (36.4-46.3) fL RDW Coeff of Linda 12.1 (11.5-14.5) % Plt Count 222 (130-400) K/uL MPV 10.1 (9.4-12.4) fL Immature Gran % (Auto) 0.6 % Neut % (Auto) 78.5 % Lymph % (Auto) 14.1 % [place] % (Auto) 6.1 % Eos % (Auto) 0.3 % Baso % (Auto) 0.4 % Neut # (Auto) 7.84 H (1.40-6.50) K/uL Lymph # (Auto) 1.41 (1.20-3.40) K/uL [place] # (Auto) 0.61 H (0.11-0.59) K/uL Eos # (Auto) 0.03 (0.00-0.50) K/uL Baso # (Auto) 0.04 (0.00-0.20) K/uL Immature Gran # (Auto) 0.06 (0.01-0.20) K/uL ESR 41 H (0-20) mm/hr Sodium 141 (136-145) mmol/L Potassium 4.6 (3.5-5.1) mmol/L Chloride 106 (98-107) mmol/L Carbon Dioxide 26 (21-32) mmol/L Anion Gap 9 (3-11) BUN 25 H (6-23) mg/dl Creatinine 1.54 H (0.6-1.4) mg/dl Est Cr Clr Drug Dosing 48.3 ml/min eGFR 46.17 BUN/Creatinine Ratio 16.2 (10-20) Glucose 160 H (70-99(Fasting)) mg/dl Lactate 1.5 (0.4-2.0) mmol/L Uric Acid 7.6 H (2.6-7.2) mg/dl Calcium 8.9 (8.6-10.3) mg/dl Phosphorus 3.6 (2.5-4.9) mg/dl Magnesium 2.1 (1.7-2.4) mg/dl Total Bilirubin 0.6 (0.2-1.0) mg/dl AST 18 (13-39) U/L ALT 15 (7-52) U/L Alkaline Phosphatase 59 (34-104) U/L Troponin I High Sens 5.8 (0-20) pg/ml C-Reactive Protein 3.83 H (0-0.5) mg/dl Total Protein 7.2 (6.0-8.3) gm/dl Albumin 4.1 (3.4-5.0) gm/dl Globulin 3.1 (2.5-4.0) gm/dl Albumin/Globulin Ratio 1.3 (0.9-2) Lipase 12 (11-82) U/L Procalcitonin 0.02 (0-0.5) ng/ml Urine Color Yellow Urine Appearance Clear (Clear) Urine pH 5.0 (4.5-7.5) Ur Specific [place] > 1.045 H (1.000-1.030) Urine Protein Trace H (Negative) Urine Glucose (UA) Negative (Negative) Urine Ketones Negative (Negative) Urine Blood Trace H (Negative) Urine Nitrite Negative (Negative) Urine Bilirubin Negative (Negative) Urine Urobilinogen Negative (Negative) Ur Leukocyte Esterase Negative (Negative) Urine WBC (Auto) 0-5 (0-5) /hpf Urine RBC (Auto) 6-10 H (0-2) /hpf U Hyaline Cast (Auto) 0-2 (0-2) /lpf U Epithel Cells (Auto) 0-2 (0-2) /hpf Urine Bacteria (Auto) None Seen (None Seen) Anaplasma Smear See Comment Babesia Smear See Comment Lyme Disease Screen Negative (Negative) Administered Medications Aspirin (Aspirin 81 Mg Ectab) [facility] [place] Stop: 10/10/24 08:59 Last Admin: 09/10/24 08:23 Dose: 81 mg Documented By: AGUSTINA Colchicine (Colchicine 0.6 Mg Tab) 0.6 mg PO BID [facility] Stop: 10/10/24 20:59 Last Admin: 09/10/24 20:45 Dose: 0.6 mg Documented By: GABRIELA Gabapentin (Gabapentin 600 Mg Tab) 600 mg PO QAM [facility] Stop: 10/10/24 08:59 Last Admin: 09/10/24 08:22 Dose: 600 mg Documented By: AGUSTINA Gabapentin (Gabapentin 600 Mg Tab) 1,200 mg PO HS [facility] Stop: 10/10/24 20:59 Last Admin: 09/10/24 20:45 Dose: 1,200 mg Documented By: GABRIELA Heparin Sodium (Porcine) (Heparin Sod 5,000 Unit/0.5 Ml Vial) 5,000 units SQ Q12 [facility] Stop: 10/10/24 08:59 Last Admin: 09/10/24 20:49 Dose: 5,000 units Documented By: Admin: 09/10/24 08:28 Dose: 5,000 units Documented By: AGUSTINA Linezolid (Zyvox) 600 mg in 300 mls @ 300 mls/hr IV Q12H [facility] Stop: 09/17/24 13:59 Last Infusion: 09/10/24 14:33 Dose: Infused Documented By: Admin: 09/10/24 13:25 Dose: 300 mls/hr Documented By: AGUSTINA Doxycycline Hyclate 100 mg/ (Dextrose) 100 mls @ 50 mls/hr IV Q12H [facility] Stop: 09/17/24 15:59 Last Infusion: 09/10/24 16:53 Dose: Infused Documented By: Admin: 09/10/24 15:02 Dose: 50 mls/hr Documented By: AGUSTINA Piperacillin Sod/Tazobactam Sod (Zosyn) 4.5 gm in 100 mls @ 25 mls/hr IV Q8H [facility]; Protocol Stop: 09/17/24 05:59 Last Infusion: 09/11/24 00:56 Dose: Infused Documented By: Admin: 09/10/24 20:47 Dose: 25 mls/hr Documented By: Infusion: 09/10/24 17:26 Dose: Infused Documented By: Admin: 09/10/24 13:25 Dose: 25 mls/hr Documented By: Infusion: 09/10/24 08:40 Dose: Infused Documented By: Admin: 09/10/24 05:13 Dose: 25 mls/hr Documented By: BRUNA Insulin Aspart (Insulin Aspart Per Unit Charge) 0 units SC ACHS IVA Stop: 10/10/24 16:29 Last Admin: 09/10/24 20:46 Dose: Not Given Documented By: Admin: 09/10/24 17:11 Dose: Not Given Documented By: AGUSTINA Ondansetron HCl (Ondansetron Inj 2 Mg/Ml 2 Ml Vial) 4 mg IV Q6H PRN PRN Reason: Nausea Stop: 10/10/24 03:44 Last Admin: 09/10/24 20:44 Dose: 4 mg Documented By: GABRIELA Pramipexole Dihydrochloride (Pramipexole Dihydrochlo 0.5 Mg Tab) 0.5 mg PO DAILY IVA Stop: 10/10/24 08:59 Last Admin: 09/10/24 08:23 Dose: 0.5 mg Documented By: AGUSTINA Tamsulosin HCl (Tamsulosin Hcl 0.4 Mg Cap) 0.8 mg PO DAILY IVA Stop: 10/10/24 08:59 Last Admin: 09/10/24 08:22 Dose: 0.8 mg Documented By: AGUSTINA Vitamin D (Cholecalciferol 125 Mcg (5,000 Units) Tab) 125 mcg PO QAM IVA Stop: 10/10/24 08:59 Last Admin: 09/10/24 08:22 Dose: 125 mcg Documented By: AGUSTINA Discontinued Medications Colchicine (Colchicine 0.6 Mg Tab) 0.6 mg PO NOW STA Stop: 09/10/24 01:31 Last Admin: 09/10/24 02:02 Dose: 0.6 mg Documented By: ZAY Sodium Chloride (Nss) 500 mls @ 999 mls/hr IV .Q31M ONE Stop: 09/09/24 22:44 Last Infusion: 09/09/24 23:24 Dose: Infused Documented By: Admin: 09/09/24 22:53 Dose: 999 mls/hr Documented By: CARLOS Acetaminophen (Ofirmev) 1,000 mg in 100 mls @ 400 mls/hr IV NOW STA Stop: 09/09/24 22:28 Last Infusion: 09/09/24 23:08 Dose: Infused Documented By: Admin: 09/09/24 22:53 Dose: 400 mls/hr Documented By: MMF Famotidine (Pepcid 20mg Iv Push) 20 mg in 5 mls @ 2.5 mls/min IV NOW STA Stop: 09/09/24 22:15 Last Admin: 09/09/24 22:53 Dose: 2.5 mls/min Documented By: MMF Piperacillin Sod/Tazobactam Sod (Zosyn) 4.5 gm in 100 mls @ 200 mls/hr IV NOW ONE; Protocol Stop: 09/10/24 01:38 Last Infusion: 09/10/24 02:00 Dose: Infused Documented By: Admin: 09/10/24 01:29 Dose: 200 mls/hr Documented By: ZYA Vancomycin HCl 2,250 mg/ (Sodium Chloride) 545 mls @ 200 mls/hr IV NOW ONE Stop: 09/10/24 03:52 Last Admin: 09/10/24 01:52 Dose: Not Given Documented By: ZAY Sodium Chloride (Nss) 1,000 mls @ 999 mls/hr IV .Q1H1M ONE Stop: 09/10/24 02:11 Last Infusion: 09/10/24 02:33 Dose: Infused Documented By: Admin: 09/10/24 01:28 Dose: 999 mls/hr Documented By: ZAY Linezolid (Zyvox) 600 mg in 300 mls @ 300 mls/hr IV ONE STA Stop: 09/10/24 02:29 Last Infusion: 09/10/24 03:00 Dose: Infused Documented By: Admin: 09/10/24 01:52 Dose: 300 mls/hr Documented By: ZAY Sodium Chloride (Nss) 1,000 mls @ 80 mls/hr IV .[id number] STA Stop: 09/10/24 14:36 Last Infusion: 09/10/24 14:57 Dose: Infused Documented By: Admin: 09/10/24 02:31 Dose: 80 mls/hr Documented By: ZAY Doxycycline Hyclate 100 mg/ (Dextrose) 100 mls @ 50 mls/hr IV ONE STA Stop: 09/10/24 04:07 Last Infusion: 09/10/24 05:07 Dose: Infused Documented By: Admin: 09/10/24 02:31 Dose: 50 mls/hr Documented By: ZAY Insulin Aspart (Insulin Aspart Per Unit Charge) 0 units SC Q6 IVA Stop: 10/10/24 05:59 Last Admin: 09/10/24 12:15 Dose: Not Given Documented By: Admin: 09/10/24 05:13 Dose: 1 units Documented By: BRUNA Co-signed By: HEIDI Ioversol (Optiray 320 125ml) 115 ml IV ONCE ONE Stop: 09/09/24 22:36 Last Admin: 09/09/24 22:35 Dose: 115 ml Documented By: HO Menthol (Cough Drop (Sugar Free) Jordon 24 Jordon/1 Box) 1 jordon BUCCAL NOW STA Stop: 09/10/24 12:57 Last Admin: 09/10/24 13:25 Dose: Not Given Documented By: AGUSTINA Menthol (Cough Drop (Sugar Free) Jordon 24 Jordon/1 Box) Confirm Administered Dose 24 jordon BUCCAL .STK-MED ONE Stop: 09/10/24 13:01 Last Admin: 09/10/24 13:25 Dose: 24 jordon Documented By: AGUSTINA Morphine Sulfate (Morphine Sulfate 4 Mg/Ml 1 Ml Carp\Vial) 4 mg IV NOW STA Stop: 09/09/24 22:15 Last Admin: 09/09/24 22:53 Dose: 4 mg Documented By: MMF Ondansetron HCl (Ondansetron Inj 2 Mg/Ml 2 Ml Vial) 4 mg IV NOW STA Stop: 09/09/24 22:15 Last Admin: 09/09/24 22:53 Dose: 4 mg Documented By: MMF Ondansetron HCl (Ondansetron Inj 2 Mg/Ml 2 Ml Vial) Confirm Administered Dose 4 mg .ROUTE .STK-MED ONE Stop: 09/10/24 02:36 Last Admin: 09/10/24 02:37 Dose: 4 mg Documented By: ASW Imaging Data Radiologist's Impression: Chest X-Ray 09/09/24 21:55 Exam(s): XR CXR 1 VIEW EXAM: XR Chest, 1 View CLINICAL HISTORY: Reason for exam: dizziness. TECHNIQUE: Frontal view of the chest. COMPARISON: No relevant prior studies available. IMPRESSION: 1. Cardiomegaly. 2. Mild atelectatic changes at the lung bases. Electronically signed by: Alex Lerma MD 09/10/24 02:59 AM Foot X-Ray 09/09/24 22:11 Exam(s): XR LEFT FOOT, 2 views EXAM: XR Left Foot, 1 view CLINICAL HISTORY: Reason for exam: great toe pain, redness. TECHNIQUE: Lateral imaging of the foot was obtained. COMPARISON: No relevant prior studies available. IMPRESSION: 1. Single lateral image of the foot shows soft tissue swelling. No obvious evidence of fracture. 2. Enthesophyte formation at the Achilles tendon insertion and plantar fascia origin. Additional degenerative changes in the midfoot. Electronically signed by: Alex Lerma MD 09/10/24 03:05 AM KUB X-Ray 09/09/24 22:11 Exam(s): XR KUB EXAM: XR Abdomen, 1 View CLINICAL HISTORY: Reason for exam: abd pain, vomiting. TECHNIQUE: Frontal supine view of the abdomen/pelvis. COMPARISON: No relevant prior studies available. IMPRESSION: 1. Evaluation for free air limited by supine imaging. In addition, the abdomen was incompletely visualized. 2. Paucity of bowel gas limits evaluation with prominent bowel loops in the right hemiabdomen measuring up to 4.8 cm, some of which are favored to be colonic. Developing bowel obstruction is possible. If there is further concern, consider cross-sectional imaging. 3. Cholecystectomy clips. Electronically signed by: Alex Lerma MD 09/10/24 03:03 AM Abdomen/Pelvis CTA 09/09/24 22:12 Exam(s): CTA ABDOMEN + PELVIS With Contrast IV Amt: 115 ml optiray 320 EXAM: CT Angiography Abdomen and Pelvis With Intravenous Contrast CLINICAL HISTORY: Reason for exam: chest, back, abd pain, n/v. TECHNIQUE: Axial computed tomographic angiography images of the abdomen and pelvis with intravenous contrast. CTDI is 31.4 mGy and DLP is 1029.71 mGy-cm. Automated exposure control was utilized for the study. A dose lowering technique was utilized adhering to the principles of ALARA. MIP reconstructed images were created and reviewed. CONTRAST: Patient received 115 ml optiray 320 of IV contrast COMPARISON: No relevant prior studies available. FINDINGS: VASCULATURE: Aorta: No acute findings. No abdominal aortic aneurysm. No dissection. Celiac trunk and mesenteric arteries: No acute findings. No occlusion or significant stenosis. Renal arteries: No acute findings. No occlusion or significant stenosis. Iliac arteries: No acute findings. No occlusion or significant stenosis. Lung bases: Unremarkable. No mass. No consolidation. ABDOMEN: Liver: Unremarkable. No mass. Gallbladder and bile ducts: Unremarkable. No calcified stones. No ductal dilation. Pancreas: Unremarkable. No ductal dilation. No mass. Spleen: Unremarkable. No splenomegaly. Adrenals: Unremarkable. No mass. Kidneys and ureters: Unremarkable. No hydronephrosis. No solid mass. Stomach and bowel: Diverticulosis without evidence of diverticulitis. No obstruction. PELVIS: Appendix: No findings to suggest acute appendicitis. Bladder: Unremarkable. No mass. Reproductive: Unremarkable as visualized. ABDOMEN and PELVIS: Intraperitoneal space: Unremarkable. No significant fluid collection. No free air. Bones/joints: No acute fracture. No dislocation. Soft tissues: Unremarkable. Lymph nodes: Unremarkable. No enlarged lymph nodes. IMPRESSION: No acute findings in the arteries of the abdomen and pelvis. Electronically signed by: Chang Santoro MD 09/10/24 00:57 AM Chest CTA 09/09/24 22:12 Exam(s): CTA CHEST W/WO Contrast IV Amt: 115 ml optiray 320 EXAM: CT Angiography Chest Without and With Intravenous Contrast CLINICAL HISTORY: Reason for exam: chest, back, abd pain, n/v. TECHNIQUE: Axial computed tomographic angiography images of the chest without and with intravenous contrast. CTDI is 32.21 mGy and DLP is 2264 mGy-cm. Automated exposure control was utilized for the study. A dose lowering technique was utilized adhering to the principles of ALARA. MIP reconstructed images were created and reviewed. CONTRAST: Patient received 115 ml optiray 320 of IV contrast COMPARISON: No relevant prior studies available. FINDINGS: Pulmonary arteries: Mild pulmonary arterial hypertension. No pulmonary embolism. Aorta: 4.3 cm ascending thoracic aortic aneurysm. Lungs: Mild bibasilar dependent atelectasis. No mass. Pleural space: Unremarkable. No significant effusion. No pneumothorax. Heart: Unremarkable. No cardiomegaly. No significant pericardial effusion. No evidence of RV dysfunction. Bones/joints: No acute fracture. No dislocation. Soft tissues: Unremarkable. Lymph nodes: Unremarkable. No enlarged lymph nodes. IMPRESSION: No acute findings in the visualized arteries of the chest. 4.3 cm ascending thoracic aortic aneurysm No evidence of dissection. Electronically signed by: Chang Santoro MD 09/10/24 01:[address] 09/09/24 22:12 Exam(s): CT HEAD Without Contrast EXAM: CT Head Without Intravenous Contrast CLINICAL HISTORY: Reason for exam: n/v amx. TECHNIQUE: Axial computed tomography images of the head/brain without intravenous contrast. CTDI is 31.4 mGy and DLP is 1098 mGy-cm. Automated exposure control was utilized for the study. A dose lowering technique was utilized adhering to the principles of ALARA. COMPARISON: No relevant prior studies available. FINDINGS: Brain: Unremarkable. No hemorrhage. No significant white matter disease. No edema. Ventricles: Unremarkable. No ventriculomegaly. Bones/joints: Unremarkable. No acute fracture. Soft tissues: Unremarkable. Sinuses: Unremarkable as visualized. No acute sinusitis. Mastoid air cells: Unremarkable as visualized. No mastoid effusion. IMPRESSION: Normal head/brain CT. Electronically signed by: Chang Santoro MD 09/10/24 00:51 AM Discharge Plan Visit Data Chief Complaint: Bradycardia Stated Complaint: bradycardia, n/v. ED Provider: Javy Herron Discharge Problem: Sepsis, Pneumonia, Acute metabolic encephalopathy, Bradycardia with 41-50 beats per minute, Gouty arthritis of left great toe Patient Disposition: Admitted As Inpatient Discharge Instructions Interventions: ED Discharge Assessment Last Done: 09/10/24 03:09 Discharge Problem: Sepsis Qualifiers: Sepsis type: sepsis due to unspecified organism Sepsis acute organ dysfunction status: with acute organ dysfunction Severe sepsis acute organ dysfunction type: encephalopathy Severe sepsis shock status: without septic shock Qualified Code(s): A41.9 - Sepsis, unspecified organism Pneumonia Qualifiers: Pneumonia type: due to unspecified organism Laterality: bilateral Lung location: lower lobe of lung Qualified Code(s): J18.9 - Pneumonia, unspecified organism
[2024-09-09 22:29] LABS: Albumin Globulin Ratio 1.3 (0.9-2); Albumin Level 4.1 gm/dl (3.4-5.0); BUN Creatinine Ratio 16.2 (10-20); Bilirubin,Total 0.6 mg/dl (0.2-1.0); Calcium 8.9 mg/dl (8.6-10.3); Creatinine Clr Calc Pharmacy 48.3 ml/min; Globulin 3.1 gm/dl (2.5-4.0); Magnesium 2.1 mg/dl (1.7-2.4); Phosphorus 3.6 mg/dl (2.5-4.9); Potassium 4.6 mmol/L (3.5-5.1); Total Protein 7.2 gm/dl (6.0-8.3)
[2024-09-09 22:35] LABS: Troponin I High Sensitivity 5.8 pg/ml (0-20)
[2024-09-09] MEDS: OPTIRAY 320 125ml IV ONE (22:35)
[2024-09-09 22:37] LABS: Uric Acid 7.6 mg/dl (2.6-7.2)
[2024-09-09] MEDS: ONDANSETRON INJ 2 MG/ML 2 ML VIAL IV STA (22:53)
[2024-09-09] MEDS: SODIUM CHLORIDE 0.9% 500 ML IV ONE (22:53)
[2024-09-09] MEDS: ACETAMINOPHEN 1,000 MG/100 ML VIAL IV STA (22:53)
[2024-09-09] MEDS: FAMOTIDINE 20MG IV PUSH 20 MG/5 ML SYR IV STA (22:53)
[2024-09-09] MEDS: MoRPHine SULFATE 4 MG/ML 1 ML CARP\\VIAL IV STA (22:53)
[2024-09-09 23:00] LABS: C Reactive Protein 3.83 mg/dl (0-0.5)
--- NOTE | 2024-09-10 00:52 | CT Scan Report ---
Exam(s): CT HEAD Without Contrast EXAM: CT Head Without Intravenous Contrast CLINICAL HISTORY: Reason for exam: n/v amx. TECHNIQUE: Axial computed tomography images of the head/brain without intravenous contrast. CTDI is 31.4 mGy and DLP is 1098 mGy-cm. Automated exposure control was utilized for the study. A dose lowering technique was utilized adhering to the principles of ALARA. COMPARISON: No relevant prior studies available. FINDINGS: Brain: Unremarkable. No hemorrhage. No significant white matter disease. No edema. Ventricles: Unremarkable. No ventriculomegaly. Bones/joints: Unremarkable. No acute fracture. Soft tissues: Unremarkable. Sinuses: Unremarkable as visualized. No acute sinusitis. Mastoid air cells: Unremarkable as visualized. No mastoid effusion. IMPRESSION: Normal head/brain CT. Electronically signed by: Chang Santoro MD 09/10/24 00:51 AM
--- NOTE | 2024-09-10 00:58 | CT Scan Report ---
Exam(s): CTA ABDOMEN + PELVIS With Contrast IV Amt: 115 ml optiray 320 EXAM: CT Angiography Abdomen and Pelvis With Intravenous Contrast CLINICAL HISTORY: Reason for exam: chest, back, abd pain, n/v. TECHNIQUE: Axial computed tomographic angiography images of the abdomen and pelvis with intravenous contrast. CTDI is 31.4 mGy and DLP is 1029.71 mGy-cm. Automated exposure control was utilized for the study. A dose lowering technique was utilized adhering to the principles of ALARA. MIP reconstructed images were created and reviewed. CONTRAST: Patient received 115 ml optiray 320 of IV contrast COMPARISON: No relevant prior studies available. FINDINGS: VASCULATURE: Aorta: No acute findings. No abdominal aortic aneurysm. No dissection. Celiac trunk and mesenteric arteries: No acute findings. No occlusion or significant stenosis. Renal arteries: No acute findings. No occlusion or significant stenosis. Iliac arteries: No acute findings. No occlusion or significant stenosis. Lung bases: Unremarkable. No mass. No consolidation. ABDOMEN: Liver: Unremarkable. No mass. Gallbladder and bile ducts: Unremarkable. No calcified stones. No ductal dilation. Pancreas: Unremarkable. No ductal dilation. No mass. Spleen: Unremarkable. No splenomegaly. Adrenals: Unremarkable. No mass. Kidneys and ureters: Unremarkable. No hydronephrosis. No solid mass. Stomach and bowel: Diverticulosis without evidence of diverticulitis. No obstruction. PELVIS: Appendix: No findings to suggest acute appendicitis. Bladder: Unremarkable. No mass. Reproductive: Unremarkable as visualized. ABDOMEN and PELVIS: Intraperitoneal space: Unremarkable. No significant fluid collection. No free air. Bones/joints: No acute fracture. No dislocation. Soft tissues: Unremarkable. Lymph nodes: Unremarkable. No enlarged lymph nodes. IMPRESSION: No acute findings in the arteries of the abdomen and pelvis. Electronically signed by: Chang Santoro MD 09/10/24 00:57 AM
[2024-09-10] MEDS ORDERED: VANCOMYCIN CONSULT ACTIVE PRN (01:09)
--- NOTE | 2024-09-10 01:09 | CT Scan Report ---
Exam(s): CTA CHEST W/WO Contrast IV Amt: 115 ml optiray 320 EXAM: CT Angiography Chest Without and With Intravenous Contrast CLINICAL HISTORY: Reason for exam: chest, back, abd pain, n/v. TECHNIQUE: Axial computed tomographic angiography images of the chest without and with intravenous contrast. CTDI is 32.21 mGy and DLP is 2264 mGy-cm. Automated exposure control was utilized for the study. A dose lowering technique was utilized adhering to the principles of ALARA. MIP reconstructed images were created and reviewed. CONTRAST: Patient received 115 ml optiray 320 of IV contrast COMPARISON: No relevant prior studies available. FINDINGS: Pulmonary arteries: Mild pulmonary arterial hypertension. No pulmonary embolism. Aorta: 4.3 cm ascending thoracic aortic aneurysm. Lungs: Mild bibasilar dependent atelectasis. No mass. Pleural space: Unremarkable. No significant effusion. No pneumothorax. Heart: Unremarkable. No cardiomegaly. No significant pericardial effusion. No evidence of RV dysfunction. Bones/joints: No acute fracture. No dislocation. Soft tissues: Unremarkable. Lymph nodes: Unremarkable. No enlarged lymph nodes. IMPRESSION: No acute findings in the visualized arteries of the chest. 4.3 cm ascending thoracic aortic aneurysm No evidence of dissection. Electronically signed by: Chang Santoro MD 09/10/24 01:08 AM
[2024-09-10 01:26] LABS: Appearance Urine Clear (Clear); Bacteria Urine Automated None Seen (None Seen); Bilirubin Urine Negative (Negative); Blood Urine Trace (Negative); Cast Urine Automated 0-2 /lpf (0-2); Color Urine Yellow; Epithelial Cell Urine Auto 0-2 /hpf (0-2); Glucose Urine UA Negative (Negative); Ketones Urine Negative (Negative); Leukocyte Esterase Urine Negative (Negative); Nitrite Urine Negative (Negative); Protein Urine Trace (Negative); Specific Gravity Urine > 1.045 (1.000-1.030); Urobilinogen Urine Negative (Negative); WBC Urine Automated 0-5 /hpf (0-5)
[2024-09-10] MEDS: SODIUM CHLORIDE 0.9% 1,000 ML IV ONE (01:28)
[2024-09-10] MEDS: PIPERACILLIN/TAZOBACTAM 4.5 GM/100 ML BAG IV ONE (01:29)
[2024-09-10] MEDS: LINEZOLID 600 MG/300 ML BAG IV STA (01:52)
[2024-09-10] MEDS: VANCOMYCIN HCL 2,250 MG in SODIUM CHLORIDE 0.9% 500 ML IV ONE (01:52)
[2024-09-10] MEDS: COLCHICINE 0.6 MG TAB PO STA (02:02)
--- NOTE | 2024-09-10 02:03 | History & Physical Report ---
Date of Service September 10, 2024 Assessment & Plan (1) Acute metabolic encephalopathy: (2) Acute respiratory failure with hypoxia: (3) Healthcare-associated pneumonia: (4) Left leg cellulitis: (5) Gouty arthritis of left great toe: (6) CANDELARIO (acute kidney injury): (7) Bradycardia with 41-50 beats per minute: (8) Dehydration, moderate: Plan Acute metabolic encephalopathy/sepsis /confusion- Multiple contributing factors including but not limited to: Acute kidney injury, dehydration, HCAP, left lower extremity cellulitis, acute gouty arthritis left great toe, bradycardia The patient will be admitted to telemetry for serial cardiac enzymes, serial EKG's, cardiac rhythm monitoring and a 2-D echocardiogram with Dopplers. HCAP/JANIE- Pulse ox 88% on room air upon arrival Improved with oxy mask to 99% 6 L/min Patient does wear his CPAP at bedtime, which will be provided for him now, but may bring in his own tomorrow night Linezolid 600 mg IV every 12 hours Zosyn 4.5 g IV every 8 hours Doxycycline 100 mg IV every 12 hours Bradycardia- Heart rate in the range of 41-46 May be secondary to sepsis Hold Cardizem CD 120 mg daily Patient reportedly did receive atropine IV by EMS en route Heart rate was initially 51 upon arrival, but settled in the low 40s for the remainder of of time in the ED the patient will be admitted to telemetry for serial cardiac enzymes, serial EKG's, cardiac rhythm monitoring and a 2-D echocardiogram with Dopplers. 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 Discussed with need for cessation Status post 1.5 L NSS bolus by the ED Placed on NSS at 80 mL/h x 1 additional liter Repeat laboratories in a.m. Left lower extremity cellulitis/acute gouty arthritis left right toe- Antibiotics as above Uric acid 7.6, likely aggravated in part by being on HCTZ, which will be held as above Give colchicine 0.6 mg p.o. now, and then 0.6 mg p.o. twice daily oral evening Avoid NSAIDs due to renal insufficiency Prediabetes- Glucose 160 on admission Placed on Accu-Cheks with NovoLog SSI Check hemoglobin A1c Ascending thoracic aortic aneurysm- 4.3 cm on CTA chest Can be followed serially as outpatient History of Present Illness Chief Complaint: The patient was brought to the emergency department due to 's concerns regarding changing mental status, increased need for sleep, fatigue and disorientation, shortness of breath with dyspnea on exertion, and persistence of left lower extremity cellulitis after being noted, and ending from 09/01- 09/04/2024. 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 The patient was brought to the emergency department due to 's concerns as noted above. The patient is somewhat disoriented and confused, his provides most of the narrative, and another information gathered from previous admission, current gather data, and emergency department notes Allergies Allergy/AdvReac Type Severity Reaction Status Date / Time No Known Drug Allergies Allergy Verified 09/01/24 13:06 house dust mite AdvReac Verified 09/01/24 13:06 Home Medications Medication Instructions Recorded Confirmed Type finasteride 5 mg tablet (Proscar) 5 mg PO QAM 11/15/20 09/10/24 History gabapentin 600 mg tablet 600 mg PO .COMPLEX 03/10/21 09/10/24 History (Neurontin) aspirin 81 mg tablet,delayed 81 mg PO QAM 05/24/21 09/10/24 History release ([place] Low Dose Aspirin) cholecalciferol (vitamin D3) 125 5,000 units PO QAM 05/24/21 09/10/24 History mcg (5,000 unit) capsule (Dialyvite Vitamin D) omeprazole 20 mg capsule,delayed 20 mg PO DAILYBB 05/24/21 09/10/24 History release pravastatin 10 mg tablet 10 mg PO HS 05/24/21 09/10/24 History diltiazem HCl 120 mg 120 mg PO DAILY 08/11/23 09/10/24 History capsule,extended release 24 hr telmisartan 80 1 tab PO DAILY 08/11/23 09/10/24 History mg-hydrochlorothiazide 12.5 mg tablet (Micardis HCT) ibuprofen 600 mg tablet 600 mg PO Q8H PRN pain #14 tabs 08/14/23 09/10/24 Rx cephalexin 500 mg capsule 500 mg PO BID 7 days #14 caps 09/04/24 09/10/24 Rx tamsulosin 0.4 mg capsule 0.8 mg PO DAILY 09/04/24 09/10/24 History pramipexole 0.5 mg tablet 0.5 mg PO DAILY 09/10/24 09/10/24 History Past Med/Surg History Problem List (Updated 09/10/24 @ 03:49 by Gabriel Eaton MD) Acute metabolic encephalopathy Dehydration, moderate Bradycardia with 41-50 beats per minute Acute respiratory failure with hypoxia Healthcare-associated pneumonia Gouty arthritis of left great toe Elevated BUN (Acute) CANDELARIO (acute kidney injury) (Acute) Cellulitis (Acute) CANDELARIO (acute kidney injury) Left leg cellulitis Abrasion of left lower leg with infection Hematoma (Acute) Cellulitis (Acute) Acute pain of left lower extremity (Acute) BPH w urinary obs/LUTS Acute UTI (Acute) Leukocytosis (Acute) Acute orchitis (Acute) Pain in left testicle (Acute) Epididymo-orchitis without abscess Allergic rhinitis with postnasal drip Obesity (BMI 30.0-34.9) Multiple pulmonary nodules Exertional dyspnea Allergic rhinitis Nocturnal hypoxemia Hypertension, essential Hypoxemia (Acute) Pneumonia due to COVID-19 virus (Acute) Lung nodule Vitamin D deficiency disease Benign essential hypertension (Acute) Enlarged prostate without lower urinary tract symptoms (luts) (Acute) Generalized osteoarthritis (Acute) History of malignant neoplasm of kidney (Acute) Hyperlipidemia (Acute) Insomnia (Acute) Internal hemorrhoids (Acute) Memory loss (Acute) Obstructive sleep apnea (Acute) Peripheral neuropathy (Acute) Postnasal drip (Acute) Prediabetes (Acute) Renal/ureteral disease (Acute) Thoracic aortic aneurysm (Acute) Tubular adenoma of colon (Acute) Neuropathy of both feet (Chronic) Medical History Epistaxis Hypophosphatemia Former smoker Surgical History S/P tonsillectomy and adenoidectomy S/P shoulder surgery S/P nasal septoplasty S/P carpal tunnel release S/p nephrectomy Family History Mother Kidney malignancy Grandfather Prostate cancer Myocardial infarction Denies family history of Colon cancer Ovarian cancer Breast cancer Social History Smoking Status: Former smoker Tobacco Type: Cigarettes Second Hand Exposure: No; Do You Dip or Chew Tobacco: No; Hx Alcohol Use: No Hx Substance Use: No Preferred Language: Yakut Communication Ability: Effective Visual Impairment: No Limitations Hearing Ability: Normal Box Office Manager Required: No Beliefs That Will Affect Care: None marital status: Current Living Situation: Spouse current occupational status: employed Feels Safe at Home: Yes Childhood Exposure to Second-Hand Smoke: Yes Diet: regular Dental Care, Regularly: Yes Physical Activity Frequency: 5-6 Times per Week Seatbelt Use: always Sunscreen Use: Yes Assistive Devices: Cane, CPAP and Walker Review of Systems Review of Systems: Review of systems as noted is limited due to patient's current mental status of confusion and disorientation due to encephalopathy. Physical Exam Physical Exam: The patient is somnolent but arousable, well developed and well nourished, normocephalic and atraumatic, lying in bed and in no acute distress. HEENT--PERRL, EOMI, mucous membranes and oropharynx moderately dry. Neck--supple. No JVD. No bruits. Thyroid normal, trachea midline, no adenopathy. Heart-sinus bradycardia. No murmurs, rubs or gallops. Lungs-- coarse breath sounds with scattered wheezes Abdomen--normal bowel sounds and soft. Nontender. Nondistended. Obese Extremities--left lower extremity with moderate erythema and warmth from ankle to anterior tibial tuberosity. Left great toe and first metatarsal with moderately severe erythema and painful to touch Dermatologic--normal except for above Neurologic--cranial nerves II through XII grossly intact. Rheumatologic--limited exam due to intermittent somnolence Psychiatric--intermittently somnolent, confused Results & Data Results & Data Vital Signs (Past 12 Hours) Vital Signs Temp Pulse Pulse Resp BP BP Pulse Ox 09/10/24 01:35 41 L 09/10/24 01:30 46 L 20 121/67 96 09/10/24 01:00 42 L 18 122/63 98 09/10/24 00:00 52 L 16 99/57 L 97 09/09/24 23:30 53 L 18 103/56 L 95 09/09/24 23:00 47 L 20 134/76 97 09/09/24 22:01 47 L 14 93 09/09/24 21:45 36.4 C L 49 L 13 136/71 95 09/09/24 21:45 88 L 09/09/24 21:42 54 L 09/09/24 21:38 36.4 C L 51 L 20 136/71 88 L O2 Del Method O2 Flow Rate 09/10/24 01:35 09/10/24 01:30 09/10/24 01:00 09/10/24 00:00 09/09/24 23:30 09/09/24 23:00 Nasal Cannula 4 09/09/24 22:01 Nasal Cannula 2 09/09/24 21:45 Nasal Cannula 2 09/09/24 21:45 Room Air 09/09/24 21:42 09/09/24 21:38 Room Air Laboratory Results Laboratory Results WBC 9.99 K/ul (4.8-10.8) 09/09/24 21:42 RBC 4.47 M/uL (4.70-6.10) L 09/09/24 21:42 Hgb 14.0 g/dl (14.0-18.0) 09/09/24 21:42 Hct 40.7 % (42.0-52.0) L 09/09/24 21:42 MCV 91.1 fL (80.0-100.0) 09/09/24 21:42 MCH 31.3 pg (25.0-34.0) 09/09/24 21:42 MCHC 34.4 g/dL (32.0-36.0) 09/09/24 21:42 RDW Std Deviation 40.4 fL (36.4-46.3) 09/09/24 21:42 RDW Coeff of Linda 12.1 % (11.5-14.5) 09/09/24 21:42 Plt Count 222 K/uL (130-400) 09/09/24 21:42 MPV 10.1 fL (9.4-12.4) 09/09/24 21:42 Immature Gran % (Auto) 0.6 % 09/09/24 21:42 Neut % (Auto) 78.5 % 09/09/24 21:42 Lymph % (Auto) 14.1 % 09/09/24 21:42 [place] % (Auto) 6.1 % 09/09/24 21:42 Eos % (Auto) 0.3 % 09/09/24 21:42 Baso % (Auto) 0.4 % 09/09/24 21:42 Neut # (Auto) 7.84 K/uL (1.40-6.50) H 09/09/24 21:42 Lymph # (Auto) 1.41 K/uL (1.20-3.40) 09/09/24 21:42 [place] # (Auto) 0.61 K/uL (0.11-0.59) H 09/09/24 21:42 Eos # (Auto) 0.03 K/uL (0.00-0.50) 09/09/24 21:42 Baso # (Auto) 0.04 K/uL (0.00-0.20) 09/09/24 21:42 Immature Gran # (Auto) 0.06 K/uL (0.01-0.20) 09/09/24 21:42 ESR 41 mm/hr (0-20) H 09/09/24 21:42 Sodium 141 mmol/L (136-145) 09/09/24 21:42 Potassium 4.6 mmol/L (3.5-5.1) 09/09/24 21:42 Chloride 106 mmol/L (98-107) 09/09/24 21:42 Carbon Dioxide 26 mmol/L (21-32) 09/09/24 21:42 Anion Gap 9 (3-11) 09/09/24 21:42 BUN 25 mg/dl (6-23) H 09/09/24 21:42 Creatinine 1.54 mg/dl (0.6-1.4) H 09/09/24 21:42 Est Cr Clr Drug Dosing 48.3 ml/min 09/09/24 21:42 eGFR 46.17 09/09/24 21:42 BUN/Creatinine Ratio 16.2 (10-20) 09/09/24 21:42 Glucose 160 mg/dl (70-99(Fasting)) H 09/09/24 21:42 Lactate 1.5 mmol/L (0.4-2.0) 09/10/24 01:20 Uric Acid 7.6 mg/dl (2.6-7.2) H 09/09/24 21:42 Calcium 8.9 mg/dl (8.6-10.3) 09/09/24 21:42 Phosphorus 3.6 mg/dl (2.5-4.9) 09/09/24 21:42 Magnesium 2.1 mg/dl (1.7-2.4) 09/09/24 21:42 Total Bilirubin 0.6 mg/dl (0.2-1.0) 09/09/24 21:42 AST 18 U/L (13-39) 09/09/24 21:42 ALT 15 U/L (7-52) 09/09/24 21:42 Alkaline Phosphatase 59 U/L (34-104) 09/09/24 21:42 Troponin I High Sens 5.8 pg/ml (0-20) 09/09/24 21:42 C-Reactive Protein 3.83 mg/dl (0-0.5) H 09/09/24 21:42 Total Protein 7.2 gm/dl (6.0-8.3) 09/09/24 21:42 Albumin 4.1 gm/dl (3.4-5.0) 09/09/24 21:42 Globulin 3.1 gm/dl (2.5-4.0) 09/09/24 21:42 Albumin/Globulin Ratio 1.3 (0.9-2) 09/09/24 21:42 Lipase 12 U/L (11-82) 09/09/24 21:42 Procalcitonin 0.02 ng/ml (0-0.5) 09/09/24 21:42 Urine Color Yellow 09/10/24 01:10 Urine Appearance Clear (Clear) 09/10/24 01:10 Urine pH 5.0 (4.5-7.5) 09/10/24 01:10 Ur Specific [place] > 1.045 (1.000-1.030) H 09/10/24 01:10 Urine Protein Trace (Negative) H 09/10/24 01:10 Urine Glucose (UA) Negative (Negative) 09/10/24 01:10 Urine Ketones Negative (Negative) 09/10/24 01:10 Urine Blood Trace (Negative) H 09/10/24 01:10 Urine Nitrite Negative (Negative) 09/10/24 01:10 Urine Bilirubin Negative (Negative) 09/10/24 01:10 Urine Urobilinogen Negative (Negative) 09/10/24 01:10 Ur Leukocyte Esterase Negative (Negative) 09/10/24 01:10 Urine WBC (Auto) 0-5 /hpf (0-5) 09/10/24 01:10 Urine RBC (Auto) 6-10 /hpf (0-2) H 09/10/24 01:10 U Hyaline Cast (Auto) 0-2 /lpf (0-2) 09/10/24 01:10 U Epithel Cells (Auto) 0-2 /hpf (0-2) 09/10/24 01:10 Urine Bacteria (Auto) None Seen (None Seen) 09/10/24 01:10 Anaplasma Smear See Comment 09/09/24 21:42 Babesia Smear See Comment 09/09/24 21:42 Lyme Disease Screen Negative (Negative) 09/09/24 21:42 Impressions Chest X-Ray 09/09/24 21:55 Exam(s): XR CXR 1 VIEW EXAM: XR Chest, 1 View CLINICAL HISTORY: Reason for exam: dizziness. TECHNIQUE: Frontal view of the chest. COMPARISON: No relevant prior studies available. IMPRESSION: 1. Cardiomegaly. 2. Mild atelectatic changes at the lung bases. Electronically signed by: Alex Lerma MD 09/10/24 02:59 AM Foot X-Ray 09/09/24 22:11 Exam(s): XR LEFT FOOT, 2 views EXAM: XR Left Foot, 1 view CLINICAL HISTORY: Reason for exam: great toe pain, redness. TECHNIQUE: Lateral imaging of the foot was obtained. COMPARISON: No relevant prior studies available. IMPRESSION: 1. Single lateral image of the foot shows soft tissue swelling. No obvious evidence of fracture. 2. Enthesophyte formation at the Achilles tendon insertion and plantar fascia origin. Additional degenerative changes in the midfoot. Electronically signed by: Alex Lerma MD 09/10/24 03:05 AM KUB X-Ray 09/09/24 22:11 Exam(s): XR KUB EXAM: XR Abdomen, 1 View CLINICAL HISTORY: Reason for exam: abd pain, vomiting. TECHNIQUE: Frontal supine view of the abdomen/pelvis. COMPARISON: No relevant prior studies available. IMPRESSION: 1. Evaluation for free air limited by supine imaging. In addition, the abdomen was incompletely visualized. 2. Paucity of bowel gas limits evaluation with prominent bowel loops in the right hemiabdomen measuring up to 4.8 cm, some of which are favored to be colonic. Developing bowel obstruction is possible. If there is further concern, consider cross-sectional imaging. 3. Cholecystectomy clips. Electronically signed by: Alex Lerma MD 09/10/24 03:03 AM Abdomen/Pelvis CTA 09/09/24 22:12 Exam(s): CTA ABDOMEN + PELVIS With Contrast IV Amt: 115 ml optiray 320 EXAM: CT Angiography Abdomen and Pelvis With Intravenous Contrast CLINICAL HISTORY: Reason for exam: chest, back, abd pain, n/v. TECHNIQUE: Axial computed tomographic angiography images of the abdomen and pelvis with intravenous contrast. CTDI is 31.4 mGy and DLP is 1029.71 mGy-cm. Automated exposure control was utilized for the study. A dose lowering technique was utilized adhering to the principles of ALARA. MIP reconstructed images were created and reviewed. CONTRAST: Patient received 115 ml optiray 320 of IV contrast COMPARISON: No relevant prior studies available. FINDINGS: VASCULATURE: Aorta: No acute findings. No abdominal aortic aneurysm. No dissection. Celiac trunk and mesenteric arteries: No acute findings. No occlusion or significant stenosis. Renal arteries: No acute findings. No occlusion or significant stenosis. Iliac arteries: No acute findings. No occlusion or significant stenosis. Lung bases: Unremarkable. No mass. No consolidation. ABDOMEN: Liver: Unremarkable. No mass. Gallbladder and bile ducts: Unremarkable. No calcified stones. No ductal dilation. Pancreas: Unremarkable. No ductal dilation. No mass. Spleen: Unremarkable. No splenomegaly. Adrenals: Unremarkable. No mass. Kidneys and ureters: Unremarkable. No hydronephrosis. No solid mass. Stomach and bowel: Diverticulosis without evidence of diverticulitis. No obstruction. PELVIS: Appendix: No findings to suggest acute appendicitis. Bladder: Unremarkable. No mass. Reproductive: Unremarkable as visualized. ABDOMEN and PELVIS: Intraperitoneal space: Unremarkable. No significant fluid collection. No free air. Bones/joints: No acute fracture. No dislocation. Soft tissues: Unremarkable. Lymph nodes: Unremarkable. No enlarged lymph nodes. IMPRESSION: No acute findings in the arteries of the abdomen and pelvis. Electronically signed by: Chang Santoro MD 09/10/24 00:57 AM Chest CTA 09/09/24 22:12 Exam(s): CTA CHEST W/WO Contrast IV Amt: 115 ml optiray 320 EXAM: CT Angiography Chest Without and With Intravenous Contrast CLINICAL HISTORY: Reason for exam: chest, back, abd pain, n/v. TECHNIQUE: Axial computed tomographic angiography images of the chest without and with intravenous contrast. CTDI is 32.21 mGy and DLP is 2264 mGy-cm. Automated exposure control was utilized for the study. A dose lowering technique was utilized adhering to the principles of ALARA. MIP reconstructed images were created and reviewed. CONTRAST: Patient received 115 ml optiray 320 of IV contrast COMPARISON: No relevant prior studies available. FINDINGS: Pulmonary arteries: Mild pulmonary arterial hypertension. No pulmonary embolism. Aorta: 4.3 cm ascending thoracic aortic aneurysm. Lungs: Mild bibasilar dependent atelectasis. No mass. Pleural space: Unremarkable. No significant effusion. No pneumothorax. Heart: Unremarkable. No cardiomegaly. No significant pericardial effusion. No evidence of RV dysfunction. Bones/joints: No acute fracture. No dislocation. Soft tissues: Unremarkable. Lymph nodes: Unremarkable. No enlarged lymph nodes. IMPRESSION: No acute findings in the visualized arteries of the chest. 4.3 cm ascending thoracic aortic aneurysm No evidence of dissection. Electronically signed by: Chang Santoro MD 09/10/24 01:[address] 09/09/24 22:12 Exam(s): CT HEAD Without Contrast EXAM: CT Head Without Intravenous Contrast CLINICAL HISTORY: Reason for exam: n/v amx. TECHNIQUE: Axial computed tomography images of the head/brain without intravenous contrast. CTDI is 31.4 mGy and DLP is 1098 mGy-cm. Automated exposure control was utilized for the study. A dose lowering technique was utilized adhering to the principles of ALARA. COMPARISON: No relevant prior studies available. FINDINGS: Brain: Unremarkable. No hemorrhage. No significant white matter disease. No edema. Ventricles: Unremarkable. No ventriculomegaly. Bones/joints: Unremarkable. No acute fracture. Soft tissues: Unremarkable. Sinuses: Unremarkable as visualized. No acute sinusitis. Mastoid air cells: Unremarkable as visualized. No mastoid effusion. IMPRESSION: Normal head/brain CT. Electronically signed by: Chang Santoro MD 09/10/24 00:51 AM Code Status & VTE Plan Code Status Full code VTE Prophylaxis Plan VTE Prophylaxis will be ordered: Yes PG Care Time/CCT Total # of Minutes Spent Total Time Spent with Patient: Total time spent is greater than 50% in coordination of care (as documented) at patient's floor/unit and/or counseling patient: Coding Level of Care Code 06117 INT INP/OBS CARE 3/75MIN Diagnoses Acute metabolic encephalopathy G93.41 Acute respiratory failure with hypoxia J96.01 Healthcare-associated pneumonia J18.9 Left leg cellulitis L03.116 Gouty arthritis of left great toe M10.9 CANDELARIO (acute kidney injury) N17.9 Bradycardia with 41-50 beats per minute R00.1 Dehydration, moderate E86.0
[2024-09-10] MEDS: DOXYCYCLINE HYCLATE 100 MG in DEXTROSE 5% MINI-B 100 ML IV STA (02:31)
[2024-09-10] MEDS: SODIUM CHLORIDE 0.9% 1,000 ML IV STA (02:31)
[2024-09-10] MEDS: ONDANSETRON INJ 2 MG/ML 2 ML VIAL ONE (02:37)
--- NOTE | 2024-09-10 03:00 | XRay Report ---
Exam(s): XR CXR 1 VIEW EXAM: XR Chest, 1 View CLINICAL HISTORY: Reason for exam: dizziness. TECHNIQUE: Frontal view of the chest. COMPARISON: No relevant prior studies available. IMPRESSION: 1. Cardiomegaly. 2. Mild atelectatic changes at the lung bases. Electronically signed by: Alex Lerma MD 09/10/24 02:59 AM
--- NOTE | 2024-09-10 03:05 | XRay Report ---
Exam(s): XR KUB EXAM: XR Abdomen, 1 View CLINICAL HISTORY: Reason for exam: abd pain, vomiting. TECHNIQUE: Frontal supine view of the abdomen/pelvis. COMPARISON: No relevant prior studies available. IMPRESSION: 1. Evaluation for free air limited by supine imaging. In addition, the abdomen was incompletely visualized. 2. Paucity of bowel gas limits evaluation with prominent bowel loops in the right hemiabdomen measuring up to 4.8 cm, some of which are favored to be colonic. Developing bowel obstruction is possible. If there is further concern, consider cross-sectional imaging. 3. Cholecystectomy clips. Electronically signed by: Alex Lerma MD 09/10/24 03:03 AM
--- NOTE | 2024-09-10 03:06 | XRay Report ---
Exam(s): XR LEFT FOOT, 2 views EXAM: XR Left Foot, 1 view CLINICAL HISTORY: Reason for exam: great toe pain, redness. TECHNIQUE: Lateral imaging of the foot was obtained. COMPARISON: No relevant prior studies available. IMPRESSION: 1. Single lateral image of the foot shows soft tissue swelling. No obvious evidence of fracture. 2. Enthesophyte formation at the Achilles tendon insertion and plantar fascia origin. Additional degenerative changes in the midfoot. Electronically signed by: Alex Lerma MD 09/10/24 03:05 AM
[2024-09-10] MEDS ORDERED: DEXTROSE 50% 50 ML SYRINGE IV PRN (03:45)
[2024-09-10] MEDS ORDERED: CARBOHYDRATES FOR HYPOGLYCEMIA PO PRN (03:45)
[2024-09-10] MEDS ORDERED: GLUCOSE 10 TAB/TUBE PO PRN (03:45)
[2024-09-10] MEDS ORDERED: GABAPENTIN 600 MG TAB PO SCH (03:45)
[2024-09-10] MEDS ORDERED: GLUCOSE 40% GEL 15 GM TUBE PO PRN (03:45)
[2024-09-10] MEDS ORDERED: GLUCAGON FOR INJ 1 MG VIAL SQ PRN (03:45)
[2024-09-10] MEDS: INSULIN ASPART PER UNIT CHARGE SC SCH ×2 (05:13→17:11)
[2024-09-10] MEDS: PIPERACILLIN/TAZOBACTAM 4.5 GM/100 ML BAG IV SCH (05:13)
[2024-09-10 06:23] LABS: Basophils # (auto) 0.03 K/uL (0.00-0.20); Basophils % (auto) 0.4 %; Hematocrit (blood only) 36.1 % (42.0-52.0); Hemoglobin 12.2 g/dl (14.0-18.0); Immature Granulocytes # (auto) 0.04 K/uL (0.01-0.20); Immature Granulocytes % (auto) 0.5 %; Lymphocytes # (auto) 1.44 K/uL (1.20-3.40); Lymphocytes % (auto) 19.4 %; Mean Corpuscular Hgb Conc 33.8 g/dL (32.0-36.0); Mean Corpuscular Volume 91.9 fL (80.0-100.0); Mean Platelet Volume 9.9 fL (9.4-12.4); Monocytes # (auto) 0.42 K/uL (0.11-0.59); Monocytes % (auto) 5.6 %; Neutrophils # (auto) 5.51 K/uL (1.40-6.50); Neutrophils % (auto) 74.1 %; Platelet Count 188 K/uL (130-400); RDW Coefficient of Variation 12.2 % (11.5-14.5); RDW Standard Deviation 41.3 fL (36.4-46.3); Red Blood Count 3.93 M/uL (4.70-6.10); White Blood Count 7.44 K/ul (4.8-10.8)
[2024-09-10 06:42] LABS: Albumin Level 3.3 gm/dl (3.4-5.0); Calcium 8.3 mg/dl (8.6-10.3); Creatinine Clr Calc Pharmacy 62.8 ml/min; Magnesium 2.1 mg/dl (1.7-2.4); Phosphorus 3.8 mg/dl (2.5-4.9); Potassium 4.6 mmol/L (3.5-5.1)
[2024-09-10 06:49] LABS: Troponin I High Sensitivity 2.5 pg/ml (0-20)
[2024-09-10 07:27] LABS: Estimated Average Glucose 120 mg/dl; Hemoglobin A1C 5.8 % (4.5-5.6)
[2024-09-10] MEDS: GABAPENTIN 600 MG TAB PO SCH ×2 (08:22→20:45)
[2024-09-10] MEDS: CHOLECALCIFEROL 125 MCG (5,000 UNITS) TAB PO SCH (08:22)
[2024-09-10] MEDS: TAMSULOSIN HCL 0.4 MG CAP PO SCH (08:22)
[2024-09-10] MEDS: ASPIRIN 81 MG ECTAB PO SCH (08:23)
[2024-09-10] MEDS: PRAMIPEXOLE DIHYDROCHLO 0.5 MG TAB PO SCH (08:23)
--- NOTE | 2024-09-10 08:26 | Electrocardiogram Report ---
Test Reason : Blood Pressure : */* mmHG Vent. Rate : 51 BPM Atrial Rate : 51 BPM P-R Int : 166 ms QRS Dur : 102 ms QT Int : 460 ms P-R-T Axes : 35 -5 23 degrees QTcB Int : 423 ms Sinus bradycardia Minimal voltage criteria for LVH, may be normal variant ( R in aVL ) Borderline ECG When compared with ECG of 01-Sep-2024 11:42, No significant change was found Confirmed by Bartolo Smith ([id number]) on 09/10/2024 8:26:04 AM Referred By: REFERRED SELF Confirmed By: Bartolo Smith
[2024-09-10] MEDS: HEPARIN SOD 5,000 UNIT/0.5 ML VIAL SQ SCH (08:28)
--- NOTE | 2024-09-10 13:20 | XRay Report ---
XR KUB/Abdomen 1 view CLINICAL HISTORY: concern for bowel obstruction, f/o xray TECHNIQUE: 1 view of the abdomen was obtained. Comparison: Comparison is made to abdomen radiograph 09/09/2024 FINDINGS: Lung bases are unremarkable. Degenerative changes are seen in the visualized skeleton. The bowel gas pattern is nonobstructive. A moderate amount of stool is noted within the large bowel. IMPRESSION: Nonobstructive bowel gas pattern. ACT 112: Negative or not required by law. Electronically signed by: Miguel Ángel Gonzalez M.D. 09/10/2024 1:18 PM
[2024-09-10] MEDS: COUGH DROP (SUGAR FREE) LOZ 24 LOZ/1 BOX BUCCAL ONE (13:25)
[2024-09-10] MEDS: COUGH DROP (SUGAR FREE) LOZ 24 LOZ/1 BOX BUCCAL STA (13:25)
[2024-09-10] MEDS: LINEZOLID 600 MG/300 ML BAG IV SCH (13:25)
--- NOTE | 2024-09-10 14:22 | XCELERA ---
[id number] [id number]
[2024-09-10] MEDS: DOXYCYCLINE HYCLATE 100 MG in DEXTROSE 5% MINI-B 100 ML IV SCH (15:02)
--- NOTE | 2024-09-10 15:24 | Communication Note ---
Date of Service: September 10, 2024 Acute metabolic encephalopathy/sepsis /confusion- Multiple contributing factors including but not limited to: Acute kidney injury, dehydration, HCAP, left lower extremity cellulitis, acute gouty arthritis left great toe, bradycardia The patient will be admitted to telemetry for serial cardiac enzymes, serial EKG's, cardiac rhythm monitoring and a 2-D echocardiogram with Dopplers. HCAP/JANIE- Pulse ox 88% on room air upon arrival Improved with oxy mask to 99% 6 L/min, now on 2L nasal cannula Patient does wear his CPAP at bedtime Linezolid 600 mg IV every 12 hours Zosyn 4.5 g IV every 8 hours Doxycycline 100 mg IV every 12 hours continue broad spectrum pending BC. Bradycardia- Heart rate in the range of 41-46 May be secondary to sepsis Hold Cardizem CD 120 mg daily Patient reportedly did receive atropine IV by EMS en route Initial troponin 5.8 on admission, with follow-up 2.5 Tick panel negative. Consult cardiology Acute kidney injury/moderate dehydration/due to nephrectomy has a single kidney- Hold telmisartan/HCTZ Avoid NSAIDs s/p IVF creatinine WNL 09/10 Left lower extremity cellulitis/acute gouty arthritis left right toe- Antibiotics as above Uric acid 7.6, likely aggravated in part by being on HCTZ, which will be held as above Give colchicine 0.6 mg p.o. now, and then 0.6 mg p.o. twice daily Avoid NSAIDs due to renal insufficiency Prediabetes- Glucose 160 on admission Placed on Accu-Cheks with NovoLog SSI A1c 5.8% Ascending thoracic aortic aneurysm- 4.3 cm on CTA chest Can be followed serially as outpatient
--- NOTE | 2024-09-10 16:02 | Cardiology Consultation ---
Date of Consultation September 10, 2024 Assessment & Plan (1) Bradycardia with 41-50 beats per minute: Etiology of his bradycardia is not readily apparent, may be vasovagal component given his abdominal discomfort (left lower quadrant tenderness). He should remain off diltiazem, as this washes out perhaps heart rate will normalize. No evidence of heart block or major pauses thus far, continue on telemetry. No indication for transvenous pacemaker as he has normotensive and has no symptoms attributable to hypoperfusion. (2) Thoracic aortic aneurysm: As noted, chest CT yesterday shows stable findings. No symptoms to suggest dissection. (3) Pneumonia: On IV antibiotics. (4) Acute metabolic encephalopathy: Hemodynamic derangements would not account for this, likely toxic/metabolic. Plan Will continue to follow along from a cardiology standpoint. History of Present Illness Reason for Consultation: bradycardia Requesting Physician: Volodymyr Julian Attending Physician: Volodymyr Julian History of Present Illness 79-year-old man with history of ascending thoracic aortic aneurysm, otherwise no significant past cardiac history, multiple medical problems, admitted earlier today with change in mental status and incidentally noted to be bradycardic (on diltiazem 120 mg daily). Chest CT yesterday showed 4.3 cm ascending thoracic aortic aneurysm (stable or actually reduced diameter compared with 2020 2021 studies). As noted, no other cardiac history.He also noted that he had some ECG on admission showed sinus bradycardia 51 bpm with minimal voltage for LVH, isoelectric ST segments. Compared with 09/01/2024 study, rate had declined by 15 bpm, otherwise no significant change. Echocardiogram today showed EF 55 to 60% with normal wall motion, borderline dilated RV with preserved function, mild AI with mild aortic root dilation (4.2 cm), normal RVSP. Troponin value yesterday 5.8, today 2.5. Lyme screen was negative. At the time of my evaluation this afternoon, patient was somewhat somnolent but arousable and cooperative. He had noted some earlier nausea which resolved and had some mild left lower quadrant discomfort and left first MTP joint tenderness and erythema. He denied chest pain, dyspnea, or palpitations. No lightheadedness, presyncope, or syncope. Telemetry has shown mild sinus bradycardia without pauses or heart block. Allergies Allergy/AdvReac Type Severity Reaction Status Date / Time No Known Drug Allergies Allergy Verified 09/01/24 13:06 house dust mite AdvReac Verified 09/01/24 13:06 Home Medications Medication Instructions Recorded Confirmed Type finasteride 5 mg tablet (Proscar) 5 mg PO QAM 11/15/20 09/10/24 History gabapentin 600 mg tablet 600 mg PO .COMPLEX 03/10/21 09/10/24 History (Neurontin) aspirin 81 mg tablet,delayed 81 mg PO QAM 05/24/21 09/10/24 History release ([place] Low Dose Aspirin) cholecalciferol (vitamin D3) 125 5,000 units PO QAM 05/24/21 09/10/24 History mcg (5,000 unit) capsule (Dialyvite Vitamin D) omeprazole 20 mg capsule,delayed 20 mg PO DAILYBB 05/24/21 09/10/24 History release pravastatin 10 mg tablet 10 mg PO HS 05/24/21 09/10/24 History diltiazem HCl 120 mg 120 mg PO DAILY 08/11/23 09/10/24 History capsule,extended release 24 hr telmisartan 80 1 tab PO DAILY 08/11/23 09/10/24 History mg-hydrochlorothiazide 12.5 mg tablet (Micardis HCT) ibuprofen 600 mg tablet 600 mg PO Q8H PRN pain #14 tabs 08/14/23 09/10/24 Rx cephalexin 500 mg capsule 500 mg PO BID 7 days #14 caps 09/04/24 09/10/24 Rx tamsulosin 0.4 mg capsule 0.8 mg PO DAILY 09/04/24 09/10/24 History pramipexole 0.5 mg tablet 0.5 mg PO DAILY 09/10/24 09/10/24 History Patient History Medical History Epistaxis Hypophosphatemia Former smoker Surgical History S/P tonsillectomy and adenoidectomy S/P shoulder surgery S/P nasal septoplasty S/P carpal tunnel release S/p nephrectomy Family History Mother Kidney malignancy Grandfather Prostate cancer Myocardial infarction Denies family history of Colon cancer Ovarian cancer Breast cancer Social History Smoking Status: Former smoker Tobacco Type: Cigarettes Second Hand Exposure: No; Do You Dip or Chew Tobacco: No; Tobacco Cessation Education Requested by Patient: No Hx Alcohol Use: No Hx Substance Use: No Preferred Language: Upper Sorbian Communication Ability: Effective Visual Impairment: No Limitations Hearing Ability: Normal Drawing In Hand Required: No Beliefs That Will Affect Care: None marital status: Current Living Situation: Spouse current occupational status: employed Other Information That Helps Us Care for You: No Feels Safe at Home: Yes Safety Concerns: Feels Safe At This Time Childhood Exposure to Second-Hand Smoke: Yes Diet: regular Dental Care, Regularly: Yes Physical Activity Frequency: 5-6 Times per Week Seatbelt Use: always Sunscreen Use: Yes Assistive Devices: Cane Physical Exam Physical Exam: No distress. Afebrile. BP normotensive. Pulse 57 bpm and regular. Respirations 20 but unlabored. Skin: Stasis changes left greater than right lower extremity, no generalized lesions. HEENT: unremarkable. Neck: JVP difficult to assess but appears only minimally elevated, no carotid bruits. Lungs: Decreased breath sounds but clear. Cardiac: regular mildly bradycardic rhythm, normal S1-2, no murmur. Abdomen: Mild tenderness left lower quadrant, no guarding or rigidity. Extremities: 1+ pretibial edema, pulses intact. Neurologic: Somnolent but readily arousable, answers simple questions appropriately, nonfocal. Results & Data Laboratory Results Normal electrolytes, BUN 25, creatinine 1.19. Magnesium 2.1. Hemoglobin 12.2 with normal white count and platelet count. No recent TSH on chart. Diagnostic Findings ECG as noted in HPI. Chest CT as noted in HPI. Abdomen/pelvis CT with no acute findings. PG Care Time/CCT Total # of Minutes Spent Total Time Spent with Patient: Total time spent is greater than 50% in coordination of care (as documented) at patient's floor/unit and/or counseling patient: Coding Level of Care Code 61320 IN/OBS CONSULT LVL 4,60M Diagnoses Bradycardia with 41-50 beats per minute R00.1 Thoracic aortic aneurysm I71.2 Pneumonia J18.9 Laterality: bilateral Lung location: lower lobe of lung Pneumonia type: due to unspecified organism Acute metabolic encephalopathy G93.41 (3) Pneumonia Laterality: bilateral Lung location: lower lobe of lung Pneumonia type: due to unspecified organism Qualified Code(s): J18.9 - Pneumonia, unspecified organism
[2024-09-10] MEDS: ONDANSETRON INJ 2 MG/ML 2 ML VIAL IV PRN (20:44)
[2024-09-10] MEDS: COLCHICINE 0.6 MG TAB PO SCH (20:45)
[2024-09-11 07:08] LABS: Basophils # (auto) 0.03 K/uL (0.00-0.20); Basophils % (auto) 0.4 %; Eosinophils # (auto) 0.16 K/uL (0.00-0.50); Eosinophils % (auto) 2.4 %; Hematocrit (blood only) 36.7 % (42.0-52.0); Hemoglobin 12.2 g/dl (14.0-18.0); Immature Granulocytes # (auto) 0.03 K/uL (0.01-0.20); Immature Granulocytes % (auto) 0.4 %; Lymphocytes # (auto) 1.54 K/uL (1.20-3.40); Lymphocytes % (auto) 23.1 %; Mean Corpuscular Hemoglobin 30.7 pg (25.0-34.0); Mean Corpuscular Hgb Conc 33.2 g/dL (32.0-36.0); Mean Corpuscular Volume 92.2 fL (80.0-100.0); Mean Platelet Volume 9.6 fL (9.4-12.4); Monocytes # (auto) 0.55 K/uL (0.11-0.59); Monocytes % (auto) 8.2 %; Neutrophils # (auto) 4.37 K/uL (1.40-6.50); Neutrophils % (auto) 65.5 %; Platelet Count 160 K/uL (130-400); RDW Coefficient of Variation 12.3 % (11.5-14.5); RDW Standard Deviation 41.2 fL (36.4-46.3); Red Blood Count 3.98 M/uL (4.70-6.10); White Blood Count 6.68 K/ul (4.8-10.8)
[2024-09-11 07:28] LABS: Albumin Level 3.1 gm/dl (3.4-5.0); BUN Creatinine Ratio 12.1 (10-20); Calcium 8.3 mg/dl (8.6-10.3); Creatinine Clr Calc Pharmacy 50.4 ml/min; Phosphorus 2.9 mg/dl (2.5-4.9); Potassium 3.9 mmol/L (3.5-5.1)
[2024-09-11 07:44] LABS: Thyroid Stimulating Hormone 0.555 uIu/ml (0.300-4.500)
[2024-09-11] MEDS: SODIUM CHLORIDE 0.9% 500 ML IV SCH (10:11)
--- NOTE | 2024-09-11 12:01 | Cardiology Progress Note ---
Date of Service September 11, 2024 Assessment & Plan (1) Sinus bradycardia: (2) Thoracic aortic aneurysm: (3) Pneumonia: (4) Acute metabolic encephalopathy: Plan Persistent but mild sinus bradycardia which is asymptomatic. No pauses or heart block. As noted, heart rate increases appropriately with activity. Would simply have him remain off diltiazem, he is normotensive currently but if he were to become hypertensive could use an alternative agent (such as amlodipine) without negative chronotropic properties. No ongoing cardiac issues, will sign off. Please contact if change in clinical status or additional questions. Admission and Anticipated Discharge Date Admission Date: September 10, 2024 Subjective He is doing well. No somatic complaints. Denies chest pain, dyspnea, palpitations, or lightheadedness. No further abdominal discomfort. Telemetry showed sinus bradycardia in the 50 to 60 bpm range. At the time of my visit this morning, had the patient ambulate the hallways with his walker, his heart rate increased from 50 bpm to 74 bpm and he had no dyspnea, lightheadedness, or any other symptoms. Physical Exam Physical Exam: No distress. BP normotensive. Pulse 55 bpm and regular. Skin: Stasis changes left greater than right lower extremity, no generalized lesions. HEENT: unremarkable. Neck: JVP difficult to assess but appears only minimally elevated, no carotid bruits. Lungs: Decreased breath sounds but clear. Cardiac: regular mildly bradycardic rhythm, normal S1-2, no murmur. Abdomen: Mild tenderness left lower quadrant, no guarding or rigidity. Extremities: 1+ pretibial edema, pulses intact. Neurologic: Awake and alert, nonfocal. Results & Data Laboratory Results Normal electrolytes, BUN 18, creatinine 1.49. PG Care Time/CCT Total # of Minutes Spent Total Time Spent with Patient: Total time spent is greater than 50% in coordination of care (as documented) at patient's floor/unit and/or counseling patient: Coding Level of Care Code 76055 SUB INP/OBS CARE 2/35MIN Diagnoses Sinus bradycardia R00.1 Thoracic aortic aneurysm I71.2 Pneumonia J18.9 Laterality: bilateral Lung location: lower lobe of lung Pneumonia type: due to unspecified organism Acute metabolic encephalopathy G93.41 (3) Pneumonia Laterality: bilateral Lung location: lower lobe of lung Pneumonia type: due to unspecified organism Qualified Code(s): J18.9 - Pneumonia, unspecified organism
--- NOTE | 2024-09-11 12:52 | Infectious Disease Consult ---
Date of Consultation September 11, 2024 Assessment & Plan (1) Left leg cellulitis: (2) CANDELARIO (acute kidney injury): (3) Gouty arthritis of left great toe: Plan 79yo M with h/o peripheral neuropathy, renal cancer s/p nephrectomy, JANIE, BPH, osteoarthritis, ascending thoracic aortic aneurysm, recent admission 09/01-09/04 with LLE cellulitis x 1 wk following injury s/p cefazolin-> Keflex on dc x 7d who presented on 09/10 with acute onset of nausea and vomiting after eating dinner. He subsequently reported pain all over and was confused from his baseline. Here he has been afebrile, initially hypoxic and placed on 2L NC, up to 6L and now on RA. Initial labs with WBC 9.99, Cr 1.54, AST/ALT wnl. ESR 41, CRP 3.83, PCT 0.02. UA with 0-5 WBC. BCX ngtd. Tick panel sent, lyme negative. Left foot XR with no fracture, soft tissue swelling. CTAP with no acute findings. Chest CTA with no acute findings in visualized arteries, no dissection, lungs with mild bibasilar dependent atelectasis. CT head wnl. KUB with nonobstructive bowel gas pattern. He has received zosyn, vanc, linezolid, and doxycycline. ID consulted 09/11. Regarding his LLE, compared to pictures he showed me from before, his cellulitis seems much improved. He was prescribed 7 more days of therapy, which should have ended 09/10 (or today if he picked up script on 09/05). He has some residual skin changes as well as some redness of his left toe with foot swelling, that is seemingly related to gout. Will keep on linezolid for now and follow up exam tomorrow. Also add MRSA screen. Regarding c/f PNA, CT chest does not have any consolidation. He denies any respiratory symptoms and PCT is quite low. No fevers. He did have some hypoxia on admission and possible he may have had aspiration pneumonitis related to his episode of vomiting. # Recent LLE cellulitis, residual redness # L great toe gout # Hypoxia on admission resolved, possible aspiration pneumonitis 2/2 vomiting # AMS resolved - Claire ordered MRSA screen - f/u BCX - Claire stopped zosyn and doxycycline - will keep on linezolid for MRSA and strep coverage for LLE ID will continue to follow. If questions or concerns, contact via [employer] or Infectious Disease Call Center . Aisha Mulligan MD [facility], Division of Infectious Diseases Consultation Information Consultation was provided via telemedicine using two-way real-time interactive telecommunication between the patient and the telemedicine provider. For the duration of the visit, the provider was performing the assessment from a different facility than the patient. This includesuse of bluetooth stethoscope forauscultationperformed by the telepresenter that the telemedicine provider can hear if described in the physical exam. Separating Machine Operator contact information: Please call [facility] Call Center . (Phone Number For Physician Use Only) After establishing a telemedicine visit, patient was: Patient was verified with two unique identifiers, Patient/authorized rep acknowledged consent and understanding and Gave permission to continue telehealth session Time Spent with Patient: Initial => 75 min History of Present Illness Reason for Consultation: LLE cellulitis Attending Physician: Volodymyr Julian History of Present Illness 79yo M with h/o peripheral neuropathy, renal cancer s/p nephrectomy, JANIE, BPH, osteoarthritis, ascending thoracic aortic aneurysm, recent admission 09/01-09/04 with LLE cellulitis x 1 wk following injury s/p cefazolin-> Keflex on dc x 7d who presented on 09/10 with acute onset of nausea and vomiting after eating dinner. He subsequently reported pain all over and was confused from his baseline. Here he has been afebrile, initially hypoxic and placed on 2L NC, up to 6L and now on RA. Initial labs with WBC 9.99, Cr 1.54, AST/ALT wnl. ESR 41, CRP 3.83, PCT 0.02. UA with 0-5 WBC. BCX ngtd. Tick panel sent, lyme negative. Left foot XR with no fracture, soft tissue swelling. CTAP with no acute findings. Chest CTA with no acute findings in visualized arteries, no dissection, lungs with mild bibasilar dependent atelectasis. CT head wnl. KUB with nonobstructive bowel gas pattern. He has received zosyn, vanc, linezolid, and doxycycline. ID consulted 09/11. On evaluation, patient reports he is feeling well. He doesnt recall feeling confused. He denies feeling short of breath. Has a little bit of cough. He notes left great toe pain that he was told was from gout, but hasnt improved with 1 dose of colchicine. Denies prior h/o gout. He feels like his left leg is much improved from his initial presentation last admission. He has been taking his antibiotics at discharge as was prescribed. He denies having had any fevers. He notes having ticks around where he lives, no recent outdoors activities aside from working on the snow plow, which had caused his initial injury. No back pain currently. Had abdominal pain, an episode of vomiting the day prior, no diarrhea. Allergies Allergy/AdvReac Type Severity Reaction Status Date / Time No Known Drug Allergies Allergy Verified 09/01/24 13:06 house dust mite AdvReac Verified 09/01/24 13:06 Home Medications Medication Instructions Recorded Confirmed Type finasteride 5 mg tablet (Proscar) 5 mg PO QAM 11/15/20 09/10/24 History gabapentin 600 mg tablet 600 mg PO .COMPLEX 03/10/21 09/10/24 History (Neurontin) aspirin 81 mg tablet,delayed 81 mg PO QAM 05/24/21 09/10/24 History release ([place] Low Dose Aspirin) cholecalciferol (vitamin D3) 125 5,000 units PO QAM 05/24/21 09/10/24 History mcg (5,000 unit) capsule (Dialyvite Vitamin D) omeprazole 20 mg capsule,delayed 20 mg PO DAILYBB 05/24/21 09/10/24 History release pravastatin 10 mg tablet 10 mg PO HS 05/24/21 09/10/24 History diltiazem HCl 120 mg 120 mg PO DAILY 08/11/23 09/10/24 History capsule,extended release 24 hr telmisartan 80 1 tab PO DAILY 08/11/23 09/10/24 History mg-hydrochlorothiazide 12.5 mg tablet (Micardis HCT) ibuprofen 600 mg tablet 600 mg PO Q8H PRN pain #14 tabs 08/14/23 09/10/24 Rx cephalexin 500 mg capsule 500 mg PO BID 7 days #14 caps 09/04/24 09/10/24 Rx tamsulosin 0.4 mg capsule 0.8 mg PO DAILY 12/05/24 12/11/24 History pramipexole 0.5 mg tablet 0.5 mg PO DAILY 09/10/24 09/10/24 History Patient History Medical History Epistaxis Hypophosphatemia Former smoker Surgical History S/P tonsillectomy and adenoidectomy S/P shoulder surgery S/P nasal septoplasty S/P carpal tunnel release S/p nephrectomy Family History Mother Kidney malignancy Grandfather Prostate cancer Myocardial infarction Denies family history of Colon cancer Ovarian cancer Breast cancer Social History Smoking Status: Former smoker Tobacco Type: Cigarettes Second Hand Exposure: No; Do You Dip or Chew Tobacco: No; Tobacco Cessation Education Requested by Patient: No Hx Alcohol Use: No Hx Substance Use: No Preferred Language: Spanish Communication Ability: Effective Visual Impairment: No Limitations Hearing Ability: Normal Exercise Teacher Required: No Beliefs That Will Affect Care: None marital status: Current Living Situation: Spouse current occupational status: employed Other Information That Helps Us Care for You: No Feels Safe at Home: Yes Safety Concerns: Feels Safe At This Time Childhood Exposure to Second-Hand Smoke: Yes Diet: regular Dental Care, Regularly: Yes Physical Activity Frequency: 5-6 Times per Week Seatbelt Use: always Sunscreen Use: Yes Assistive Devices: Cane Review of System 10-point review of systems reviewed and are negative except for as above. Physical Exam Physical Exam: General: Awake, alert, no acute distress HEENT: NC/AT, EOMI, mmm Neck: supple, no LAD Lungs: clear Heart: no appreciable murmurs Abdomen: soft, NT/ND Back: no spinal tenderness Ext: LLE with edema, skin with what seems like chronic changes (much improved redness compared to picture on his phone from when cellulitis started), left great toe pain, some mild erythema on the side Neuro: moving all extremities Results & Data Vital Signs (Past 12 Hours) Vital Signs Temp Pulse Pulse Resp BP BP Pulse Ox 09/11/24 10:56 55 L 19 133/76 92 09/11/24 07:40 36.5 C 52 L 18 107/65 90 09/11/24 07:35 51 L 12/12/24 04:04 36.5 C 52 L 18 115/64 91 09/11/24 03:45 Pulse Ox O2 Del Method O2 Del Method 09/11/24 10:56 Room Air 09/11/24 07:40 Room Air 09/11/24 07:35 09/11/24 04:04 CPAP 09/11/24 03:45 91 CPAP Laboratory Results Labs reviewed. Diagnostic Findings Imaging reviewed.
--- OUTSIDE RECORDS SUMMARY | 2024-09-11 12:57 | External Medical Summary | Continuity of Care Document ---
Author Name Unknown Organization [address] [facility] [address] [place], [place] [id number] Care Team Providers Care Marine Architect Name Role Phone Moni Pickett Primary Care Physician [phone] [facility]counter [facility] [id number] Date(s): 09/01/24 - 09/01/[address] [place] A [address] [address] [phone] Encounter Diagnosis Cellulitis of leg(Discharge Diagnosis) - 09/01/24 Discharge Disposition: Home or Self Care Attending Physician: EMMANUEL Araiza Tara Allergies, Adverse Reactions, Alerts No Known Medication Allergies Substance Criticality Severity Reaction Reaction Severity Status Dust mite upper resp symptoms Active Assessment and Plan Extracted from: Title:ER follow up Author:EMMANUEL Araiza Tara Date :09/01/24 1.Cellulitis of leg Acute/Chronic: acute Goal:Resolution/ control Status:ongoing Data: records/pt report Plan: Cellulitis has worsened as it is now extending into foot. His pain has also gotten worse. No fevers. I am concerned for possible compartment syndrome. Recommend re-eval back at ER for possible IV abx, imaging to evalfor DVT and/or compartment syndromeandpossibleadmission. Offered transport via EMS. Declined. will transport pt. ER called to make aware that he is coming. time spent reviewing chart, face to face visit, ordersand documentation: 35 min Immunizations Given and Recorded Vaccine Date Status Refusal Reason influenza virus vaccine, inactivated 07/11/24 Sam rded influenza virus vaccine, inactivated 07/23/23 Sam rded influenza virus vaccine, inactivated 06/16/22 Give n influenza virus vaccine, inactivated 06/21/21 Give n influenza virus vaccine, inactivated 1 06/21/20 Re corded RSV Vaccine Unspecified 07/23/23 Recorded SARS-CoV-2 mRNA ([id number]) 03/13/22 Re corded SARS-CoV-2 (COVID-19) mRNA-1273 vaccine 09/27/21 R ecorded SARS-CoV-2 (COVID-19) mRNA-1273 vaccine 2 03/31/21 Recorded SARS-CoV-2 (COVID-19) mRNA-1273 vaccine 02/18/21 R ecorded pneumococcal 13-valent vaccine 3 12/24/18 Recorded tetanus/diphtheria/pertuss, acel (Tdap) 4 04/01/17 Recorded tetanus/diphtheria/pertuss, acel (Tdap) 01/29/13 R ecorded zoster vaccine live 07/01/14 Recorded pneumococcal 23-valent vaccine 01/29/13 Recorded 1Result Comment: [facility]- pt stated 2Result Comment: 2021-12-27: Historical information-source unspecified 3Result Comment: Route: Unknown 4Result Comment: Unit: 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[employer] Medications aspirin 81 mg oral tablet Start: 07/29/07 10:59:18 AM EDT, 1 tab, PO, Daily, Refills: 0, current medication from another provider Start Date: 07/29/07 Status: Ordered B-Complex 50 oral tablet Start: 07/17/19 10:58:00 AM EDT, 1 tab, PO, Daily Start Date: 07/17/19 Status: Ordered cefdinir 300 mg oral capsule Start: 09/01/24 10:19:00 AM EST, 18 cap, 0 Refill(s) Start Date: 09/01/24 Status: Ordered diclofenac 1% topical gel Start: 04/02/24 3:05:00 PM EDT, 2 g =, topical, qid, Disp# 100 g, Refills: 3, not to exceed 16 grams/day/single joint of lower extremities, PRN: Pain, Pharmacy: [id number] Start Date: 04/02/24 Status: Ordered DilTIAZem (Eqv-Cardizem CD) 120 mg/24 hours oral capsule, extended release Start: 01/21/24 1:31:00 PM EDT, See Instructions, Disp# 90 cap, Refills: 3, TAKE 1 CAPSULE DAILY, Pharmacy: [id number] Start Date: 01/21/24 Status: Ordered finasteride 5 mg oral tablet Start: 01/09/23 12:57:00 PM EDT, See Instructions, Disp# 90 tab, Refills: 3, TAKE 1 TABLET DAILY, Pharmacy: [facility] Start Date: 01/09/23 Status: Ordered Flonase 50 mcg/inh nasal spray Start: 12/14/22 5:08:00 PM EDT, 2 spray, intranasal, Daily, Disp# 16 g, Refills: 3, Pharmacy: [facility] Start Date: 12/14/22 Status: Ordered gabapentin 600 mg oral tablet Start: 01/07/24 11:10:00 AM EDT, 1 tab, PO, tid, Disp# 270 tab, Refills: 3, Pharmacy: [id number] Start Date: 01/07/24 Status: Ordered Micardis 80 mg oral tablet Start: 10/23/23 12:05:00 PM EST, 1 tab, PO, Daily, Disp# 90 tab, Refills: 3, Pharmacy: [id number] Start Date: 10/23/23 Status: Ordered mirtazapine 7.5 mg oral tablet Start: 04/02/24 2:54:00 PM EDT, 1 tab, PO, qhs, Disp# 30 tab, Refills: 6, Pharmacy: [id number] Start Date: 04/02/24 Status: Ordered multivitamin Start: 09/29/11 3:10:00 PM EST, 1 tab, PO, Daily, tab Start Date: 09/29/11 Status: Ordered omeprazole 20 mg oral delayed release capsule Start: 05/08/24 4:45:00 PM EDT, 1 cap, PO, Daily, Disp# 90 cap, Refills: 3, Pharmacy: [id number] Start Date: 05/08/24 Status: Ordered oxyBUTYnin 5 mg/24 hours oral tablet, extended release Start: 04/08/24 3:00:00 PM EDT, 1 tab, PO, Daily, Disp# 30 tab, Refills: 6, Take 1 tablet daily., PRN: as needed for urinary discomfort, Pharmacy: [id number] Start Date: 04/08/24 Status: Ordered pramipexole 0.5 mg oral tablet Start: 4/22/24 1:31:00 PM EDT, 1 tab, PO, Daily, Disp# 90 tab, X 90 day, Refills: 3, Stop: 01/15/25 1:31:00 PM EDT, Pharmacy: [id number] Start Date: 01/21/24 Stop Date: 01/15/25 Status: Ordered pravastatin 20 mg oral tablet Start: 01/28/24 4:58:00 PM EDT, See Instructions, Disp# 90 tab, Refills: 3, TAKE 1 TABLET DAILY, Pharmacy: [id number] Start Date: 01/28/24 Status: Ordered ProAir HFA 90 mcg/inh inhalation aerosol Start: 07/25/22 11:46:00 AM EDT, 1 puff, inhaled, qid, Disp# 18 g, Refills: 1, PRN: as needed for wheezing, Pharmacy: [id number] Start Date: 07/25/22 Status: Ordered tamsulosin 0.4 mg oral capsule Start: 09/07/23 4:22:00 PM EST, See Instructions, Disp# 180 cap, Refills: 3, TAKE 2 CAPSULES DAILY, Pharmacy: [id number] Start Date: 09/07/23 Status: Ordered traZODone 100 mg oral tablet Start: 01/02/23 8:56:00 PM EDT, See Instructions, Disp# 90 tab, Refills: 3, TAKE 1 TABLET AT BEDTIME,Pharmacy: [facility] Start Date: 01/02/23 Status: Ordered Vitamin D3 5000 intl units oral capsule Start: 07/17/19 9:07:00 AM EDT, 1 cap, PO, Daily Start Date: 07/17/19 Status: Ordered Mental Status 09/01/24 Barriers to Learning one year None evide nt Mandatory Health Literacy Documentation Yes Health Literacy Communication Barriers N ever Primary Language Angolan Problem List Condition Confirmation Course Effective Dates Status H ealth Status Informant Acute gout Confirmed Active Memory loss Confirmed Active Ascending aortic aneurysm Confirmed Active Ankle edema Confirmed Active Atypical pneumonia Confirmed Active Acute bilateral back pain Confirmed Active Bacterial pneumonia Confirmed Active Cellulitis Confirmed Active Chronic cough Confirmed Active Chronic insomnia Confirmed Active Chronic kidney disease (CKD) Confirmed [...] apnea) Confirmed Active Toenail fungus Confirmed Active Epididymo-orchitis Confirmed Active Annual physical exam Confirmed Active Post-nasal drip Confirmed Active PND (post-nasal drip) Confirmed Active Prediabetes Confirmed Active Renal mass Confirmed Active Renal mass Confirmed Active RLS (restless legs syndrome) Confirmed Active Tongue ulcer Confirmed Active Urinary urgency Confirmed Active Venous insufficiency Confirmed Active Loss of weight Confirmed Active Diagnosis Diagnosis Type Effective Dates Health Status Clinical Service Informant Cellulitis of leg Discharge Diagnosis 09/01/24 Non-Specified Procedures Procedure Date Related Diagnosis Body [...] Tonsillectomy and adenoidectomy Completed 1UOC Right shoulder [address] [place] [address] Impression: 1. No acute fracture or abnormality. [...] to oldest [Reference Range]: 1 Patient Weight 109.5 kg (09/01/24 10:19 AM) Heart Rate 86 bpm (09/01/24 10:19 AM) Respiratory Rate 18 br/min (09/01/24 10:19 AM) Blood Pressure 104/56mmHg (09/01/24 10:19 AM) Social History Social History Type Response Tobacco Former smoker, Start ed age 16 Years. Stopped age 37 Years. Smoking Status Former Smoker, quit > 1 yr Sex Male Sex Representation Male (finding) FCM Outpt Note * EMMANUEL Araiza Tara: PERFORM Event Display: [facility] Outpt Note Authored Date: [id number] Chief Complaint f/u [facility] ER visit on 08/29 - states was seen for LT foot swelling & LT marie. Pt continues to c/o pain, is currently on ABX. 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 Went to ER 2-3 days laterdue to swelling and pain. US of left lower ext neg for DVT. XR tib/fib neg for fracture. Did have nonspecific subcutaneous edema. CBC, CMP unremarkable. Was given IV abx in ER. Sent home oncefidinir.He has been elevating and using warm compresses. He is here today for re-eval. Hedenies fevers, SOB or chest pain. Leg pain is worse. His left lower ext is edematous. The rednesshasextended to foot from the marie. Review of Systems Constitutional: No fever, chills, sweats Pulmonary: No shortness of breath, dyspnea with exertion, cough, hemoptysis, wheezing, chest pain. Cardiovascular: No chest pain, palpitations, syncope, cyanosis, claudication, orthopnea. Musculoskeletal: No joint swelling or pain, muscle pain, back pain Neurologic: No headache, lightheadedness, dizziness, Psychiatric: No depression, anxiety Dermatologic: as per HPI Physical Exam Vitals & Measurements HR:86(Monitored) RR:18 BP:104/56 SpO2:90% WT:109.5kg WT:109.500kg(Dosing) PHQ2 Data(Data Documented on:09/01/2024 10:19) Emotional health assessment NEGATIVE head- normocephalic Pulmonary- chest expansion symmetric, CTA (clear to auscultation), eupnea, no adventitious sounds (rales, crackles, wheezes) CV (cardiovascular)- RRR no m/r/g (systolic ejection murmur, rubs, gallops), good peripheral perfusion extremitieslet lowerextedematous, erythemaanteriorshinapprox3/[address]from ankletoknee.Painful totouch. Increaseintemp. Alsoleft footerythematous andedematous.Unable to palpate pulse mostlikely duetoedema. Neuro:Alert, Oriented Assessment/Plan 1.Cellulitis of leg Acute/Chronic: acute Goal:Resolution/ control Status:ongoing Data: records/pt report Plan:Cellulitis has worsened as it is now extending into foot. His pain has also gotten worse. Nofevers. I am concerned for possible compartment syndrome. Recommend re-eval back at ER for possibleIV abx, imaging to evalfor DVT and/or compartment syndromeandpossibleadmission. Offered transport via EMS. Declined. will transport pt. ER called to make aware that he is coming. time spent reviewing chart, face to face visit, ordersand documentation: 35 min Problem List/Past Medical History Ongoing Acute bilateral back pain Acute gout Ankle edema Annual physical exam Ascending aortic aneurysm Atypical pneumonia Bacterial pneumonia Cellulitis Chronic cough Chronic insomnia Chronic kidney disease (CKD) COVID-19 OVIEDO (dyspnea on exertion) Edema Enlarged prostate without lower urinary tract symptoms (luts) Epididymo-orchitis Esophageal reflux Generalized osteoarthritis HTN (hypertension) HTN (hypertension) Hyperlipidemia Insomnia Loss of weight Lower urinary tract symptoms Memory loss Neuropathy Neuropathy of lower extremity JANIE (obstructive sleep apnea) PND (post-nasal drip) Post-nasal drip Prediabetes Renal mass Renal mass RLS (restless legs syndrome) Toenail fungus Tongue ulcer Urinary urgency Venous insufficiency Resolved AK (actinic keratosis) Lipoma of skin SK (seborrheic keratosis) Tachycardia Procedure/Surgical History Joint injection| Service Date: 02/08/2022Injection into shoulder joint| Service Date: 12/14/2021X-ray tomography of right shoulder| Service Date: 12/14/2021X-ray tomography of lumbar spine| Service Date: 12/09/2021olonoscopy| Service Date: 10/10/2021XR - Chest X-ray| Service Date: 10/28/2020olonoscopy| Service Date: 01/14/2018Shave biopsy and cauterization of skin| Service Date: 09/23/2015Partial nephrectomy| Service Date: 08/06/2007shoulder surgerycarpal tunnel releaseTonsillectomy and adenoidectomyNasal septoplasty Medications albuterol(ProAir HFA 90 mcg/inh inhalation aerosol), 1 puff, inhaled, qid, PRN, 1 refills aspirin(aspirin 81 mg oral tablet), 81 mg= 1 tab, PO, Daily cefdinir(cefdinir 300 mg oral capsule) cholecalciferol(Vitamin D3 5000 intl units oral capsule), 5000 Int_Unit= 1 cap, PO, Daily diclofenac topical(diclofenac 1% topical gel), 2 g, topical, qid, PRN, 3 refills dilTIAZem(DilTIAZem (Eqv-Cardizem CD) 120 mg/24 hours oral capsule, extended release), See Instructions, 3 refills finasteride(finasteride 5 mg oral tablet), See Instructions fluticasone nasal(Flonase 50 mcg/inh nasal spray), 100 mcg= 2 spray, intranasal, Daily, 3 refills gabapentin(gabapentin 600 mg oral tablet), 600 mg= 1 tab, PO, tid, 3 refills mirtazapine(mirtazapine 7.5 mg oral tablet), 7.5 mg= 1 tab, PO, qhs, 6 refills multivitamin, 1 tab, PO, Daily multivitamin(B-Complex 50 oral tablet), 1 tab, PO, Daily omeprazole(omeprazole 20 mg oral delayed release capsule), 1 cap, PO, Daily oxyBUTYnin(oxyBUTYnin 5 mg/24 hours oral tablet, extended release), 5 mg= 1 tab, PO, Daily, PRN, 6 refills pramipexole(pramipexole 0.5 mg oral tablet), 0.5 mg= 1 tab, PO, Daily, 3 refills pravastatin(pravastatin 20 mg oral tablet), See Instructions, 3 refills tamSULOsin(tamsulosin 0.4 mg oral capsule), See Instructions, 3 refills telmisartan(Micardis 80 mg oral tablet), 80 mg= 1 tab, PO, Daily, 3 refills traZODone(traZODone 100 mg oral tablet), See Instructions Allergies Dust miteupper resp symptoms No Known Medication Allergies Social History Smoking Status Former Smoker, quit > 1 yr Alcohol Use:Current Type:Beer Frequency:1-2 times per month Employment/School Status:Retired Exercise Exercise type:Walking Tobacco Use:Former smoker Started at age:16Years Stopped at age:37Years Family History Heart disease: PGF. Hypertension: Mother. Kidney cancer, primary, with metastasis from kidney to other site....: Mother. Stroke: PGF. Health Status Family Member(s) Immunizations Vaccine Date Status influenza virus vaccine, inactivated 07/11/2024 Recorded influenza virus vaccine, inactivated 07/23/2023 Recorded RSV Vaccine Unspecified 07/23/2023 Recorded influenza virus vaccine, inactivated 06/16/2022 Given SARS-CoV-2 mRNA ([id number]-lolr-bas) 03/13/2022 Recorded SARS-CoV-2 (COVID-19) mRNA-1273 vaccine 09/27/2021 Recorded influenza virus vaccine, inactivated 06/21/2021 Given SARS-CoV-2 (COVID-19) mRNA-1273 vaccine 03/31/2021 Recorded Comments : 2021-12-27: Historical information-source unspecified SARS-CoV-2 (COVID-19) mRNA-1273 vaccine 02/18/2021 Recorded influenza virus vaccine, inactivated 06/21/2020 Recorded Comments : [facility]- pt stated pneumococcal 13-valent vaccine 12/24/2018 Recorded Comments : Route: Unknown tetanus/diphtheria/pertuss, acel (Tdap) 04/01/2017 Recorded Comments : Unit: 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[employer] Corona zoster vaccine live 07/2014 Recorded pneumococcal 23-valent vaccine 01/29/2013 Recorded tetanus/diphtheria/pertuss, acel (Tdap) 01/29/2013 Recorded Recommendations Health Maintenance Pending(in the next year) OverDue Medicare Annual Wellness Visit due02/28/22and every 1year Due Adult Social Determinants of Health Screening due09/01/24Unknown Frequency Body Mass Index due09/01/24Unknown Frequency Shingles Vaccine due09/01/24One-time only Due In Future Adult Influenza Vaccine not due until03/30/25and every 1year Satisfied(in the past 1 year) Satisfied Adult Influenza Vaccine on07/11/24.Satisfied by KETAN Solis Natalie Diabetes Management A1c on04/18/24.Satisfied by Contributor_system, [id number] Lipid Screening on04/18/24.Satisfied by Contributor_system, [id number] Electronic Signature on File Electronically Reviewed/Signed by: EMMANUEL Santiago Author Signature Dt/Tm:09/01/2024 11:07 AM Department of Family Medicine TB Patient Care team information Care Team Personnel Name: MD Piyush, Moni Steve Position: Physician - Family Med Member Role: Primary Care Provider Address: [address] [place] [id number] [place] Name: MD Patino Claudia J Position: Physician - Radiologist Member Role: Lifetime Relationship Address: [address] [place] [id number] [place] Name: DREW Schmidt Lynn Position: Physician Dental Assistant Teacher Exempt - Vasc Surg Member Role: Lifetime Relationship Address: [address] [place] [id number] Care Team Related Persons Name: ANTWON LOCKETT Name: CALVIN LOCKETT"
--- NOTE | 2024-09-11 15:43 | Hospitalist Progress Note ---
Date of Service September 11, 2024 Assessment & Plan (1) Left leg cellulitis: Plan: Patient presented to the ER on 09/10 for change in mental status, increased need for sleep, persistent LLE cellulitis and SOB w/ exertion. Last hospital admission from 09/01 - 09/04 treated with IV Cefazolin and transitioned to PO Keflex x 1 week on discharge. Left foot x-ray 09/10: single lateral image of foot shows soft tissue swelling. no obvious evidence of fx. Enthesophyte formation at Achilles tendon insertion and plantar fascia origin. Infectious disease consulted 09/10 given persistent cellulitis., discussed with Dr. Mulligan via phone. Continue Linezolid, check for MRSA stop doxycycline and Zosyn CBC reviewed 09/11 w/o leukocytosis, hgb 12.2. Blood cultures negative at 24h jack.Continue to monitor. AM CBC, CRP (2) Gouty arthritis of left great toe: Plan: Uric acid 7.6 Likely from HCTZ, currently on hold. Continue Colchicine 0.6mg BID. Avoid further NSAIDs due to renal insufficiency (3) CANDELARIO (acute kidney injury): Plan: Patient with history of Nephrectomy. Baseline creatinine 1.2-1.3 Telmisartan and HCTZ currently on hold. BMP reviewed 09/11: creatinine increased to 1.49 Encourage PO intake s/p 500ml IVF 09/11. AM BMP (4) Bradycardia with 41-50 beats per minute: Plan: Patient has been bradycardic since presentation. Reportedly given atropine IV en route via EMS. Echo 09/10: LVEF 55-60%, mild LVH, grade 1 diastolic dysfunction, RV borderline dilated, mild aortic regurgitation, mild aortic root dilation Troponin negative. Tick panel negative. Cardiology consulted 09/10 Remain off Diltiazem no evidence of heart block or major pauses thus far, continue on tele. no indication for pacemaker. Patient has been normotensive, if becomes HTN consider amlodipine (5) Acute respiratory failure with hypoxia: Plan: Patient originally hypoxic on arrival w/ O2 sat of 88%. Patient given supplemental oxygen and has improved to room air. Resolved Low suspicion for pneumonia given negative image findings and mild cough as symptom. Chest CTA - 4.3cm ascending thoracic aneurysm, follow up imaging outpatient CXR - cardiomegaly, mild atelectatic changes at lung base. Continue CPAP at bedtime Plan Chronic conditions: Neuropathy: continue gabapentin BPH: continue Flomax Diet: heart healthy DVT prophylaxis: heparin code status: full disposition: telemetry Updated at bedside 09/11 Admission and Anticipated Discharge Date Admission Date: September 10, 2024 Subjective Patient seen and examined this morning. at bedside. Patient reports to be feeling better today. He reports no further SOB and has been on room air. He still has pain in his left great toe but denies any additional complaints. Physical Exam Constitutional: WD/WN, vitals as above Eyes: PERRL, conjunctivae normal, anicteric sclerae Respiratory: breathing unlabored Cardiovascular: well perfused Musculoskeletal: erythema LLE. erythema and tender to palpation of left great toe. warm of LLE > then RLE Psychiatric: A+Ox3, euthymic affect Results & Data Results & Data Vital Signs (Past 12 Hours) Vital Signs Temp Pulse Pulse Resp BP BP Pulse Ox 09/11/24 14:54 36.6 C 50 L 19 139/78 92 09/11/24 10:56 55 L 19 133/76 92 09/11/24 07:40 36.5 C 52 L 18 107/65 90 09/11/24 07:35 51 L 09/11/24 04:04 36.5 C 52 L 18 115/64 91 09/11/24 03:45 Pulse Ox O2 Del Method O2 Del Method 09/11/24 14:54 Room Air 09/11/24 10:56 Room Air 09/11/24 07:40 Room Air 09/11/24 07:35 09/11/24 04:04 CPAP 09/11/24 03:45 91 CPAP PG Care Time/CCT Total # of Minutes Spent Total Time Spent with Patient: Total time spent is greater than 50% in coordination of care (as documented) at patient's floor/unit and/or counseling patient: Coding Level of Care Code 94355 SUB INP/OBS CARE 3/50MIN Diagnoses Left leg cellulitis L03.116 Gouty arthritis of left great toe M10.9 CANDELARIO (acute kidney injury) N17.9 Bradycardia with 41-50 beats per minute R00.1 Acute respiratory failure with hypoxia J96.01
[2024-09-12 06:27] LABS: Basophils # (auto) 0.03 K/uL (0.00-0.20); Basophils % (auto) 0.4 %; Eosinophils # (auto) 0.31 K/uL (0.00-0.50); Eosinophils % (auto) 4.3 %; Hematocrit (blood only) 37.9 % (42.0-52.0); Hemoglobin 12.8 g/dl (14.0-18.0); Immature Granulocytes # (auto) 0.02 K/uL (0.01-0.20); Immature Granulocytes % (auto) 0.3 %; Lymphocytes # (auto) 1.82 K/uL (1.20-3.40); Lymphocytes % (auto) 25.3 %; Mean Corpuscular Hemoglobin 30.7 pg (25.0-34.0); Mean Corpuscular Hgb Conc 33.8 g/dL (32.0-36.0); Mean Corpuscular Volume 90.9 fL (80.0-100.0); Mean Platelet Volume 10.1 fL (9.4-12.4); Monocytes # (auto) 0.64 K/uL (0.11-0.59); Monocytes % (auto) 8.9 %; Neutrophils # (auto) 4.38 K/uL (1.40-6.50); Neutrophils % (auto) 60.8 %; Platelet Count 162 K/uL (130-400); RDW Standard Deviation 39.8 fL (36.4-46.3); Red Blood Count 4.17 M/uL (4.70-6.10)
[2024-09-12 06:45] LABS: Albumin Level 3.1 gm/dl (3.4-5.0); BUN Creatinine Ratio 12.8 (10-20); C Reactive Protein 1.42 mg/dl (0-0.5); Calcium 8.6 mg/dl (8.6-10.3); Creatinine Clr Calc Pharmacy 53.2 ml/min; Phosphorus 3.1 mg/dl (2.5-4.9); Potassium 3.8 mmol/L (3.5-5.1)
[2024-09-12 11:52] LABS: Adenovirus F 40/41 PCR Not Detected (NotDetected); Astrovirus PCR Not Detected (NotDetected); Campylobacter PCR Not Detected (NotDetected); Cryptosporidium PCR Not Detected (NotDetected); Cyclospora cayetanensis PCR Not Detected (NotDetected); Entamoeba histolytica PCR Not Detected (NotDetected); Enteroaggregative E.coli(EAEC) Not Detected (NotDetected); Enteropathogenic E.coli (EPEC) Not Detected (NotDetected); Enterotoxigenic E.coli (ETEC) Not Detected (NotDetected); Giardia lamblia PCR Not Detected (NotDetected); Norovirus GI/GII PCR Not Detected (NotDetected); Plesiomonas shigelloides PCR Not Detected (NotDetected); Rotavirus A PCR Not Detected (NotDetected); Salmonella PCR Not Detected (NotDetected); Sapovirus PCR Not Detected (NotDetected); Shiga-like Toxin E.coli (STEC) Not Detected (NotDetected); Shigella/Enteroinvasive E.coli Not Detected (NotDetected); Vibrio cholerae PCR Not Detected (NotDetected); Vibrio species PCR Not Detected (NotDetected); Yersinia enterocolitica PCR Not Detected (NotDetected)
--- NOTE | 2024-09-12 12:18 | Infectious Disease Progress Nt ---
Date of Service September 12, 2024 Assessment & Plan (1) Left leg cellulitis: (2) CANDELARIO (acute kidney injury): (3) Gouty arthritis of left great toe: Plan 79yo M with h/o peripheral neuropathy, renal cancer s/p nephrectomy, JANIE, BPH, osteoarthritis, ascending thoracic aortic aneurysm, recent admission 09/01-09/04 with LLE cellulitis x 1 wk following injury s/p cefazolin-> Keflex on dc x 7d who presented on 09/10 with acute onset of nausea and vomiting after eating dinner. He subsequently reported pain all over and was confused from his baseline. Here he has been afebrile, initially hypoxic and placed on 2L NC, up to 6L and now on RA. Initial labs with WBC 9.99, Cr 1.54, AST/ALT wnl. ESR 41, CRP 3.83>1.42, PCT 0.02. UA with 0-5 WBC. BCX ngtd. Tick panel sent, lyme negative. Left foot XR with no fracture, soft tissue swelling. CTAP with no acute findings. Chest CTA with no acute findings in visualized arteries, no dissection, lungs with mild bibasilar dependent atelectasis. CT head wnl. KUB with nonobstructive bowel gas pattern. He has received zosyn, vanc, linezolid, and doxycycline. ID consulted 09/11. Abx de-escalated to linezolid alone on 09/11 since patient did not have any respiratory symptoms and coverage for just LLE cellulitis. MRSA screen returned negative. C diff and GIPP negative. Claire changed linezolid to Keflex given still some redness and tenderness, though improving from before, and MRSA screen is negative. Would continue for 5 days. I did explain to him that he may have some residual skin changes after completion. Encouraged leg elevation. # LLE cellulitis - improving # L great toe gout - improving # Diarrhea C diff negative # Hypoxia on admission resolved, possible aspiration pneumonitis 2/2 vomiting # AMS resolved - Claire stopped linezolid - Claire started Keflex 500mg PO 4 times daily given improvement and only minimal tenderness remaining - monitor LLE on this regimen - plan for abx through 09/15 for LLE cellulitis if ongoing improvement ID will continue to follow. Please note that there will be no ID notes over the weekend. If questions or concerns arise, please contact the Infectious Disease Call Center and ask to speak with the covering ID physician. Aisha Mulligan MD [facility], Division of Infectious Diseases Admission and Anticipated Discharge Date Admission Date: September 10, 2024 Subjective Subsequent visit was provided via telemedicine using two-way real-time interactive telecommunication between the patient and the telemedicine provider. For the duration of the visit, the provider was performing the assessment from a different facility than the patient. This includesuse of bluetooth stethoscope forauscultationperformed by the telepresenter that the telemedicine provider can hear if described in the physical exam. Orthodontic Technician Assistant contact information: Please call [facility] Call Center . (Phone Number For Physician Use Only) After establishing a telemedicine visit, patient was: Patient was verified with two unique identifiers, Patient/authorized rep acknowledged consent and understanding and Gave permission to continue telehealth session Time Spent with Patient: Subsequent => 35 min Patient reports doing well. He started having loose stools last night and several episodes since then. No abdominal pain. Left leg feels better, pain is also getting better. Physical Exam Physical Exam: General: Awake, alert, no acute distress HEENT: NC/AT, EOMI, mmm Neck: supple, no LAD Abdomen: soft, NT/ND Ext: LLE with edema, dusky red skin changes, some warmth, notes mild tenderness on lateral side of leg, foot improving Neuro: moving all extremities Results & Data Vital Signs (Past 12 Hours) Vital Signs Temp Pulse Pulse Resp BP Pulse Ox O2 Del Method 09/12/24 11:34 36.4 C L 57 L 20 155/79 H 91 Room Air 09/12/24 08:07 36.4 C L 46 L 20 154/79 H 94 Room Air 09/12/24 07:32 45 L 09/12/24 03:54 36.9 C 52 L 18 152/71 H 94 CPAP Laboratory Results Labs reviewed. Diagnostic Findings Imaging reviewed.
[2024-09-12] MEDS ORDERED: LOPERAMIDE HCL 2 MG CAP PO PRN (13:38)
--- NOTE | 2024-09-12 13:55 | Hospitalist Progress Note ---
Date of Service September 12, 2024 Assessment & Plan (1) Left leg cellulitis: Plan: Patient presented to the ER on 09/10 for change in mental status, increased need for sleep, persistent LLE cellulitis and SOB w/ exertion. Last hospital admission from 09/01 - 09/04 treated with IV Cefazolin and transitioned to PO Keflex x 1 week on discharge. Left foot x-ray 09/10: single lateral image of foot shows soft tissue swelling. no obvious evidence of fx. Enthesophyte formation at Achilles tendon insertion and plantar fascia origin. Infectious disease following Doxycycline and Zosyn discontinued on 09/11 MRSA screen negative, Linezolid discontinued on 09/12 Started Keflex QID to continue through 09/15 CBC reviewed 09/12 w/o leukocytosis, hgb 12.8. CRP reviewed 09/12: 1.42, improving Blood cultures negative at 48h jack. AM CBC (2) Gouty arthritis of left great toe: Plan: Uric acid 7.6 Likely from HCTZ, currently on hold. Continue Colchicine 0.6mg BID. Avoid further NSAIDs due to renal insufficiency (3) Diarrhea: Plan: Patient has been persisting with diarrhea over last 24 hours per nursing staff Stool biofire and C diff testing negative Added probiotic q daily Imodium as needed. Patient also nauseous, given zofran started on pantoprazole BID, patient on omeprazole outpatient. (4) CANDELARIO (acute kidney injury): Plan: Patient with history of Nephrectomy. Baseline creatinine 1.2-1.3 Telmisartan and HCTZ currently on hold. BMP reviewed 09/12: creatinine decreased to 1.41 Encourage PO intake s/p 500ml IVF 09/11. AM BMP (5) Hypertension, essential: Plan: Patient previously on Diltiazem but has been discontinued due to persistent bradycardia. Patient remains hypertensive from overnight through 09/12 Added Amlodipine 2.5mg PO daily up titrate as needed. (6) Bradycardia with 41-50 beats per minute: Plan: Patient has been bradycardic since presentation. Reportedly given atropine IV en route via EMS. Echo 09/10: LVEF 55-60%, mild LVH, grade 1 diastolic dysfunction, RV borderline dilated, mild aortic regurgitation, mild aortic root dilation Troponin negative. Tick panel negative. Cardiology consulted 09/10 Remain off Diltiazem no evidence of heart block or major pauses thus far, continue on tele. no indication for pacemaker. if becomes HTN consider amlodipine (7) Acute respiratory failure with hypoxia: Plan: Patient originally hypoxic on arrival w/ O2 sat of 88%. Patient given supplemental oxygen and has improved to room air. Resolved. Low suspicion for pneumonia given negative image findings and mild cough as symptom. Chest CTA - 4.3cm ascending thoracic aneurysm, follow up imaging outpatient CXR - cardiomegaly, mild atelectatic changes at lung base. Continue CPAP at bedtime Plan Chronic conditions: Neuropathy: continue gabapentin BPH: continue Flomax Diet: heart healthy DVT prophylaxis: heparin code status: full disposition: telemetry Admission and Anticipated Discharge Date Admission Date: September 10, 2024 Subjective Patient seen and examined this morning. Patient reports to be feeling okay today. He reports his LLE is less painful and his left great toe is also left painful. He remains bradycardic Per nursing patient has had some looser stools and nausea today. Physical Exam Constitutional: WD/WN, vitals as above Eyes: PERRL, conjunctivae normal, anicteric sclerae Respiratory: breathing unlabored Cardiovascular: well perfused Musculoskeletal: LLE with mild erythema, left great toe erythema improving. Less tender to palpation Results & Data Results & Data Vital Signs (Past 12 Hours) Vital Signs Temp Pulse Pulse Resp BP Pulse Ox O2 Del Method 09/12/24 11:34 36.4 C L 57 L 20 155/79 H 91 Room Air 09/12/24 08:07 36.4 C L 46 L 20 154/79 H 94 Room Air 09/12/24 07:32 45 L 09/12/24 03:54 36.9 C 52 L 18 152/71 H 94 CPAP PG Care Time/CCT Total # of Minutes Spent Total Time Spent with Patient: Total time spent is greater than 50% in coordination of care (as documented) at patient's floor/unit and/or counseling patient: Coding Level of Care Code 70771 SUB INP/OBS CARE 2/35MIN Diagnoses Left leg cellulitis L03.116 Gouty arthritis of left great toe M10.9 Diarrhea, unspecified type R19.7 Diarrhea type: unspecified type CANDELARIO (acute kidney injury) N17.9 Hypertension, essential I10 Bradycardia with 41-50 beats per minute R00.1 Acute respiratory failure with hypoxia J96.01 (3) Diarrhea Diarrhea type: unspecified type Qualified Code(s): R19.7 - Diarrhea, unspecified
[2024-09-12] MEDS: PANTOprazole 40 MG TAB PO SCH (14:12)
[2024-09-12] MEDS: ADVANCED PROBIOTIC 625 MG CAPSULE PO SCH (14:13)
[2024-09-12] MEDS: amLODIPine BESYLATE 5 MG TAB PO SCH (14:43)
[2024-09-12] MEDS: cephALEXin 500 MG CAP PO SCH (14:43)
--- NOTE | 2024-09-12 16:57 | Cardiology Progress Note ---
Date of Service September 12, 2024 Assessment & Plan (1) Sinus bradycardia: (2) Thoracic aortic aneurysm: (3) Pneumonia: (4) Acute metabolic encephalopathy: Plan Persistent but mild sinus bradycardia which is asymptomatic. No pauses or heart block. As noted, bradycardic tendencies are longstanding, with similar magnitude of bradycardia dating back at least several years. Suspect his longstanding mild bradycardia is exacerbated by vagal stimulus from nausea. Etiology of nausea uncertain, abdomen/pelvic CT from 09/09 was unremarkable. On exam he had left lower quadrant tenderness the other day and right lower quadrant tenderness this afternoon. He has also had diarrhea, several drugs in his regimen could be contributing to his GI distress (linezolid, pramipexole, less likely gabapentin or pantoprazole). No indication that his nausea is secondary to his mild bradycardia given that he is normotensive and his symptoms occur even when supine (supine symptoms rare with bradycardia which is not profound). Continue to remain off diltiazem. In the absence of actual hypotension or symptoms clearly attributable to bradycardia, particularly given potentially reversible component of vagal stimulus, no indication for pacemaker. He is hemodynamically stable overall. Will sign off. Dr. Reyes will be rounding over the weekend and next week, please contact him if any change in clinical status or additional cardiology questions. Admission and Anticipated Discharge Date Admission Date: September 10, 2024 Subjective Visited patient today due to nursing concerns about persistent bradycardia. Patient's heart rate was in the 40-50 bpm range and went up to 50 to 60 bpm when ambulating. Patient notes persistent nausea and had some right lower quadrant tenderness on exam. He denied chest pain, dyspnea, or lightheadedness. Telemetry showed sinus bradycardia with rate generally in the 45-55 bpm range. No significant pauses or heart block. Of note, the patient has had similar levels of bradycardia dating at least back to 2020. Physical Exam Physical Exam: Appears mildly uncomfortable but not acutely distressed. Afebrile. BP normotensive. Pulse 45 bpm and regular. Skin: Stasis changes left greater than right lower extremity, no generalized lesions. HEENT: unremarkable. Neck: JVP difficult to assess but does not appear elevated. Lungs: Decreased breath sounds but clear. Cardiac: regular mildly bradycardic rhythm, normal S1-2, no murmur. Abdomen: Mild tenderness right lower quadrant, no guarding or rigidity. Extremities: Trace/1+ pretibial edema, pulses intact. Neurologic: Awake and alert, nonfocal. Results & Data Vital Signs (Past 12 Hours) Vital Signs Temp Pulse Pulse Resp BP Pulse Ox O2 Del Method 09/12/24 15:49 97.7 F 42 L 20 130/69 90 Room Air 09/12/24 11:34 97.5 F L 57 L 20 155/79 H 91 Room Air 09/12/24 08:07 97.5 F L 46 L 20 154/79 H 94 Room Air 09/12/24 07:32 45 L Laboratory Results Hemoglobin 12.8, normal white count platelet count. Normal electrolytes, BUN 18, creatinine 1.4. Magnesium 2.0. PG Care Time/CCT Total # of Minutes Spent Total Time Spent with Patient: Total time spent is greater than 50% in coordination of care (as documented) at patient's floor/unit and/or counseling patient: Coding Level of Care Code 48630 SUB INP/OBS CARE 2/35MIN Diagnoses Sinus bradycardia R00.1 Thoracic aortic aneurysm I71.2 Pneumonia J18.9 Laterality: bilateral Lung location: lower lobe of lung Pneumonia type: due to unspecified organism Acute metabolic encephalopathy G93.41 (3) Pneumonia Laterality: bilateral Lung location: lower lobe of lung Pneumonia type: due to unspecified organism Qualified Code(s): J18.9 - Pneumonia, unspecified organism
[2024-09-13 06:25] LABS: BUN Creatinine Ratio 13.1 (10-20); Calcium 8.7 mg/dl (8.6-10.3); Creatinine Clr Calc Pharmacy 50.8 ml/min; Magnesium 1.9 mg/dl (1.7-2.4)
[2024-09-13 08:00] VITALS: RESP 18; TEMP 97.9
--- NOTE | 2024-09-13 09:33 | Discharge Summary ---
Discharge Summary Date of Service September 13, 2024 Principal Dx & Hospital Course #1 = Principal Diagnosis (1) Left leg cellulitis: Patient presented to the ER on 09/10 for change in mental status, increased need for sleep, persistent LLE cellulitis and SOB w/ exertion. Last hospital admission from 09/01 - 09/04 treated with IV Cefazolin and transitioned to PO Keflex x 1 week on discharge. Left foot x-ray 09/10: single lateral image of foot shows soft tissue swelling. no obvious evidence of fx. Enthesophyte formation at Achilles tendon insertion and plantar fascia origin. Infectious disease following Doxycycline and Zosyn discontinued on 09/11 MRSA screen negative, Linezolid discontinued on 09/12 Started Keflex QID to continue through 09/15 CBC without leukocytosis throughout hospital stay CRP mildly elevated Blood cultures negative at 48h jack. (2) Gouty arthritis of left great toe: Uric acid 7.6 Likely from HCTZ, discontinued on discharge. Continue Colchicine 0.6mg BID out patient for additional 7 days or until seen by PCP. Avoid further NSAIDs due to renal insufficiency (3) Diarrhea: Likely secondary to prolonged abx use. Stool biofire and C diff testing negative Added probiotic q daily, continue on discharge. Imodium as needed. continue PPI outpatient, nausea resolved when started 09/12. (4) CANDELARIO (acute kidney injury): Patient with history of Nephrectomy. Baseline creatinine 1.2-1.3 Patient received IVF creatine 1.45 day of discharge. discontinued telmisartan - hctz (5) Hypertension, essential: Patient previously on Diltiazem but has been discontinued due to persistent bradycardia. patient to monitor BP and report readings to his PCP. Amlodipine 2.5mg given 09/12 and patient had mildly hypotensive readings overnight so this was discontinued 09/13. (6) Bradycardia with 41-50 beats per minute: Patient has been bradycardic since presentation. Reportedly given atropine IV en route via EMS. Echo 09/10: LVEF 55-60%, mild LVH, grade 1 diastolic dysfunction, RV borderline dilated, mild aortic regurgitation, mild aortic root dilation Troponin negative. Tick panel negative. Cardiology consulted 09/10 Remain off Diltiazem no evidence of heart block or major pauses thus far, continue on tele. no indication for pacemaker. if becomes HTN consider amlodipine (7) Acute respiratory failure with hypoxia: Patient originally hypoxic on arrival w/ O2 sat of 88%. Patient given supplemental oxygen and has improved to room air. Resolved. Low suspicion for pneumonia given negative image findings and mild cough as symptom. Chest CTA - 4.3cm ascending thoracic aneurysm, follow up imaging outpatient CXR - cardiomegaly, mild atelectatic changes at lung base. Continue CPAP at bedtime Plan Chronic conditions: Neuropathy: continue gabapentin BPH: continue Flomax Patient discharged home 09/13 Admission HPI Per Admitting Provider The patient is a 79-year-old male with a past medical history including history of malignant neoplasm of the kidney status post nephrectomy, hypertension, BPH that UTS, urinary tract infection history, acute left sided epididymo-orchitis, multiple pulmonary nodules, generalized osteoarthritis, JANIE, prediabetes, ascending thoracic aortic aneurysm, and peripheral neuropathy. The patient was brought to the emergency department due to 's concerns as noted above. The patient is somewhat disoriented and confused, his provides most of the narrative, and another information gathered from previous admission, current gather data, and emergency department notes Discharge Exam Constitutional WD/WN, vitals as above Eyes PERRL, conjunctivae normal, anicteric sclerae Respiratory breathing unlabored Cardiovascular well perfused Musculoskeletal erythema of left great toe improved, full ROM w/o pain demonstrated. LLE improved erythema Psychiatric A+Ox3, euthymic affect Discharge Plan Discharge Items Patient Disposition: Home - Self-Care Reason For Visit: BRADYCARDIA, SEPSIS HAP, LLE CELL, L FOOT GOUT Discharge Diagnosis: left lower extremity cellulitis, left foot gout Activity: Resume your previous activity Non-emergency contact: Primary Care Provider Call non-emergency contact if: you have any medication questions, your symptoms worsen, your pain is not controlled and you have a fever Follow-up/Referrals: Moni Pickett MD [Primary Care Provider] - Diet: Carb Consistent or DM2 and Heart Healthy Addtl Attending Provider Instructions: Mr. Sen, You were recently hospitalized for persistent cellulitis and left great toe gout. You were also found to have a low heart rate and were seen by a customer specialist who stated you did not require any further intervention. 1. Please take Keflex 500mg four times day through 09/15 Your next dose will be this afternoon, 09/13 Please take with food to avoid GI upset. 2. Please take a daily probiotic to help antibiotic side effects. 3. Please use imodium as needed twice daily for diarrhea. 4. Please stop taking your Diltazem and telmisartan-HCTZ 5. Please monitor your blood pressure at home and report readings to your PCP. 6. Please take Colchine 0.6mg twice daily for an additional week for your gout or until seen by your PCP. Your next dose will be this evening 09/13. 7. Please avoid NSAIDs. If you develop any worsening pain, drainage in left lower extremity, or experience fever/chills please report to the ER for further care. Sincerely, Mireille Jim PA-C Pending Studies at Discharge: No Stand-Alone Forms: My [facility] [employer]: [employer], Smoking Cessation Medications and DC Order Prescriptions: New cephalexin 500 mg Capsule 500 mg PO QID Qty: 10 0RF colchicine [Colcrys] 0.6 mg Tablet 0.6 mg PO BID Qty: 13 0RF Probiotic 3 billion cell capsule 3,000 mmu cells PO DAILY Qty: 14 0RF Rx Instructions: administer with a meal Continued finasteride [Proscar] 5 mg tablet 5 mg PO QAM gabapentin [Neurontin] 600 mg tablet 600 mg PO .COMPLEX Rx Instructions: 600 mg PO 1 tablet in am, 2 tablets in pm aspirin [[place] Low Dose Aspirin] 81 mg Tablet,Delayed Release (Dr/Ec) 81 mg PO QAM pravastatin 10 mg tablet 10 mg PO HS omeprazole 20 mg capsule,delayed release(DR/EC) 20 mg PO DAILYBB cholecalciferol (vitamin D3) [Dialyvite Vitamin D] 5,000 unit capsule 5,000 units PO QAM tamsulosin 0.4 mg capsule 0.8 mg PO DAILY pramipexole 0.5 mg tablet 0.5 mg PO DAILY Discontinued telmisartan-hydrochlorothiazid [Micardis HCT] 80-12.5 mg tablet 1 tab PO DAILY diltiazem HCl 120 mg capsule,extended release 24hr 120 mg PO DAILY ibuprofen 600 mg tablet 600 mg PO Q8H PRN (Reason: pain) Qty: 14 0RF cephalexin 500 mg capsule 500 mg PO BID 7 Days Qty: 14 0RF Discharge Orders: Discharge Order (Routine); Ordered 09/13/24 Ordered By: Mireille Jim Admission Data Admit Date/Time: 09/10/24 02:03 Attending Provider: Volodymyr Julian Admit Provider: Gabriel Eaton Primary Care Provider: Moni Pickett Other Providers: Gabriel Eaton; Jonathan Davis; Bartolo Smith; Kwame Heck; Robert Damon; Johnathan Miguel; Michael Hackett Jr; Jonas Reyes; Anju Russell; Mary Dwyer; Rigo Jaime; Rigo Bullard; Anmol Oneill; Roxanna Sneed; Marcus Beach; Nataliia Hebert; Daniel Craven; Marcus Chavez; Michael Knight; Rigoberto Cha; Loraine Sherman; Sophia Luke; Aisha Mulligan; Joanne Cheney; Lilliam Marrero; Allyn Ashley Hospital Stay Data Consultations 09/10/24 01:19 ED Decision to Admit Stat 09/10/24 12:36 Consult Cardiology Routine 09/11/24 08:54 Consult Infectious Diseases Routine Diagnostic Imagining Performed 09/09/24 22:12 CT angio abdomen pelvis w con Stat CT angio chest dissec wo/w con Stat CT head/brain wo con Stat Pending Results Patient Have Any Pending Studies at Discharge: No Discharge Instructions Given to Patient (Per Discharging Provider) Mr. Sen, Del[place] were recently hospitalized for persistent cellulitis and left great toe gout. You were also found to have a low heart rate and were seen by a customer specialist who stated you did not require any further intervention. 1. Please take Keflex 500mg four times day through 09/15 Your next dose will be this afternoon, 09/13 Please take with food to avoid GI upset. 2. Please take a daily probiotic to help antibiotic side effects. 3. Please use imodium as needed twice daily for diarrhea. 4. Please stop taking your Diltazem and telmisartan-HCTZ 5. Please monitor your blood pressure at home and report readings to your PCP. 6. Please take Colchine 0.6mg twice daily for an additional week for your gout or until seen by your PCP. Your next dose will be this evening 09/13. 7. Please avoid NSAIDs. If you develop any worsening pain, drainage in left lower extremity, or experience fever/chills please report to the ER for further care. Sincerely, Mireille Jim PA-C Total Time Total Time Spent Total Time Spent (In Minutes): 40 Total Time Includes: Examination of the Patient, Discharge Planning and Medication Reconciliation Coding Level of Care Code 37471 INP/OBS DISCH >30 MIN Diagnoses Left leg cellulitis L03.116 Gouty arthritis of left great toe M10.9 Diarrhea, unspecified type R19.7 Diarrhea type: unspecified type CANDELARIO (acute kidney injury) N17.9 Hypertension, essential I10 Bradycardia with 41-50 beats per minute R00.1 Acute respiratory failure with hypoxia J96.01
[2024-09-13 11:47] VITALS: PULSE 49; O2SAT 94
[2024-09-13 11:53] VITALS: BP 100/38
[2024-09-13 14:28] LABS: Babesia microti DNA Not Detected (Not Detected)
== END 2024-09-13 12:55 | disposition home or self-care (01) | DRG 602 ==
LOC: ED 21:33 → SUATTDRO 09-10 02:03 → 4W 09-10 02:03